=== PATIENT | male | born 1955 | race Caucasian/White ===

== ENCOUNTER 2017-08-10 16:48 | Emergency (ER) | payer SELFPAY ==
[~2017-08-10] VITALS: Ht 170.2 cm; Wt 73.0 kg
[2017-08-10 16:54] VITALS: BP 150/95
[2017-08-10] MEDS ORDERED: THIAMINE 100MG TABLET PO ONE (17:00)
[2017-08-10] MEDS ORDERED: PLEASE ENTER HEIGHT AND WEIGHT MC SCH (17:00)
[2017-08-10] MEDS ORDERED: PLEASE ENTER ALLERGIES MC SCH ×2 (17:00)
[2017-08-10] MEDS ORDERED: THIAMINE 100MG TABLET ONE (17:05)
[2017-08-10 17:32] LABS: BLOOD UREA NITROGEN 11 mg/dL (7-18)
[2017-08-10 18:19] LABS: HEMOGLOBIN 14.5 g/dL (13.7-18.0); WHITE BLOOD COUNT 5.5 x10^3/uL (3.4-10)
[2017-08-10 18:20] LABS: DIFF TOTAL CELLS COUNTED 100 CELL DIFF
[2017-08-10 18:25] LABS: ANISOCYTOSIS 1+; VERIFY COUNTS? YES
== END 2017-08-10 18:29 | disposition home or self-care (01) ==
LOC: ED 18:23
DX: F10.129 Alcohol abuse with intoxication, unspecified (principal); F19.10 Other psychoactive substance abuse, uncomplicated; Z00.00 Encounter for general adult medical examination without abnormal findings; I10 Essential (primary) hypertension
CPT/HCPCS: 36415; 80048; 82040; 85025; 99284

== ENCOUNTER 2017-08-11 15:27 | Emergency (ER) | payer MEDICAID, MEDICARE, OTHER ==
[~2017-08-11] VITALS: Ht 170.2 cm; Wt 64.8 kg
[2017-08-11] MEDS ORDERED: FAMOTIDINE 20 MG/2 ML ONE (15:52)
[2017-08-11] MEDS ORDERED: ONDANSETRON 2MG/ML, 2ML ONE (15:52)
[2017-08-11] MEDS ORDERED: SODIUM CHLORIDE 0.9% 1,000ML IVBOLUS ONE ×2 (16:00→16:30)
[2017-08-11] MEDS ORDERED: SODIUM CHLORIDE FLUSH 10ML SYR IVF ONE (16:00)
[2017-08-11] MEDS ORDERED: ONDANSETRON 2MG/ML, 2ML IVPush ONE (16:00)
[2017-08-11] MEDS ORDERED: FAMOTIDINE 20 MG/2 ML IVP ONE (16:00)
[2017-08-11 16:16] LABS: HEMATOCRIT 42.8 % (39.2-51.8); HEMOGLOBIN 14.6 g/dL (13.7-18.0)
[2017-08-11 16:28] LABS: ASPARTATE AMINO TRANSFERASE 142 U/L (15-37); BLOOD UREA NITROGEN 13 mg/dL (7-18)
[2017-08-11 16:49] LABS: DIFF TOTAL CELLS COUNTED 100 CELL DIFF
[2017-08-11 16:52] LABS: ANISOCYTOSIS 1+
[2017-08-11 16:54] LABS: VERIFY COUNTS? YES
[2017-08-11 17:00] VITALS: BP 141/98
[2017-08-11] MEDS ORDERED: OMNIPAQUE 350 MG/ML, 100ML BOTTLE ONE (17:42)
== END 2017-08-11 18:30 | disposition home or self-care (01) ==
LOC: ED 15:50
DX: K70.0 Alcoholic fatty liver (principal); F10.221 Alcohol dependence with intoxication delirium
CPT/HCPCS: 36415; 74177; 80053; 80307; 82140; 83605; 83690; 85025; 96361; 96374; 96375; 99285; J2405; J7030; Q9967; G0479; S0028

== ENCOUNTER 2018-09-20 22:57 | Emergency (ER) | payer SELFPAY ==
[~2018-09-20] VITALS: Ht 170.2 cm; Wt 67.1 kg
[2018-09-21 00:05] VITALS: BP 156/97
== END 2018-09-21 00:41 | disposition home or self-care (01) ==
LOC: ED 09-21 00:28
DX: J20.8 Acute bronchitis due to other specified organisms (principal); J44.9 Chronic obstructive pulmonary disease, unspecified; I10 Essential (primary) hypertension; F17.200 Nicotine dependence, unspecified, uncomplicated; Z87.19 Personal history of other diseases of the digestive system
CPT/HCPCS: 71046; 99284

== ENCOUNTER 2018-11-07 17:00 | Emergency (ER) | payer SELFPAY ==
[~2018-11-07] VITALS: Ht 170.2 cm; Wt 77.3 kg
[~2018-11-07 17:00] MED LIST: ALLO100T30 PO; CARV6.2512 PO; CEFT2FRO2 IV; ERGO500017 PO; FLUT1BLS INH; FOLI-17 PO; FOND2.5D3 SQ; MULT-658 PO; NICO-487 TD; PRED10TA PO; SENN1TAB8 PO; THIA100T67 PO; VANC125C2 PO
[2018-11-07] MEDS ORDERED: DIPH,PERTUSS(ACELL),TET VAC/PF 0.5 ML IM-VACC ONE (17:30)
--- NOTE | 2018-11-07 17:39 | NUR ---
LATE NOTE ENTRY FOR 170: PT BROUGHT IN BY EMS FOR MECHANICAL GLF AND ETOH. PT HAS SKIN TEARS ON BRIDGE OF NOSE WITH DRIED RED BLOOD. PT HAS SKIN TEARS ON TOP OF RIGHT HAND WITH DRIED RED BLOOD. NADN. PT GCS 15. PT IS ALERT, ORIENTED TO SELF, PLACE, AND SITUATION. PT IS AGITATED AND STATES, "FUCK YOU BITCH, YOU PUT ME IN THIS DUMP. FUCKING LEAVE ME ALONE" WHEN THIS RN REQUESTED TO TAKE PT'S TEMPERTURE UPON ARRIVAL TO ED. PT IS RESING ON GURNEY CONNECTED TO NIBP AND CONTINOUS PULSE OX, ALL SAFETY MEASURES IN PLACE AND T.V. ON PER PT REQUEST WITH CALL LIGHT WITHIN REACH AND WARM BLANKETS PROVIDED FOR COMFORT MEASURES. NO NEEDS REQUESTED AT THIS TIME. IDANIA.
--- NOTE | 2018-11-07 17:53 | NUR ---
PT TRANSFERED TO IMAGING ON [facility].
--- NOTE | 2018-11-07 18:36 | NUR ---
PT REMOVED NIBP AND SPO2 MONITORS AND REFUSES TO HAVE VITAL SIGNS MONITORED. PT SLEEPING ON GURNEY WITH ALL SAFETY MEASURES IN PLACE AND WARM BLANKETS PROVIDED FOR COMFORT MEASURES. NADN. NO NEEDS EXPRESSED AT THIS TIME.
--- NOTE | 2018-11-07 18:51 | NUR ---
PROVIDED REPORT TO OMAR GAVIN. ALL QUESTIONS ANSWERED.
--- NOTE | 2018-11-07 19:00 | NUR ---
REPORT RECEIVED AND CARE ASSUMED. PT SLEEPING WITH RESP EVEN AND UNLABORED. BLANKET ON HIS HEAD.
--- NOTE | 2018-11-07 19:45 | NUR ---
PT MORE AROUSABLE AT THIS TIME. PT PLACED ON BP AND PULSE OX. PLACED ON O2. PT AGREES TO MONITORS AT THIS TIME. CALL LIGHT IN REACH AND PT AWARE NOT TO AMBULATE WITHOUT ASSISTANCE.
--- NOTE | 2018-11-07 20:40 | NUR ---
ATTEMPTED TO AMBULATE--PT UNABLE TO AMBULATE WITH STEADY GAIT. FALLING INTO KNIGHT AND NEEDING TO HANG ON TO BED FOR STABILITY. PT BACK TO BED. PLACED ON MONITORS. CALL LIGHT IN REACH.
--- NOTE | 2018-11-07 21:50 | NUR ---
PT SLEEPING WITH RESP EVEN AND UNLABORED. SIDE RAILS UP AND CALL LIGHT IN REACH.
--- NOTE | 2018-11-07 22:45 | NUR ---
PT SLEEPING. NO ACUTE CHANGES. REMAINS ON MONITORS. VSS.
--- NOTE | 2018-11-08 00:05 | NUR ---
NO ACUTE CHANGES. PT TO BE D/C HOME WHEN SAFE TO DO SO. CALL LIGHT IN REACH.
[2018-11-08 01:01] VITALS: BP 125/83
== END 2018-11-08 01:07 | disposition home or self-care (01) ==
LOC: ED 18:27
DX: S00.31XA Abrasion of nose, initial encounter (principal); S60.511A Abrasion of right hand, initial encounter; F10.220 Alcohol dependence with intoxication, uncomplicated; M54.2 Cervicalgia; I10 Essential (primary) hypertension; E11.9 Type 2 diabetes mellitus without complications; W19.XXXA Unspecified fall, initial encounter; Y93.89 Activity, other specified; Y92.410 Unspecified street and highway as the place of occurrence of the external cause; Y99.8 Other external cause status
CPT/HCPCS: 70450; 72125; 99284

== ENCOUNTER 2018-11-19 22:22 | Emergency (ER) | payer SELFPAY ==
[~2018-11-19] VITALS: Ht 170.2 cm; Wt 71.0 kg
[2018-11-19 22:33] VITALS: BP 139/90
[2018-11-19] MEDS ORDERED: DIPHENHYDRAMINE 50 MG CAPSULE PO ONE (23:00)
[2018-11-19] MEDS ORDERED: DIPHENHYDRAMINE 50 MG CAPSULE ONE (23:17)
== END 2018-11-19 23:47 | disposition home or self-care (01) ==
LOC: ED 23:30
DX: R21 Rash and other nonspecific skin eruption (principal); J44.9 Chronic obstructive pulmonary disease, unspecified; I10 Essential (primary) hypertension; E11.42 Type 2 diabetes mellitus with diabetic polyneuropathy
CPT/HCPCS: 99283

== ENCOUNTER 2018-12-26 23:43 | Emergency (ER) | payer MEDICARE ==
[~2018-12-26] VITALS: Ht 170.2 cm; Wt 71.0 kg
[2018-12-27] MEDS ORDERED: TRAZODONE (00:06)
[2018-12-27] MEDS ORDERED: CLONIDINE (00:06)
[2018-12-27] MEDS ORDERED: ZOLOFT (00:06)
[2018-12-27] MEDS ORDERED: CARVEDILOL (00:06)
[2018-12-27 00:17] LABS: BASOPHILS # (AUTO) 0.04 x10^3/uL (0-0.1); BASOPHILS % (AUTO) 1 % (0-1); EOSINOPHILS # (AUTO) 0.15 x10^3/uL (0-0.4); EOSINOPHILS % (AUTO) 2 % (1-7); LYMPHOCYTES # (AUTO) 1.72 x10^3/uL (1-3.4); LYMPHOCYTES % (AUTO) 19 % (22-44); MD NO; MEAN CORPUSCULAR HEMOGLOBIN 31.8 pg (27.5-34.5); MEAN CORPUSCULAR HGB CONC 33.5 g/dL (33.2-36.2); MEAN CORPUSCULAR VOLUME 95.1 fL (81-97); MEAN PLATELET VOLUME 7.2 fL (7.4-10.4); MONOCYTES # (AUTO) 1.06 x10^3/uL (0.2-0.8); MONOCYTES % (AUTO) 12 % (2-9); NEUTROPHILS # (AUTO) 6.14 x10^3/uL (1.8-6.8); NEUTROPHILS % (AUTO) 67 % (42-75); PLATELET COUNT 314 x10^3/uL (130-400); RED BLOOD COUNT 3.83 x10^6/uL (4.38-5.82); RED CELL DISTRIBUTION WIDTH 15.9 % (9.4-14.8)
[2018-12-27 00:29] LABS: ALANINE AMINOTRANSFERASE 23 U/L (12-78); ANION GAP 5 mmol/L (5-15); CALCIUM 8.7 mg/dL (8.5-10.1); CHLORIDE 107 mmol/L (98-107); CREATININE 1.17 mg/dL (0.7-1.3)
[2018-12-27 00:31] LABS: ALKALINE PHOSPHATASE 77 U/L (45-117); BILIRUBIN,TOTAL 0.2 mg/dL (0.2-1.0); TOTAL PROTEIN 7.3 g/dL (6.4-8.2)
--- NOTE | 2018-12-27 00:47 | NUR ---
PT RESTING IN BED CALMLY AT THIS TIME. ALL RESULTS BACK, PT UP FOR RECHECK.
[2018-12-27 01:43] VITALS: BP 144/69
--- NOTE | 2018-12-27 01:43 | NUR ---
GIVEN DC INSTRUCTION WITH TAXI ANSHU FOR RIDING TO [facility] PT UP AMBUALTED TO CHECK OUT WITH STABLE GAIT VSS
== END 2018-12-27 01:45 | disposition home or self-care (01) ==
LOC: ED 12-27 00:30
DX: R44.3 Hallucinations, unspecified (principal); J44.9 Chronic obstructive pulmonary disease, unspecified; I10 Essential (primary) hypertension; E11.9 Type 2 diabetes mellitus without complications; R51 Headache; F17.210 Nicotine dependence, cigarettes, uncomplicated; Z72.9 Problem related to lifestyle, unspecified
CPT/HCPCS: 36415; 70450; 80053; 85025; 99284

== ENCOUNTER 2019-08-25 22:28 | Inpatient (IN) | payer MEDICARE, MEDICAID ==
[~2019-08-25] VITALS: Ht 170.2 cm; Wt 61.7 kg
[~2019-08-25 22:28] MED LIST changes: +CARVEDILOL; +CLONIDINE; +SENN-177 PO; -SENN1TAB8 PO; +TRAZODONE; -VANC125C2 PO; +VANC125C3 PO; +ZOLOFT
--- NOTE | 2019-08-25 22:39 | NUR ---
BROUGHT IN BY [facility] FROM [facility] IN [facility]. C/O LEFT SIDED CHEST PAIN WITH SOB X 5 DAYS. NON RADIATING. NITRO X 1 AND ASPIRIN 324 MG GIVEN BY EMS.
--- NOTE | 2019-08-25 22:45 | NUR ---
ASSUMED CARE OF PATIENT IN TRAUMA 3. SBAR HAND-OFF REPORT RECEIVED FROM OMAR BARBOSA.
[2019-08-25] MEDS ORDERED: PIPERACILLIN/TAZO/PMX 3.375GM 50 ML ONE (22:54)
[2019-08-25] MEDS ORDERED: PHARMACOKINETIC CONSULTATION MC ONE (23:00)
[2019-08-25] MEDS ORDERED: PIPERACILLIN/TAZO/PMX 3.375GM 50 ML IVPB ONE (23:00)
[2019-08-25] MEDS ORDERED: VANCOMYCIN PER PHARMACY MC ONE (23:00)
[2019-08-25] MEDS ORDERED: SODIUM CHLORIDE 0.9% 1,000ML IVBOLUS ONE ×2 (23:00)
[2019-08-25] MEDS ORDERED: SODIUM CHLORIDE FLUSH 10ML SYR IVF ONE (23:00)
[2019-08-25] MEDS ORDERED: VANCOMYCIN 1,200 MG in SODIUM CHLORIDE 0.9% 250 ML IV ONE (23:00)
[2019-08-25 23:09] LABS: MEAN CORPUSCULAR HEMOGLOBIN 32.8 pg (27.5-34.5); MEAN CORPUSCULAR VOLUME 99.3 fL (81-97); MEAN PLATELET VOLUME 9.1 fL (7.4-10.4); PLATELET COUNT 252 x10^3/uL (130-400); RED BLOOD COUNT 4.01 x10^6/uL (4.38-5.82); RED CELL DISTRIBUTION WIDTH 16.2 % (9.4-14.8)
[2019-08-25 23:13] LABS: ALANINE AMINOTRANSFERASE 53 U/L (12-78); ALBUMIN 2.1 g/dL (3.4-5.0); ANION GAP 17 mmol/L (5-15); CALCIUM 7.9 mg/dL (8.5-10.1); CHLORIDE 84 mmol/L (98-107); CREATININE 2.22 mg/dL (0.7-1.3)
[2019-08-25 23:17] LABS: ALKALINE PHOSPHATASE 54 U/L (45-117); BILIRUBIN,TOTAL 0.8 mg/dL (0.2-1.0); TOTAL PROTEIN 6.9 g/dL (6.4-8.2); TROPONIN I < 0.015 ng/mL (0.000-0.045)
[2019-08-25] MEDS ORDERED: CYCL5TAB PO (23:20)
[2019-08-25] MEDS ORDERED: ALLO100T30 PO (23:20)
[2019-08-25] MEDS ORDERED: FLUT16SP24 NS (23:20)
[2019-08-25] MEDS ORDERED: CARV12.52 PO (23:20)
[2019-08-25] MEDS ORDERED: FOLI-17 PO (23:20)
[2019-08-25] MEDS ORDERED: SERT-238 PO (23:20)
[2019-08-25] MEDS ORDERED: CETI10TA18 PO (23:20)
[2019-08-25] MEDS ORDERED: LISI10TA2 PO (23:20)
[2019-08-25] MEDS ORDERED: TRAZ-137 PO (23:20)
[2019-08-25] MEDS ORDERED: DICL100G19 TP (23:45)
[2019-08-25] MEDS ORDERED: MULT-797 PO (23:45)
[2019-08-25] MEDS ORDERED: GABA600T7 PO (23:45)
[2019-08-25] MEDS ORDERED: THIA100T27 PO (23:45)
[2019-08-25] MEDS ORDERED: ALBU18HF INH (23:45)
--- NOTE | 2019-08-25 23:46 | NUR ---
TRIALED NASAL CANNULA AT PATIENT'S REQUEST BUT PATIENT'S SPO2 DECREASED TO 86% ON 6L. REMOVED CANNULA AND RE-APPLIED OXYMASK. SPO2 UP TO 96% NOW. VS NORMALIZING.
--- NOTE | 2019-08-25 23:47 | NUR ---
BLOOD CULTURES DRAWN X 2 AND IV ZOSYN INFUSED AFTER BLOOD CULTURES WERE DRAWN. IV VANCOMYCIN INFUSING NOW. PT TOLERATING ALL TREATMENTS WELL.
--- NOTE | 2019-08-25 23:53 | NUR ---
DR. PIÑA AT BEDSIDE DISCUSSING PLAN OF CARE OF PATIENT AND HOSPITAL ADMISSION.
--- NOTE | 2019-08-25 23:53 | NUR ---
FLU SPECIMEN COLLECTED AND SENT TO LAB. 2 L NS BOLUSES COMPLETE.
[2019-08-25 23:57] LABS: MD YES
[2019-08-25] MEDS ORDERED: HYDR-826 PO (23:59)
[2019-08-26 00:01] LABS: ANISOCYTOSIS 1+; BAND#(MANUAL) 2.86 x10^3/uL; BANDS%(MANUAL) 13 % (0-7); LYMPHS% (MANUAL) 5 % (22-44); MONOS#(MANUAL) 1.98 x10^3/uL (0.3-2.7); MONOS% (MANUAL) 9 % (2-9); SEG#(MANUAL) 16.06 x10^3/uL (1.8-6.8); SEGS% (MANUAL) 73 % (42-75)
[2019-08-26 00:02] LABS: <PLATELET ESTIMATE> ADEQUATE; LARGE PLATELETS 1+
[2019-08-26 00:12] LABS: RAPID INFLUENZA A Negative (Negative); RAPID INFLUENZA B Negative (Negative)
--- NOTE | 2019-08-26 00:20 | NUR ---
KCL INFUSION STARTED ORDERED. HOSPITAL BED ORDERED FOR PATIENT COMFORT PATIENT IS COMPLAINING OF HAVING A HARD TIME GETTING COMFORTABLE ON RLAKE LYNN.
[2019-08-26] MEDS ORDERED: POTASSIUM CHLORIDE 40 MEQ in SODIUM CHLORIDE 0.9% 500 ML IV ONE (00:30)
--- NOTE | 2019-08-26 01:19 | NUR ---
REPORT RECEIVED AND CARE ASSUMED. PT STATES HE DOES NOT WANT TO WEAR OXYMASK. WILL ATTEMPT NC @6L. PT TACHY ON MONITOR WITH 6-7 BEAT RUN OF V-TACH NOTED ON MONITOR DURING RN BEDSIDE REPORT. ERP IS AWARE. NO FURTHER ORDERS AT THIS TIME. AWAITING TRANSFER TO FLOOR.
[2019-08-26] MEDS ORDERED: VANCOMYCIN PER PHARMACY MC PRN (01:30)
[2019-08-26] MEDS ORDERED: PROMETHAZINE 25 MG/ML, 1ML IM PRN (01:30)
[2019-08-26] MEDS ORDERED: HEPARIN 5,000 UNITS/ML, 1ML SQ SCH (01:30)
[2019-08-26] MEDS ORDERED: ONDANSETRON 2MG/ML, 2ML IVPush PRN (01:30)
[2019-08-26] MEDS ORDERED: PHARMACY MAY ADJ FOR RENAL FX MC PRN (01:30)
[2019-08-26] MEDS ORDERED: ACETAMINOPHEN 325 MG TABLET PO PRN (01:30)
--- NOTE | 2019-08-26 01:34 | NUR ---
SBAR TELEPHONE HAND-OFF REPORT TO OMAR SCHMIDT IN CCU.
[2019-08-26] MEDS: CARVEDILOL 12.5 MG TABLET PO SCH ×2 (02:00→16:00)
[2019-08-26] MEDS ORDERED: PHARMACOKINETIC MONITORING MC PRN (02:00)
[2019-08-26] MEDS ORDERED: ALBUTEROL/IPRATROPIUM 2.5MG/0.5MG, 3 ML ONE (02:04)
[2019-08-26] MEDS ORDERED: LORazepam 2 MG/ML, 1ML ONE (02:38)
[2019-08-26] MEDS: LORazepam 2 MG/ML, 1ML IVPush PRN ×2 (02:40→22:08)
[2019-08-26] MEDS: methylPREDNISolone SOD SUCC 125 MG/2 ML IVPush SCH ×4 (02:41→19:39)
[2019-08-26] MEDS ORDERED: LIDOCAINE-MPF 1%, 2ML ENDO PRN (03:30)
[2019-08-26] MEDS ORDERED: PHARMACY MAY ADJ FOR RENAL FX MC SCH (03:30)
[2019-08-26 04:00] VITALS: BP 94/60
[2019-08-26 04:50] VITALS: BP 85/61
[2019-08-26 05:00] VITALS: BP 87/59
[2019-08-26] MEDS ORDERED: MAGNESIUM SULFATE PMX 2GM/50ML 50 ML IV ONE (05:00)
[2019-08-26 05:01] LABS: CHLORIDE 94 mmol/L (98-107)
[2019-08-26 05:10] LABS: ANION GAP 12 mmol/L (5-15); CALCIUM 7.6 mg/dL (8.5-10.1); CREATININE 1.95 mg/dL (0.7-1.3); TROPONIN I < 0.015 ng/mL (0.000-0.045)
[2019-08-26 05:21] LABS: POTASSIUM,URINE RANDOM 18 mmol/L; SODIUM,URINE RANDOM 7 mmol/L
[2019-08-26 05:27] LABS: AMPHETAMINE SCREEN, URINE Negative (Negative); BARBITURATE SCREEN, URINE Negative (Negative); BENZODIAZEPINE SCREEN, URINE Negative (Negative); CANNABINOID SCREEN, URINE Negative (Negative); COCAINE SCREEN, URINE Negative (Negative); METHADONE SCREEN, URINE Negative (Negative); OPIATE SCREEN, URINE Negative (Negative)
[2019-08-26 05:28] LABS: AMPHETAMINE SCREEN, URINE Negative (Negative); BARBITURATE SCREEN, URINE Negative (Negative); BENZODIAZEPINE SCREEN, URINE Negative (Negative); CANNABINOID SCREEN, URINE Negative (Negative); COCAINE SCREEN, URINE Negative (Negative); METHADONE SCREEN, URINE Negative (Negative); OPIATE SCREEN, URINE Negative (Negative)
[2019-08-26 05:37] LABS: CHLORIDE,URINE RANDOM < 10 mmol/L
[2019-08-26] MEDS ORDERED: ALBUTEROL/IPRATROPIUM 2.5MG/0.5MG, 3 ML NPPB SCH (06:00)
[2019-08-26] MEDS: NS + 40MEQ KCL 1,000 ML IV SCH ×2 (06:01→11:24)
[2019-08-26] MEDS: PIPERACILLIN/TAZO/PMX 3.375GM 50 ML IV SCH ×4 (06:01→21:57)
[2019-08-26] MEDS: ALBUTEROL/IPRATROPIUM 2.5MG/0.5MG, 3 ML NPPB SCH ×5 (07:00→22:36)
[2019-08-26 07:53] LABS: MICROSCOPIC NOT IND
[2019-08-26 07:57] LABS: CULTURE INDICATED? NO
[2019-08-26] MEDS ORDERED: FAMOTIDINE 20 MG/2 ML IVPush SCH (09:00)
[2019-08-26] MEDS: BUDESONIDE 0.5 MG/2 ML INHA NPPB SCH ×2 (09:00→22:30)
[2019-08-26] MEDS: POTASSIUM CHLORIDE 20 MEQ, MAGNESIUM SULFATE 2 GM, THIAMINE 200 MG, MVI ADULT 10 ML, FO... IV SCH (09:34)
[2019-08-26] MEDS: FONDAPARINUX 2.5 MG/0.5 ML SQ SCH (09:35)
[2019-08-26] MEDS ORDERED: ETOMIDATE 20 MG/10 ML ONE (10:16)
[2019-08-26] MEDS ORDERED: PROPOFOL 10 MG/ML, 100ML IV ONE (10:16)
[2019-08-26] MEDS ORDERED: MIDAZOLAM 1 MG/ML, 5ML ONE (10:16)
[2019-08-26] MEDS ORDERED: NOREPINEPHRINE 8 MG in SODIUM CHLORIDE 0.9% 242 ML IV PRN (11:00)
[2019-08-26] MEDS: LINEZOLID PMX 600MG/300ML 300 ML IV SCH ×2 (11:14→23:17)
[2019-08-26 11:31] LABS: TROPONIN I < 0.015 ng/mL (0.000-0.045)
--- NOTE | 2019-08-26 14:35 | NUR ---
TF RECOMMENDATION: Promote @ 70 ml/hr on propofol; Promote @ 75 ml/hr off propofol Addendum: 08/26/19 at [address] Amended: Links added.
[2019-08-26] MEDS: PROPOFOL 100 ML IV PRN (18:50)
[2019-08-26 18:52] LABS: CALCIUM 8.3 mg/dL (8.5-10.1); CREATININE 1.64 mg/dL (0.7-1.3)
[2019-08-26 18:59] LABS: ANION GAP 11 mmol/L (5-15); CHLORIDE 98 mmol/L (98-107)
[2019-08-26] MEDS ORDERED: VANCOMYCIN 1,200 MG in SODIUM CHLORIDE 0.9% 250 ML IV SCH (23:00)
[2019-08-27 00:13] LABS: ANION GAP 10 mmol/L (5-15); CALCIUM 8.5 mg/dL (8.5-10.1); CHLORIDE 103 mmol/L (98-107); CREATININE 1.49 mg/dL (0.7-1.3)
[2019-08-27] MEDS ORDERED: POTASSIUM CHLORIDE 10% 40 MEQ/30 ML UDC PO ONE (00:30)
[2019-08-27] MEDS: NS + 40MEQ KCL 1,000 ML IV SCH ×2 (00:36→21:23)
[2019-08-27] MEDS: PROPOFOL 100 ML IV PRN ×4 (00:36→17:19)
[2019-08-27] MEDS: methylPREDNISolone SOD SUCC 125 MG/2 ML IVPush SCH ×3 (01:28→19:38)
[2019-08-27] MEDS: LORazepam 2 MG/ML, 1ML IVPush PRN (01:28)
[2019-08-27] MEDS: ALBUTEROL/IPRATROPIUM 2.5MG/0.5MG, 3 ML NPPB SCH ×6 (02:12→22:10)
[2019-08-27 03:46] LABS: MEAN CORPUSCULAR HEMOGLOBIN 32.6 pg (27.5-34.5); MEAN CORPUSCULAR HGB CONC 32.6 g/dL (33.2-36.2); MEAN PLATELET VOLUME 9.4 fL (7.4-10.4); PLATELET COUNT 230 x10^3/uL (130-400); RED BLOOD COUNT 3.28 x10^6/uL (4.38-5.82); RED CELL DISTRIBUTION WIDTH 16.3 % (9.4-14.8)
[2019-08-27 03:52] LABS: MD YES
[2019-08-27 03:57] LABS: ALBUMIN 1.6 g/dL (3.4-5.0); ANION GAP 8 mmol/L (5-15); CALCIUM 8.5 mg/dL (8.5-10.1); CHLORIDE 104 mmol/L (98-107)
[2019-08-27 03:58] LABS: BAND#(MANUAL) 1.11 x10^3/uL; BANDS%(MANUAL) 6 % (0-7); LYMPH#(MANUAL) 0.56 x10^3/uL (1-3.4); LYMPHS% (MANUAL) 3 % (22-44); MONOS#(MANUAL) 0.19 x10^3/uL (0.3-2.7); MONOS% (MANUAL) 1 % (2-9); SEG#(MANUAL) 16.65 x10^3/uL (1.8-6.8); SEGS% (MANUAL) 90 % (42-75)
[2019-08-27 03:59] LABS: <PLATELET ESTIMATE> ADEQUATE; ANISOCYTOSIS 1+; LARGE PLATELETS 1+; OVALOCYTES 1+
[2019-08-27 04:00] LABS: TOXIC GRAN 1+
[2019-08-27 04:01] LABS: ALANINE AMINOTRANSFERASE 30 U/L (12-78); ALKALINE PHOSPHATASE 39 U/L (45-117); BILIRUBIN,TOTAL 0.7 mg/dL (0.2-1.0); CREATININE 1.46 mg/dL (0.7-1.3); TOTAL PROTEIN 5.6 g/dL (6.4-8.2)
[2019-08-27] MEDS: PIPERACILLIN/TAZO/PMX 3.375GM 50 ML IV SCH ×4 (04:02→22:35)
[2019-08-27 05:20] VITALS: BP 106/73
[2019-08-27 07:00] LABS: ANION GAP 8 mmol/L (5-15); CALCIUM 8.5 mg/dL (8.5-10.1); CHLORIDE 106 mmol/L (98-107)
[2019-08-27] MEDS: BUDESONIDE 0.5 MG/2 ML INHA NPPB SCH ×2 (07:19→18:28)
[2019-08-27] MEDS ORDERED: NOREPINEPHRINE 4 MG in SODIUM CHLORIDE 0.9% 246 ML IV PRN (08:00)
[2019-08-27] MEDS: morphine SULFATE 10 MG/ML, 1ML IVPush PRN ×2 (08:48→16:42)
[2019-08-27] MEDS: FAMOTIDINE 20 MG/2 ML IVPush SCH (08:58)
[2019-08-27] MEDS: FONDAPARINUX 2.5 MG/0.5 ML SQ SCH (08:58)
[2019-08-27] MEDS: POTASSIUM CHLORIDE 20 MEQ, MAGNESIUM SULFATE 2 GM, THIAMINE 200 MG, MVI ADULT 10 ML, FO... IV SCH (10:51)
[2019-08-27] MEDS: LINEZOLID PMX 600MG/300ML 300 ML IV SCH ×2 (12:13→23:15)
[2019-08-28] MEDS: PROPOFOL 100 ML IV PRN ×5 (01:01→20:35)
[2019-08-28] MEDS ORDERED: POTASSIUM CHLORIDE 20 MEQ, MAGNESIUM SULFATE 2 GM, THIAMINE 200 MG, MVI ADULT 10 ML, FO... IV SCH (01:11)
[2019-08-28] MEDS: ALBUTEROL/IPRATROPIUM 2.5MG/0.5MG, 3 ML NPPB SCH ×6 (02:12→22:09)
[2019-08-28] MEDS: LORazepam 2 MG/ML, 1ML IVPush PRN (03:54)
[2019-08-28 04:45] LABS: MEAN CORPUSCULAR HEMOGLOBIN 32.3 pg (27.5-34.5); MEAN CORPUSCULAR HGB CONC 32.3 g/dL (33.2-36.2); MEAN PLATELET VOLUME 9.1 fL (7.4-10.4); PLATELET COUNT 230 x10^3/uL (130-400); RED BLOOD COUNT 2.95 x10^6/uL (4.38-5.82); RED CELL DISTRIBUTION WIDTH 17.3 % (9.4-14.8)
[2019-08-28] MEDS: PIPERACILLIN/TAZO/PMX 3.375GM 50 ML IV SCH ×4 (04:48→22:31)
[2019-08-28 05:07] LABS: BASOPHILS % (AUTO) 0 % (0-1); EOSINOPHILS % (AUTO) 0 % (1-7); LYMPHOCYTES # (AUTO) 0.19 x10^3/uL (1-3.4); LYMPHOCYTES % (AUTO) 1 % (22-44); MD SCAN; MONOCYTES # (AUTO) 0.31 x10^3/uL (0.2-0.8); MONOCYTES % (AUTO) 2 % (2-9); NEUTROPHILS # (AUTO) 15.84 x10^3/uL (1.8-6.8); NEUTROPHILS % (AUTO) 97 % (42-75)
[2019-08-28] MEDS: BUDESONIDE 0.5 MG/2 ML INHA NPPB SCH ×2 (07:00→18:25)
[2019-08-28] MEDS ORDERED: NEOSPORIN OINT. PKT 1 PACKET TP PRN (08:30)
[2019-08-28] MEDS: FONDAPARINUX 2.5 MG/0.5 ML SQ SCH (08:58)
[2019-08-28] MEDS: FAMOTIDINE 20 MG/2 ML IVPush SCH ×2 (08:59→20:59)
[2019-08-28] MEDS: methylPREDNISolone SOD SUCC 125 MG/2 ML IVPush SCH ×2 (08:59→19:34)
[2019-08-28] MEDS: DIAZEPAM 5 MG/ML, 2ML IV SCH ×3 (09:20→20:59)
[2019-08-28 09:31] LABS: ALBUMIN 1.5 g/dL (3.4-5.0)
[2019-08-28] MEDS ORDERED: FENTANYL PF 100 MCG/2ML ONE (09:32)
[2019-08-28 09:33] LABS: ALKALINE PHOSPHATASE 38 U/L (45-117); BILIRUBIN,TOTAL 0.6 mg/dL (0.2-1.0); TOTAL PROTEIN 5.2 g/dL (6.4-8.2)
[2019-08-28] MEDS ORDERED: FENTANYL PF 100 MCG/2ML IVPush PRN (10:00)
[2019-08-28 10:32] LABS: ANION GAP 11 mmol/L (5-15); CHLORIDE 110 mmol/L (98-107)
[2019-08-28 10:36] LABS: ALANINE AMINOTRANSFERASE 22 U/L (12-78); CREATININE 1.38 mg/dL (0.7-1.3)
[2019-08-28] MEDS: LINEZOLID PMX 600MG/300ML 300 ML IV SCH ×2 (12:41→23:14)
[2019-08-28] MEDS: morphine SULFATE 10 MG/ML, 1ML IVPush PRN (14:01)
[2019-08-28] MEDS: NS + 40MEQ KCL 1,000 ML IV SCH (16:10)
[2019-08-29] MEDS: NS + 40MEQ KCL 1,000 ML IV SCH (00:45)
[2019-08-29] MEDS: PROPOFOL 100 ML IV PRN ×5 (00:56→20:19)
[2019-08-29] MEDS: ALBUTEROL/IPRATROPIUM 2.5MG/0.5MG, 3 ML NPPB SCH ×6 (02:22→22:34)
[2019-08-29] MEDS: DIAZEPAM 5 MG/ML, 2ML IV SCH ×4 (03:06→20:37)
[2019-08-29] MEDS: PIPERACILLIN/TAZO/PMX 3.375GM 50 ML IV SCH ×4 (04:55→22:28)
[2019-08-29 05:25] LABS: CHLORIDE 114 mmol/L (98-107); MEAN CORPUSCULAR HEMOGLOBIN 32.6 pg (27.5-34.5); MEAN CORPUSCULAR HGB CONC 32.3 g/dL (33.2-36.2); MEAN CORPUSCULAR VOLUME 100.9 fL (81-97); MEAN PLATELET VOLUME 9.1 fL (7.4-10.4); PLATELET COUNT 252 x10^3/uL (130-400); RED BLOOD COUNT 2.99 x10^6/uL (4.38-5.82); RED CELL DISTRIBUTION WIDTH 17.3 % (9.4-14.8)
[2019-08-29 05:34] LABS: ALBUMIN 1.6 g/dL (3.4-5.0); ANION GAP 5 mmol/L (5-15); CALCIUM 8.3 mg/dL (8.5-10.1); CREATININE 1.27 mg/dL (0.7-1.3); TRIGLYCERIDES 127 mg/dL (50-200)
[2019-08-29 05:51] LABS: BASOPHILS # (AUTO) 0.02 x10^3/uL (0-0.1); BASOPHILS % (AUTO) 0 % (0-1); EOSINOPHILS % (AUTO) 0 % (1-7); LYMPHOCYTES # (AUTO) 0.27 x10^3/uL (1-3.4); LYMPHOCYTES % (AUTO) 2 % (22-44); MD SCAN; MONOCYTES # (AUTO) 0.37 x10^3/uL (0.2-0.8); MONOCYTES % (AUTO) 3 % (2-9); NEUTROPHILS # (AUTO) 11.73 x10^3/uL (1.8-6.8); NEUTROPHILS % (AUTO) 95 % (42-75)
[2019-08-29] MEDS: BUDESONIDE 0.5 MG/2 ML INHA NPPB SCH ×2 (06:25→18:18)
[2019-08-29] MEDS: methylPREDNISolone SOD SUCC 125 MG/2 ML IVPush SCH ×2 (09:31→20:37)
[2019-08-29] MEDS: FAMOTIDINE 20 MG/2 ML IVPush SCH ×2 (09:31→20:37)
[2019-08-29] MEDS: SODIUM CHLORIDE 0.45% 1,000 ML IV SCH ×2 (09:32→22:27)
[2019-08-29] MEDS: FONDAPARINUX 2.5 MG/0.5 ML SQ SCH (09:32)
[2019-08-29] MEDS: THIAMINE 200 MG in SODIUM CHLORIDE 0.9% 50 ML IV SCH ×2 (09:54→20:37)
[2019-08-29 10:13] LABS: CLOSTRIDIUM DIFFICILE ANTIGEN NEGATIVE; CLOSTRIDIUM DIFFICILE TOXIN NEGATIVE (Negative)
[2019-08-29] MEDS: LINEZOLID PMX 600MG/300ML 300 ML IV SCH ×2 (11:47→23:01)
[2019-08-29] MEDS: QUETIAPINE 25MG TABLET PO SCH (20:37)
[2019-08-30] MEDS: PROPOFOL 100 ML IV PRN ×4 (01:11→21:02)
[2019-08-30] MEDS: ALBUTEROL/IPRATROPIUM 2.5MG/0.5MG, 3 ML NPPB SCH ×6 (03:00→22:23)
[2019-08-30] MEDS: DIAZEPAM 5 MG/ML, 2ML IV SCH ×4 (04:02→20:58)
[2019-08-30] MEDS: PIPERACILLIN/TAZO/PMX 3.375GM 50 ML IV SCH ×4 (04:02→22:28)
[2019-08-30] MEDS: QUETIAPINE 25MG TABLET PO SCH ×3 (04:35→20:58)
[2019-08-30 04:48] LABS: BASOPHILS # (AUTO) 0.02 x10^3/uL (0-0.1); BASOPHILS % (AUTO) 0 % (0-1); EOSINOPHILS # (AUTO) 0.05 x10^3/uL (0-0.4); EOSINOPHILS % (AUTO) 1 % (1-7); LYMPHOCYTES # (AUTO) 0.44 x10^3/uL (1-3.4); LYMPHOCYTES % (AUTO) 5 % (22-44); MD NO; MEAN CORPUSCULAR HEMOGLOBIN 32.8 pg (27.5-34.5); MEAN CORPUSCULAR HGB CONC 32.3 g/dL (33.2-36.2); MEAN CORPUSCULAR VOLUME 101.5 fL (81-97); MEAN PLATELET VOLUME 8.7 fL (7.4-10.4); MONOCYTES # (AUTO) 0.27 x10^3/uL (0.2-0.8); MONOCYTES % (AUTO) 3 % (2-9); NEUTROPHILS # (AUTO) 8.79 x10^3/uL (1.8-6.8); NEUTROPHILS % (AUTO) 92 % (42-75); PLATELET COUNT 248 x10^3/uL (130-400); RED BLOOD COUNT 3.03 x10^6/uL (4.38-5.82); RED CELL DISTRIBUTION WIDTH 17.8 % (9.4-14.8)
[2019-08-30] MEDS: BUDESONIDE 0.5 MG/2 ML INHA NPPB SCH ×2 (07:00→18:50)
[2019-08-30] MEDS: methylPREDNISolone SOD SUCC 125 MG/2 ML IVPush SCH ×2 (08:21→20:59)
[2019-08-30] MEDS ORDERED: MAGNESIUM SULFATE PMX 2GM/50ML 50 ML IV ONE (08:30)
[2019-08-30 09:09] LABS: ALANINE AMINOTRANSFERASE 25 U/L (12-78); ALBUMIN 1.6 g/dL (3.4-5.0); ANION GAP 7 mmol/L (5-15); CALCIUM 8.4 mg/dL (8.5-10.1); CHLORIDE 112 mmol/L (98-107)
[2019-08-30 09:12] LABS: ALKALINE PHOSPHATASE 37 U/L (45-117); BILIRUBIN,TOTAL 0.3 mg/dL (0.2-1.0); TOTAL PROTEIN 5.3 g/dL (6.4-8.2)
[2019-08-30] MEDS: FAMOTIDINE 20 MG/2 ML IVPush SCH ×2 (09:51→20:59)
[2019-08-30] MEDS: FONDAPARINUX 2.5 MG/0.5 ML SQ SCH (09:51)
[2019-08-30] MEDS: THIAMINE 200 MG in SODIUM CHLORIDE 0.9% 50 ML IV SCH ×2 (10:50→20:59)
[2019-08-30] MEDS: LINEZOLID PMX 600MG/300ML 300 ML IV SCH ×2 (11:34→23:13)
[2019-08-30] MEDS: SODIUM CHLORIDE 0.45% 1,000 ML IV SCH (14:11)
[2019-08-30] MEDS ORDERED: SCOPOLAMINE PATCH, 1.5MG PATCH.TD72 TD SCH (19:00)
[2019-08-31] MEDS: ALBUTEROL/IPRATROPIUM 2.5MG/0.5MG, 3 ML NPPB SCH ×3 (02:11→11:00)
[2019-08-31] MEDS: SODIUM CHLORIDE 0.45% 1,000 ML IV SCH (02:54)
[2019-08-31] MEDS: DIAZEPAM 5 MG/ML, 2ML IV SCH (02:59)
[2019-08-31 04:22] LABS: MEAN CORPUSCULAR HEMOGLOBIN 32.3 pg (27.5-34.5); MEAN CORPUSCULAR HGB CONC 32.5 g/dL (33.2-36.2); MEAN CORPUSCULAR VOLUME 99.6 fL (81-97); MEAN PLATELET VOLUME 8.4 fL (7.4-10.4); PLATELET COUNT 284 x10^3/uL (130-400); RED CELL DISTRIBUTION WIDTH 17.4 % (9.4-14.8)
[2019-08-31] MEDS: PIPERACILLIN/TAZO/PMX 3.375GM 50 ML IV SCH ×4 (04:30→22:40)
[2019-08-31 04:35] LABS: ALANINE AMINOTRANSFERASE 30 U/L (12-78); ALBUMIN 1.6 g/dL (3.4-5.0); ANION GAP 7 mmol/L (5-15); CALCIUM 8.2 mg/dL (8.5-10.1); CHLORIDE 110 mmol/L (98-107); CREATININE 0.77 mg/dL (0.7-1.3)
[2019-08-31 04:37] LABS: ALKALINE PHOSPHATASE 44 U/L (45-117); BILIRUBIN,TOTAL 0.3 mg/dL (0.2-1.0); TOTAL PROTEIN 5.4 g/dL (6.4-8.2)
[2019-08-31] MEDS: QUETIAPINE 25MG TABLET PO SCH ×2 (04:57→13:00)
[2019-08-31 05:51] LABS: BASOPHILS # (AUTO) 0.02 x10^3/uL (0-0.1); BASOPHILS % (AUTO) 0 % (0-1); EOSINOPHILS # (AUTO) 0.01 x10^3/uL (0-0.4); EOSINOPHILS % (AUTO) 0 % (1-7); LYMPHOCYTES # (AUTO) 0.47 x10^3/uL (1-3.4); LYMPHOCYTES % (AUTO) 4 % (22-44); MD SCAN; MONOCYTES # (AUTO) 0.32 x10^3/uL (0.2-0.8); MONOCYTES % (AUTO) 3 % (2-9); NEUTROPHILS % (AUTO) 92 % (42-75)
[2019-08-31] MEDS: PROPOFOL 100 ML IV PRN (06:23)
[2019-08-31] MEDS: methylPREDNISolone SOD SUCC 125 MG/2 ML IVPush SCH ×2 (07:52→20:04)
[2019-08-31] MEDS ORDERED: MAGNESIUM SULFATE PMX 2GM/50ML 50 ML IV ONE (08:30)
[2019-08-31] MEDS: THIAMINE 200 MG in SODIUM CHLORIDE 0.9% 50 ML IV SCH ×2 (08:46→21:43)
[2019-08-31] MEDS: BUDESONIDE 0.5 MG/2 ML INHA NPPB SCH ×2 (09:00→19:28)
[2019-08-31] MEDS ORDERED: FUROSEMIDE 20 MG/2 ML IV ONE (09:00)
[2019-08-31] MEDS ORDERED: DIAZEPAM 5 MG/ML, 2ML IV SCH (09:00)
[2019-08-31] MEDS: FAMOTIDINE 20 MG/2 ML IVPush SCH ×2 (09:56→21:43)
[2019-08-31] MEDS: FONDAPARINUX 2.5 MG/0.5 ML SQ SCH (09:56)
[2019-08-31] MEDS ORDERED: DIAZEPAM 5 MG/ML, 2ML IV PRN (10:00)
[2019-08-31] MEDS ORDERED: ALBUTEROL SULFATE 2.5 MG/3 ML NPPB PRN (12:30)
[2019-08-31] MEDS: LINEZOLID PMX 600MG/300ML 300 ML IV SCH (12:41)
[2019-08-31] MEDS: ALBUTEROL SULFATE 2.5 MG/3 ML NPPB SCH ×2 (14:12→19:28)
[2019-08-31] MEDS: CHOLESTYRAMINE LIGHT 4GM PACKET PO SCH ×2 (14:37→21:43)
[2019-09-01 04:31] LABS: MEAN CORPUSCULAR HEMOGLOBIN 32.1 pg (27.5-34.5); MEAN CORPUSCULAR HGB CONC 31.8 g/dL (33.2-36.2); MEAN CORPUSCULAR VOLUME 100.7 fL (81-97); MEAN PLATELET VOLUME 8.5 fL (7.4-10.4); PLATELET COUNT 330 x10^3/uL (130-400); RED BLOOD COUNT 3.44 x10^6/uL (4.38-5.82); RED CELL DISTRIBUTION WIDTH 16.9 % (9.4-14.8)
[2019-09-01 04:40] LABS: ALBUMIN 1.8 g/dL (3.4-5.0); ANION GAP 5 mmol/L (5-15); CALCIUM 8.7 mg/dL (8.5-10.1); CHLORIDE 112 mmol/L (98-107)
[2019-09-01 04:43] LABS: ALANINE AMINOTRANSFERASE 33 U/L (12-78); ALKALINE PHOSPHATASE 55 U/L (45-117); BILIRUBIN,TOTAL 0.3 mg/dL (0.2-1.0); CREATININE 0.79 mg/dL (0.7-1.3); TOTAL PROTEIN 5.7 g/dL (6.4-8.2); TRIGLYCERIDES 205 mg/dL (50-200)
[2019-09-01 04:45] LABS: MD YES
[2019-09-01 04:46] LABS: BAND#(MANUAL) 0.13 x10^3/uL; BANDS%(MANUAL) 1 % (0-7); LYMPH#(MANUAL) 1.56 x10^3/uL (1-3.4); LYMPHS% (MANUAL) 12 % (22-44); METAMYELOCYTES# (MANUAL) 0.13 x10^3/uL (0-0); METAMYELOCYTES% (MANUAL) 1 % (0-1); MONOS#(MANUAL) 1.17 x10^3/uL (0.3-2.7); MONOS% (MANUAL) 9 % (2-9); SEG#(MANUAL) 10.01 x10^3/uL (1.8-6.8); SEGS% (MANUAL) 77 % (42-75)
[2019-09-01 04:47] LABS: <PLATELET ESTIMATE> ADEQUATE; <PLT MORPHOLOGY> NORMAL PLT MORPH; ANISOCYTOSIS 1+; PMNS WITH VACUOLES 1+; TOXIC GRAN 1+
[2019-09-01] MEDS: PIPERACILLIN/TAZO/PMX 3.375GM 50 ML IV SCH ×3 (04:49→19:17)
[2019-09-01] MEDS: ALBUTEROL SULFATE 2.5 MG/3 ML NPPB SCH ×4 (07:00→18:59)
[2019-09-01] MEDS ORDERED: MAGNESIUM SULFATE PMX 4GM/100M 100 ML IV ONE (07:30)
[2019-09-01] MEDS: BUDESONIDE 0.5 MG/2 ML INHA NPPB SCH ×2 (08:55→18:59)
[2019-09-01] MEDS: FAMOTIDINE 20 MG/2 ML IVPush SCH ×2 (10:03→20:07)
[2019-09-01] MEDS: SERTRALINE 100MG TABLET PO SCH (10:05)
[2019-09-01] MEDS: CARVEDILOL 12.5 MG TABLET PO SCH ×2 (10:05→19:17)
[2019-09-01] MEDS: LISINOPRIL 10 MG TABLET PO SCH (10:05)
[2019-09-01] MEDS: CHOLESTYRAMINE LIGHT 4GM PACKET PO SCH ×2 (10:05→20:07)
[2019-09-01] MEDS: FONDAPARINUX 2.5 MG/0.5 ML SQ SCH (10:13)
[2019-09-01] MEDS: methylPREDNISolone SOD SUCC 125 MG/2 ML IVPush SCH ×2 (10:14→19:17)
[2019-09-01] MEDS: THIAMINE 200 MG in SODIUM CHLORIDE 0.9% 50 ML IV SCH ×2 (10:15→20:07)
[2019-09-01] MEDS ORDERED: hydrALAzine 20 MG/ML, 1ML IV PRN (23:00)
[2019-09-02] MEDS: PIPERACILLIN/TAZO/PMX 3.375GM 50 ML IV SCH ×5 (00:04→22:28)
[2019-09-02] MEDS: CARVEDILOL 12.5 MG TABLET PO SCH ×2 (05:04→20:58)
[2019-09-02 05:18] LABS: BASOPHILS # (AUTO) 0.02 x10^3/uL (0-0.1); BASOPHILS % (AUTO) 0 % (0-1); EOSINOPHILS # (AUTO) 0.14 x10^3/uL (0-0.4); EOSINOPHILS % (AUTO) 1 % (1-7); LYMPHOCYTES # (AUTO) 1.22 x10^3/uL (1-3.4); LYMPHOCYTES % (AUTO) 9 % (22-44); MD NO; MEAN CORPUSCULAR HEMOGLOBIN 32.4 pg (27.5-34.5); MEAN CORPUSCULAR HGB CONC 32.3 g/dL (33.2-36.2); MEAN CORPUSCULAR VOLUME 100.3 fL (81-97); MEAN PLATELET VOLUME 8.5 fL (7.4-10.4); MONOCYTES # (AUTO) 0.53 x10^3/uL (0.2-0.8); MONOCYTES % (AUTO) 4 % (2-9); NEUTROPHILS % (AUTO) 86 % (42-75); PLATELET COUNT 344 x10^3/uL (130-400); RED BLOOD COUNT 3.58 x10^6/uL (4.38-5.82); RED CELL DISTRIBUTION WIDTH 16.5 % (9.4-14.8)
[2019-09-02 05:33] LABS: ANION GAP 5 mmol/L (5-15); CALCIUM 9.3 mg/dL (8.5-10.1); CHLORIDE 105 mmol/L (98-107)
[2019-09-02 05:38] LABS: ALANINE AMINOTRANSFERASE 35 U/L (12-78); ALBUMIN 1.9 g/dL (3.4-5.0); ALKALINE PHOSPHATASE 66 U/L (45-117); BILIRUBIN,TOTAL 0.4 mg/dL (0.2-1.0); CREATININE 0.74 mg/dL (0.7-1.3); TOTAL PROTEIN 6.3 g/dL (6.4-8.2)
[2019-09-02] MEDS: ALBUTEROL SULFATE 2.5 MG/3 ML NPPB SCH ×4 (07:00→20:00)
[2019-09-02] MEDS: BUDESONIDE 0.5 MG/2 ML INHA NPPB SCH ×2 (07:27→20:27)
[2019-09-02] MEDS ORDERED: MAGNESIUM SULFATE PMX 2GM/50ML 50 ML IV ONE (07:30)
[2019-09-02] MEDS: LORazepam 2 MG/ML, 1ML IVPush PRN (08:52)
[2019-09-02] MEDS: methylPREDNISolone SOD SUCC 125 MG/2 ML IVPush SCH (08:55)
[2019-09-02] MEDS: SERTRALINE 100MG TABLET PO SCH (08:57)
[2019-09-02] MEDS: FAMOTIDINE 20 MG/2 ML IVPush SCH (08:57)
[2019-09-02] MEDS: LISINOPRIL 10 MG TABLET PO SCH (08:57)
[2019-09-02] MEDS: FONDAPARINUX 2.5 MG/0.5 ML SQ SCH (08:58)
[2019-09-02] MEDS: CHOLESTYRAMINE LIGHT 4GM PACKET PO SCH ×2 (09:00→22:28)
[2019-09-02] MEDS: THIAMINE 200 MG in SODIUM CHLORIDE 0.9% 50 ML IV SCH (09:00)
[2019-09-02 17:36] VITALS: BP 106/62
[2019-09-02 19:59] VITALS: BP 146/92
[2019-09-03 00:57] VITALS: BP 156/96
[2019-09-03] MEDS: PIPERACILLIN/TAZO/PMX 3.375GM 50 ML IV SCH ×4 (04:25→22:13)
[2019-09-03 05:15] LABS: ANION GAP 4 mmol/L (5-15); BASOPHILS # (AUTO) 0.02 x10^3/uL (0-0.1); BASOPHILS % (AUTO) 0 % (0-1); CALCIUM 8.8 mg/dL (8.5-10.1); CHLORIDE 103 mmol/L (98-107); EOSINOPHILS # (AUTO) 0.21 x10^3/uL (0-0.4); EOSINOPHILS % (AUTO) 2 % (1-7); LYMPHOCYTES # (AUTO) 1.52 x10^3/uL (1-3.4); LYMPHOCYTES % (AUTO) 15 % (22-44); MD NO; MEAN CORPUSCULAR HEMOGLOBIN 32.1 pg (27.5-34.5); MEAN CORPUSCULAR HGB CONC 32.1 g/dL (33.2-36.2); MEAN CORPUSCULAR VOLUME 100.2 fL (81-97); MEAN PLATELET VOLUME 7.9 fL (7.4-10.4); MONOCYTES # (AUTO) 0.59 x10^3/uL (0.2-0.8); MONOCYTES % (AUTO) 6 % (2-9); NEUTROPHILS # (AUTO) 7.73 x10^3/uL (1.8-6.8); NEUTROPHILS % (AUTO) 77 % (42-75); PLATELET COUNT 287 x10^3/uL (130-400); RED BLOOD COUNT 3.32 x10^6/uL (4.38-5.82); RED CELL DISTRIBUTION WIDTH 16.3 % (9.4-14.8)
[2019-09-03 05:18] LABS: ALANINE AMINOTRANSFERASE 33 U/L (12-78); ALKALINE PHOSPHATASE 57 U/L (45-117); BILIRUBIN,TOTAL 0.5 mg/dL (0.2-1.0); CREATININE 0.79 mg/dL (0.7-1.3); TOTAL PROTEIN 6.1 g/dL (6.4-8.2)
[2019-09-03] MEDS: CARVEDILOL 12.5 MG TABLET PO SCH ×2 (05:50→17:39)
[2019-09-03 07:10] VITALS: BP 128/76
[2019-09-03] MEDS: ALBUTEROL SULFATE 2.5 MG/3 ML NPPB SCH ×5 (07:25→19:46)
[2019-09-03] MEDS: BUDESONIDE 0.5 MG/2 ML INHA NPPB SCH ×2 (07:25→19:46)
[2019-09-03] MEDS ORDERED: MAGNESIUM SULFATE PMX 4GM/100M 100 ML IV ONE (07:30)
[2019-09-03] MEDS: SERTRALINE 100MG TABLET PO SCH (08:48)
[2019-09-03] MEDS: LISINOPRIL 10 MG TABLET PO SCH (08:48)
[2019-09-03] MEDS: CHOLESTYRAMINE LIGHT 4GM PACKET PO SCH ×2 (08:48→20:06)
[2019-09-03] MEDS: FONDAPARINUX 2.5 MG/0.5 ML SQ SCH (08:49)
--- NOTE | 2019-09-03 13:29 | NUR ---
FOUR CORNER STAYER MACHINE OPERATOR REC NPO PENDING MBSS RESULTS. OKAY FOR 5-7 ICE CHIPS PER HOUR AND MEDS FLOATED WHOLE IN PUREE swallow sign posted in patient's room Addendum: 09/03/19 at 1330 by Tomasa MELVIN Amended: Links added.
[2019-09-03 14:00] VITALS: BP 121/89
[2019-09-03 17:38] VITALS: BP 139/82
[2019-09-03 19:43] VITALS: BP 118/79
[2019-09-04 02:02] VITALS: BP 154/88
[2019-09-04] MEDS: PIPERACILLIN/TAZO/PMX 3.375GM 50 ML IV SCH ×2 (04:34→11:17)
[2019-09-04 05:13] LABS: BASOPHILS # (AUTO) 0.06 x10^3/uL (0-0.1); BASOPHILS % (AUTO) 1 % (0-1); EOSINOPHILS # (AUTO) 0.01 x10^3/uL (0-0.4); EOSINOPHILS % (AUTO) 0 % (1-7); LYMPHOCYTES # (AUTO) 1.54 x10^3/uL (1-3.4); LYMPHOCYTES % (AUTO) 12 % (22-44); MD NO; MEAN CORPUSCULAR HEMOGLOBIN 31.8 pg (27.5-34.5); MEAN CORPUSCULAR HGB CONC 31.9 g/dL (33.2-36.2); MEAN CORPUSCULAR VOLUME 99.8 fL (81-97); MEAN PLATELET VOLUME 7.5 fL (7.4-10.4); MONOCYTES # (AUTO) 0.58 x10^3/uL (0.2-0.8); MONOCYTES % (AUTO) 5 % (2-9); NEUTROPHILS # (AUTO) 10.29 x10^3/uL (1.8-6.8); NEUTROPHILS % (AUTO) 83 % (42-75); PLATELET COUNT 318 x10^3/uL (130-400); RED BLOOD COUNT 3.43 x10^6/uL (4.38-5.82); RED CELL DISTRIBUTION WIDTH 16.3 % (9.4-14.8)
[2019-09-04 05:28] LABS: ALBUMIN 2.2 g/dL (3.4-5.0); ANION GAP 7 mmol/L (5-15); CALCIUM 8.6 mg/dL (8.5-10.1); CHLORIDE 101 mmol/L (98-107)
[2019-09-04 05:33] LABS: ALANINE AMINOTRANSFERASE 35 U/L (12-78); ALKALINE PHOSPHATASE 69 U/L (45-117); BILIRUBIN,TOTAL 0.5 mg/dL (0.2-1.0); CREATININE 0.91 mg/dL (0.7-1.3); TOTAL PROTEIN 6.4 g/dL (6.4-8.2); TRIGLYCERIDES 141 mg/dL (50-200)
[2019-09-04] MEDS: CARVEDILOL 12.5 MG TABLET PO SCH ×2 (06:11→17:59)
[2019-09-04 07:57] VITALS: BP 149/90
[2019-09-04] MEDS: SERTRALINE 100MG TABLET PO SCH (08:28)
[2019-09-04] MEDS: FONDAPARINUX 2.5 MG/0.5 ML SQ SCH (08:28)
[2019-09-04] MEDS: CHOLESTYRAMINE LIGHT 4GM PACKET PO SCH (08:28)
[2019-09-04] MEDS: LISINOPRIL 10 MG TABLET PO SCH (08:28)
--- NOTE | 2019-09-04 08:29 | NUR ---
ELECTRIC BRAIN WAVE EQUIPMENT MECHANIC REC PUREE/NTL with adherence to the following strategies: Upright at 90* for PO Small bites/sips Slow rate No straws Meds floated in puree Monitoring meals Addendum: 09/04/19 at 0829 by Tomasa MELVIN Amended: Links added.
[2019-09-04] MEDS: BUDESONIDE 0.5 MG/2 ML INHA NPPB SCH ×2 (09:35→20:30)
[2019-09-04] MEDS: ALBUTEROL SULFATE 2.5 MG/3 ML NPPB SCH ×3 (09:35→20:30)
[2019-09-04 13:19] VITALS: BP 134/87
[2019-09-04 19:21] VITALS: BP 144/83
[2019-09-05 01:41] VITALS: BP 151/92
[2019-09-05 05:26] LABS: BASOPHILS # (AUTO) 0.03 x10^3/uL (0-0.1); BASOPHILS % (AUTO) 0 % (0-1); EOSINOPHILS # (AUTO) 0.12 x10^3/uL (0-0.4); EOSINOPHILS % (AUTO) 1 % (1-7); LYMPHOCYTES # (AUTO) 1.82 x10^3/uL (1-3.4); LYMPHOCYTES % (AUTO) 17 % (22-44); MD NO; MEAN CORPUSCULAR HEMOGLOBIN 32.3 pg (27.5-34.5); MEAN CORPUSCULAR HGB CONC 32.6 g/dL (33.2-36.2); MEAN CORPUSCULAR VOLUME 99.2 fL (81-97); MEAN PLATELET VOLUME 7.6 fL (7.4-10.4); MONOCYTES # (AUTO) 0.81 x10^3/uL (0.2-0.8); MONOCYTES % (AUTO) 8 % (2-9); NEUTROPHILS # (AUTO) 7.96 x10^3/uL (1.8-6.8); NEUTROPHILS % (AUTO) 74 % (42-75); PLATELET COUNT 309 x10^3/uL (130-400); RED BLOOD COUNT 3.49 x10^6/uL (4.38-5.82); RED CELL DISTRIBUTION WIDTH 15.9 % (9.4-14.8)
[2019-09-05 05:49] LABS: CHLORIDE 107 mmol/L (98-107)
[2019-09-05] MEDS: CARVEDILOL 12.5 MG TABLET PO SCH ×2 (06:00→07:54)
[2019-09-05 06:02] LABS: ALANINE AMINOTRANSFERASE 39 U/L (12-78); ALBUMIN 2.4 g/dL (3.4-5.0); ALKALINE PHOSPHATASE 78 U/L (45-117); ANION GAP 8 mmol/L (5-15); BILIRUBIN,TOTAL 0.5 mg/dL (0.2-1.0); CALCIUM 8.6 mg/dL (8.5-10.1); CREATININE 0.84 mg/dL (0.7-1.3); TOTAL PROTEIN 6.8 g/dL (6.4-8.2)
[2019-09-05 07:40] VITALS: BP 148/78
[2019-09-05] MEDS: SERTRALINE 100MG TABLET PO SCH (07:54)
[2019-09-05] MEDS: FONDAPARINUX 2.5 MG/0.5 ML SQ SCH (07:54)
[2019-09-05] MEDS: LISINOPRIL 10 MG TABLET PO SCH (07:54)
[2019-09-05] MEDS: BUDESONIDE 0.5 MG/2 ML INHA NPPB SCH (08:15)
[2019-09-05] MEDS: ALBUTEROL SULFATE 2.5 MG/3 ML NPPB SCH ×2 (08:15→14:57)
[2019-09-05 13:13] VITALS: BP 127/86
== END 2019-09-05 15:50 | disposition left against medical advice (07) | DRG 870 ==
LOC: ED 23:15 → EDIP 08-26 00:21 → CCU 08-26 01:46 → 3N 09-02 18:19
PROVIDERS: ADMIT Family Medicine; ATTEND Internal Medicine
PROC: 0BH18EZ Insertion of Endotracheal Airway into Trachea, Via Natural or Artificial Opening Endoscopic (ICD-10-PCS; principal; 2019-08-26)
PROC: 02HV33Z Insertion of Infusion Device into Superior Vena Cava, Percutaneous Approach (ICD-10-PCS; 2019-08-26)
PROC: 5A1955Z Respiratory Ventilation, Greater than 96 Consecutive Hours (ICD-10-PCS; 2019-08-26)
PROC: B548ZZA Ultrasonography of Superior Vena Cava, Guidance (ICD-10-PCS; 2019-08-26)
PROC: 0B9J7ZX Drainage of Left Lower Lung Lobe, Via Natural or Artificial Opening, Diagnostic (ICD-10-PCS; 2019-08-26)
PROC: 0B9G7ZX Drainage of Left Upper Lung Lobe, Via Natural or Artificial Opening, Diagnostic (ICD-10-PCS; 2019-08-26)
PROC: 0B9F7ZX Drainage of Right Lower Lung Lobe, Via Natural or Artificial Opening, Diagnostic (ICD-10-PCS; 2019-08-26)
PROC: 0B9J7ZX Drainage of Left Lower Lung Lobe, Via Natural or Artificial Opening, Diagnostic (ICD-10-PCS; 2019-08-28)
DX: A41.9 Sepsis, unspecified organism (principal); E43 Unspecified severe protein-calorie malnutrition; J15.9 Unspecified bacterial pneumonia; J96.21 Acute and chronic respiratory failure with hypoxia; R65.21 Severe sepsis with septic shock; N17.0 Acute kidney failure with tubular necrosis; E87.1 Hypo-osmolality and hyponatremia; E87.2 Acidosis; F10.239 Alcohol dependence with withdrawal, unspecified; J44.1 Chronic obstructive pulmonary disease with (acute) exacerbation; J44.0 Chronic obstructive pulmonary disease with (acute) lower respiratory infection; I50.32 Chronic diastolic (congestive) heart failure; I13.0 Hypertensive heart and chronic kidney disease with heart failure and stage 1 through stage 4 chronic kidney disease, or unspecified chronic kidney disease; K56.7 Ileus, unspecified; Z99.11 Dependence on respirator [ventilator] status; D53.9 Nutritional anemia, unspecified; E11.22 Type 2 diabetes mellitus with diabetic chronic kidney disease; E86.0 Dehydration; E87.6 Hypokalemia; F17.210 Nicotine dependence, cigarettes, uncomplicated; F32.9 Major depressive disorder, single episode, unspecified; F41.9 Anxiety disorder, unspecified; N18.9 Chronic kidney disease, unspecified; E88.09 Other disorders of plasma-protein metabolism, not elsewhere classified; F51.04 Psychophysiologic insomnia; G89.29 Other chronic pain; E11.42 Type 2 diabetes mellitus with diabetic polyneuropathy; E83.42 Hypomagnesemia; M10.9 Gout, unspecified; Z80.0 Family history of malignant neoplasm of digestive organs; Z82.5 Family history of asthma and other chronic lower respiratory diseases; I25.2 Old myocardial infarction
CPT/HCPCS: 31624; 36415; 36573; 36600; 71045; 74018; 80048; 80053; 80307; 81003; 82040; 82436; 82550; 82570; 82607; 82803; 83605; 83690; 83735; 83880; 84100; 84133; 84145; 84300; 84443; 84478; 84484; 85025; 87015; 87040; 87070; 87081; 87102; 87116; 87205; 87206; 87324; 87400; 88108; 88112; 88305; 93005; 93306; 94002; 94003; 94150; 94640; 94668; 96361; 96365; 96372; G0378; J1644; J2020; J2250; J2543; J2704; J3360; J3370; J3411; J3475; J3480; J7042; J7613; J7620; J7626; C1751; J0360; J1652; J1940; J2060; J2270; J2930; J3490; J7030; J7040; J7050

== ENCOUNTER 2019-09-30 08:11 | Inpatient (IN) | payer MEDICARE, MEDICAID ==
[~2019-09-30] VITALS: Ht 170.2 cm; Wt 65.7 kg
[~2019-09-30 08:11] MED LIST changes: +ALBU18HF INH; +CARV12.52 PO; +CETI10TA18 PO; +CYCL5TAB PO; +DICL100G19 TP; +FLUT16SP24 NS; +GABA600T7 PO; +HYDR-826 PO; +LISI10TA2 PO; +MULT-797 PO; +SERT-238 PO; +THIA100T27 PO; +TRAZ-137 PO
[2019-09-30] MEDS ORDERED: ACETAMINOPHEN 325 MG TABLET PO ONE (08:30)
[2019-09-30] MEDS ORDERED: methylPREDNISolone SOD SUCC 125 MG/2 ML IV ONE (08:30)
[2019-09-30] MEDS ORDERED: SODIUM CHLORIDE FLUSH 10ML SYR IVF ONE (08:30)
[2019-09-30] MEDS ORDERED: ALBUTEROL/IPRATROPIUM 2.5MG/0.5MG, 3 ML NPPB ONE (08:30)
[2019-09-30] MEDS ORDERED: BENZONATATE 100 MG CAPSULE PO ONE (08:30)
[2019-09-30] MEDS ORDERED: ALBUTEROL/IPRATROPIUM 2.5MG/0.5MG, 3 ML ONE (08:49)
[2019-09-30] MEDS ORDERED: methylPREDNISolone SOD SUCC 125 MG/2 ML ONE (08:53)
[2019-09-30] MEDS ORDERED: BENZONATATE 100 MG CAPSULE ONE (08:55)
[2019-09-30] MEDS ORDERED: ACETAMINOPHEN 500 MG TABLET ONE (08:55)
[2019-09-30] MEDS ORDERED: CEFTRIAXONE PMX 1GM/50ML 50 ML ONE (08:55)
[2019-09-30] MEDS ORDERED: DOXYCYCLINE 100 MG in DEXTROSE 5% 250 ML IV ONE (09:00)
[2019-09-30] MEDS: SODIUM CHLORIDE 0.9% 1,000 ML IV ONE ×2 (09:11→13:00)
[2019-09-30 09:12] LABS: MD YES; MEAN CORPUSCULAR HEMOGLOBIN 32.1 pg (27.5-34.5); MEAN CORPUSCULAR HGB CONC 31.8 g/dL (33.2-36.2); MEAN CORPUSCULAR VOLUME 101.1 fL (81-97); MEAN PLATELET VOLUME 8.5 fL (7.4-10.4); PLATELET COUNT 171 x10^3/uL (130-400); RED BLOOD COUNT 3.33 x10^6/uL (4.38-5.82); RED CELL DISTRIBUTION WIDTH 18.9 % (9.4-14.8)
--- NOTE | 2019-09-30 09:13 | NUR ---
PATIENT MEDICATED PER EMAR. IVF AND ABX STARTED.
[2019-09-30 09:15] LABS: ALANINE AMINOTRANSFERASE 14 U/L (12-78); ANION GAP 8 mmol/L (5-15); CALCIUM 7.3 mg/dL (8.5-10.1); CHLORIDE 94 mmol/L (98-107); CREATININE 1.08 mg/dL (0.7-1.3)
[2019-09-30 09:23] LABS: BAND#(MANUAL) 0.39 x10^3/uL; BANDS%(MANUAL) 1 % (0-7); LYMPH#(MANUAL) 0.79 x10^3/uL (1-3.4); LYMPHS% (MANUAL) 2 % (22-44); MONOS#(MANUAL) 1.18 x10^3/uL (0.3-2.7); MONOS% (MANUAL) 3 % (2-9); SEG#(MANUAL) 37.04 x10^3/uL (1.8-6.8); SEGS% (MANUAL) 94 % (42-75)
[2019-09-30 09:24] LABS: ANISOCYTOSIS 1+; HYPOCHROMIA 1+; POLYCHROMASIA 1+
[2019-09-30 09:25] LABS: <PLATELET ESTIMATE> ADEQUATE; <PLT MORPHOLOGY> NORMAL PLT MORPH
[2019-09-30 09:27] LABS: ALKALINE PHOSPHATASE 85 U/L (45-117)
[2019-09-30 09:28] LABS: TOTAL PROTEIN 6.4 g/dL (6.4-8.2); TROPONIN I 0.035 ng/mL (0.000-0.045)
[2019-09-30] MEDS ORDERED: POTASSIUM CHLORIDE 20 MEQ TAB.ER.PRT PO ONE (09:30)
[2019-09-30] MEDS ORDERED: CEFTRIAXONE PMX 1GM/50ML 50 ML IVPB ONE (09:30)
[2019-09-30] MEDS ORDERED: SODIUM CHLORIDE 0.9%, 500ML IVBOLUS ONE (09:30)
[2019-09-30 09:37] LABS: RAPID INFLUENZA A Negative (Negative); RAPID INFLUENZA B Negative (Negative)
[2019-09-30] MEDS ORDERED: NS + 40MEQ KCL 1,000 ML IV ONE (09:45)
[2019-09-30] MEDS ORDERED: POTASSIUM CHLORIDE 20 MEQ TAB.ER.PRT ONE (09:45)
--- NOTE | 2019-09-30 09:53 | NUR ---
PATIENT MEDICATED PER EMAR. 2ND PIV STARTED. PATIENT IS RESTING ON GURNEY, DENIES FURTHER NEEDS AT THIS TIME.
[2019-09-30] MEDS: NS + 40MEQ KCL 1,000 ML IV SCH ×2 (10:00→18:04)
[2019-09-30] MEDS ORDERED: MAGNESIUM SULFATE PMX 4GM/100M 100 ML IV ONE (10:00)
--- NOTE | 2019-09-30 10:31 | NUR ---
LATE ENTRY: THIS IS A 63 YO M BIB [facility] FROM HOME WITH C/O SOB, DYSPNEA, PRODUCTIVE COUGH X1 WEEK AND LEFT SIDED CHEST PAIN. PATIENT STATES THAT HE WAS RECENTLY ADMITTED FOR PNA BUT LEFT AMA BECAUSE HE WAS FEELING BETTER AFTER RECEIVING ABX. HIS RESPIRATIONS ARE EVEN AND UNLABORED. PRODUCTIVE COUGH NOTED. PATIENT IS IN NO ACUTE DISTRESS. HE IS RESTING ON GURNEY WITH CALL LIGHT IN REACH. DENIES FURTHER NEEDS AT THIS TIME.
--- NOTE | 2019-09-30 10:43 | NUR ---
VITALS DONE, PATIENT RESTING ON GURNEY WATCHING TV AND CONVERSATING WITH STAFF. DENIES FURTHER NEEDS AT THIS TIME.
--- NOTE | 2019-09-30 11:40 | NUR ---
CAME INTO ROOM TO CHECK ON PATIENT, LARGE SPILL OF BLOOD ON FLOOR AND GOWN COVERED IN BLOOD. IV ON FLOOR. PATIENT STATES HE DIDNT NOTICE THAT IT HAD FALLEN OUT.
--- NOTE | 2019-09-30 12:36 | NUR ---
LUNCH TRAY DELIVERED.
[2019-09-30] MEDS ORDERED: ONDANSETRON 2MG/ML, 2ML IVPush PRN (13:00)
[2019-09-30] MEDS ORDERED: VANCOMYCIN PER PHARMACY MC PRN (13:00)
[2019-09-30] MEDS ORDERED: POLYETHYLENE GLYCOL 17 GM PACKET PO PRN (13:00)
[2019-09-30] MEDS ORDERED: BISACODYL 10 MG SUPP PR PRN (13:00)
[2019-09-30] MEDS ORDERED: LABETALOL 5MG/ML, 20ML IVPush PRN (13:00)
[2019-09-30] MEDS ORDERED: ACETAMINOPHEN 325 MG TABLET PO PRN (13:00)
--- NOTE | 2019-09-30 13:03 | NUR ---
PATIENT TRANSFERRED TO CCU. MAG AND K STILL INFUSING AT TIME OF TRANSFER.
[2019-09-30] MEDS ORDERED: PHARMACOKINETIC MONITORING MC PRN (13:30)
[2019-09-30] MEDS: PIPERACILLIN/TAZO/PMX 3.375GM 50 ML IV SCH ×2 (14:21→18:04)
[2019-09-30] MEDS: VANCOMYCIN 1,200 MG in SODIUM CHLORIDE 0.9% 250 ML IV SCH (14:49)
[2019-09-30] MEDS: ALBUTEROL SULFATE 2.5 MG/3 ML NPPB SCH ×3 (15:08→21:20)
[2019-09-30 16:29] VITALS: BP 143/119
[2019-09-30] MEDS: BUDESONIDE 0.5 MG/2 ML INHA INH SCH (21:20)
[2019-10-01] MEDS: PIPERACILLIN/TAZO/PMX 3.375GM 50 ML IV SCH ×4 (00:07→17:29)
[2019-10-01] MEDS: ALBUTEROL SULFATE 2.5 MG/3 ML NPPB SCH ×6 (02:12→23:30)
[2019-10-01 04:29] LABS: MEAN CORPUSCULAR HEMOGLOBIN 31.8 pg (27.5-34.5); MEAN CORPUSCULAR HGB CONC 31.1 g/dL (33.2-36.2); MEAN CORPUSCULAR VOLUME 102.1 fL (81-97); RED BLOOD COUNT 2.94 x10^6/uL (4.38-5.82); RED CELL DISTRIBUTION WIDTH 18.7 % (9.4-14.8)
[2019-10-01 04:36] LABS: ALBUMIN 1.5 g/dL (3.4-5.0); ANION GAP 4 mmol/L (5-15); CALCIUM 7.2 mg/dL (8.5-10.1); CHLORIDE 109 mmol/L (98-107)
[2019-10-01 04:39] LABS: ALANINE AMINOTRANSFERASE 12 U/L (12-78); ALKALINE PHOSPHATASE 75 U/L (45-117); BILIRUBIN,TOTAL 0.4 mg/dL (0.2-1.0); CREATININE 0.95 mg/dL (0.7-1.3); TOTAL PROTEIN 5.5 g/dL (6.4-8.2)
[2019-10-01 05:20] LABS: MEAN PLATELET VOLUME 9.2 fL (7.4-10.4); PLATELET COUNT 121 x10^3/uL (130-400)
[2019-10-01 05:23] LABS: BASOPHILS % (AUTO) 0 % (0-1); EOSINOPHILS % (AUTO) 0 % (1-7); LYMPHOCYTES # (AUTO) 0.38 x10^3/uL (1-3.4); LYMPHOCYTES % (AUTO) 1 % (22-44); MD SCAN; MONOCYTES # (AUTO) 0.79 x10^3/uL (0.2-0.8); MONOCYTES % (AUTO) 3 % (2-9); NEUTROPHILS # (AUTO) 30.86 x10^3/uL (1.8-6.8); NEUTROPHILS % (AUTO) 96 % (42-75)
[2019-10-01] MEDS: BUDESONIDE 0.5 MG/2 ML INHA INH SCH ×2 (07:00→19:20)
[2019-10-01] MEDS: FONDAPARINUX 2.5 MG/0.5 ML SQ SCH (07:20)
[2019-10-01] MEDS: SENNA/DOCUSATE TABLET PO SCH ×2 (07:20→20:13)
[2019-10-01] MEDS: VANCOMYCIN 1,200 MG in SODIUM CHLORIDE 0.9% 250 ML IV SCH (07:20)
[2019-10-01] MEDS ORDERED: MAGNESIUM SULFATE PMX 4GM/100M 100 ML IV ONE (07:30)
[2019-10-01 10:53] VITALS: BP 119/76
[2019-10-01] MEDS ORDERED: NICOTINE 21 MG/24 HR PATCH.TD24 ONE (11:55)
[2019-10-01] MEDS: NICOTINE 21 MG/24 HR PATCH.TD24 TD SCH (12:19)
[2019-10-01 13:54] VITALS: BP 109/74
[2019-10-01 18:28] VITALS: BP 102/63
[2019-10-01] MEDS: OXYcodone IR 5MG TABLET PO PRN (20:12)
[2019-10-02] MEDS: TRAZODONE 100MG TABLET PO PRN (00:09)
[2019-10-02] MEDS: PIPERACILLIN/TAZO/PMX 3.375GM 50 ML IV SCH ×4 (00:09→17:35)
[2019-10-02 00:15] VITALS: BP 141/86
[2019-10-02] MEDS: VANCOMYCIN 1,200 MG in SODIUM CHLORIDE 0.9% 250 ML IV SCH ×2 (02:11→20:48)
[2019-10-02] MEDS: ALBUTEROL SULFATE 2.5 MG/3 ML NPPB SCH ×7 (03:00→20:00)
[2019-10-02 06:48] VITALS: BP 135/86
[2019-10-02] MEDS: BUDESONIDE 0.5 MG/2 ML INHA INH SCH ×2 (06:58→18:17)
[2019-10-02] MEDS: NICOTINE 21 MG/24 HR PATCH.TD24 TD SCH (08:00)
[2019-10-02] MEDS: FONDAPARINUX 2.5 MG/0.5 ML SQ SCH (08:01)
[2019-10-02] MEDS: ALLOPURINOL 100 MG TABLET PO SCH (12:57)
[2019-10-02 13:23] VITALS: BP 136/79
[2019-10-02 18:58] VITALS: BP 116/78
[2019-10-03] MEDS: PIPERACILLIN/TAZO/PMX 3.375GM 50 ML IV SCH ×4 (00:08→19:38)
[2019-10-03 01:21] VITALS: BP 130/75
[2019-10-03 06:25] VITALS: BP 132/74
[2019-10-03] MEDS: ALBUTEROL SULFATE 2.5 MG/3 ML NPPB SCH ×5 (06:45→20:00)
[2019-10-03] MEDS: BUDESONIDE 0.5 MG/2 ML INHA INH SCH ×3 (06:45→21:00)
[2019-10-03 07:27] LABS: ALANINE AMINOTRANSFERASE 10 U/L (12-78); ALBUMIN 1.8 g/dL (3.4-5.0); ANION GAP 4 mmol/L (5-15); CALCIUM 7.9 mg/dL (8.5-10.1); CHLORIDE 107 mmol/L (98-107)
[2019-10-03 07:30] LABS: ALKALINE PHOSPHATASE 58 U/L (45-117); BILIRUBIN,TOTAL 0.6 mg/dL (0.2-1.0); TOTAL PROTEIN 5.5 g/dL (6.4-8.2)
[2019-10-03 08:06] LABS: MEAN CORPUSCULAR HEMOGLOBIN 32.1 pg (27.5-34.5); MEAN CORPUSCULAR HGB CONC 31.7 g/dL (33.2-36.2); MEAN CORPUSCULAR VOLUME 101.5 fL (81-97); PLATELET COUNT 201 x10^3/uL (130-400); RED BLOOD COUNT 2.71 x10^6/uL (4.38-5.82); RED CELL DISTRIBUTION WIDTH 18.9 % (9.4-14.8)
[2019-10-03 08:07] LABS: MD YES
[2019-10-03 08:09] LABS: EOS#(MANUAL) 0.07 x10^3/uL (0.0-0.4); EOS% (MANUAL) 1 % (1-7); LYMPHS% (MANUAL) 10 % (22-44); MONOS#(MANUAL) 0.91 x10^3/uL (0.3-2.7); MONOS% (MANUAL) 13 % (2-9); SEG#(MANUAL) 5.32 x10^3/uL (1.8-6.8); SEGS% (MANUAL) 76 % (42-75)
[2019-10-03 08:10] LABS: <PLATELET ESTIMATE> ADEQUATE; <PLT MORPHOLOGY> NORMAL PLT MORPH; ANISOCYTOSIS 1+; HYPOCHROMIA 1+; POLYCHROMASIA 1+
[2019-10-03] MEDS: SENNA/DOCUSATE TABLET PO SCH (08:50)
[2019-10-03] MEDS: ALLOPURINOL 100 MG TABLET PO SCH (08:51)
[2019-10-03] MEDS: FONDAPARINUX 2.5 MG/0.5 ML SQ SCH (08:54)
[2019-10-03] MEDS: NICOTINE 21 MG/24 HR PATCH.TD24 TD SCH (08:56)
[2019-10-03 12:12] VITALS: BP 145/80
[2019-10-03 19:20] VITALS: BP 146/89
[2019-10-03] MEDS: TRAZODONE 100MG TABLET PO PRN (20:51)
[2019-10-03] MEDS: MAGNESIUM OXIDE 400 MG TABLET PO SCH (20:51)
[2019-10-03] MEDS: OXYcodone IR 5MG TABLET PO PRN (20:52)
[2019-10-04] MEDS: PIPERACILLIN/TAZO/PMX 3.375GM 50 ML IV SCH ×4 (01:45→20:04)
[2019-10-04 02:49] VITALS: BP 125/73
[2019-10-04 05:12] LABS: BASOPHILS # (AUTO) 0.02 x10^3/uL (0-0.1); BASOPHILS % (AUTO) 0 % (0-1); EOSINOPHILS # (AUTO) 0.12 x10^3/uL (0-0.4); EOSINOPHILS % (AUTO) 2 % (1-7); LYMPHOCYTES # (AUTO) 1.06 x10^3/uL (1-3.4); LYMPHOCYTES % (AUTO) 16 % (22-44); MD NO; MEAN CORPUSCULAR HEMOGLOBIN 32.4 pg (27.5-34.5); MEAN CORPUSCULAR HGB CONC 31.6 g/dL (33.2-36.2); MEAN CORPUSCULAR VOLUME 102.6 fL (81-97); MEAN PLATELET VOLUME 7.7 fL (7.4-10.4); MONOCYTES # (AUTO) 0.77 x10^3/uL (0.2-0.8); MONOCYTES % (AUTO) 12 % (2-9); NEUTROPHILS # (AUTO) 4.71 x10^3/uL (1.8-6.8); NEUTROPHILS % (AUTO) 71 % (42-75); PLATELET COUNT 297 x10^3/uL (130-400); RED BLOOD COUNT 2.78 x10^6/uL (4.38-5.82); RED CELL DISTRIBUTION WIDTH 17.9 % (9.4-14.8)
[2019-10-04] MEDS: ALBUTEROL SULFATE 2.5 MG/3 ML NPPB SCH ×2 (07:00→11:00)
[2019-10-04 07:22] VITALS: BP 124/73
[2019-10-04] MEDS: BUDESONIDE 0.5 MG/2 ML INHA INH SCH ×2 (09:00→19:07)
[2019-10-04] MEDS: SENNA/DOCUSATE TABLET PO SCH (09:40)
[2019-10-04] MEDS: ALLOPURINOL 100 MG TABLET PO SCH (09:45)
[2019-10-04] MEDS: NICOTINE 21 MG/24 HR PATCH.TD24 TD SCH (09:46)
[2019-10-04] MEDS: MAGNESIUM OXIDE 400 MG TABLET PO SCH (09:46)
[2019-10-04] MEDS: OXYcodone IR 5MG TABLET PO PRN (10:02)
[2019-10-04] MEDS: FONDAPARINUX 2.5 MG/0.5 ML SQ SCH (10:03)
[2019-10-04] MEDS ORDERED: ALBUTEROL SULFATE 2.5 MG/3 ML NPPB PRN (12:00)
[2019-10-04 15:29] VITALS: BP 124/81
[2019-10-04] MEDS ORDERED: MAGNESIUM SULFATE PMX 2GM/50ML 50 ML IV ONE (16:30)
[2019-10-04] MEDS: methylPREDNISolone SOD SUCC 40 MG/ML IV SCH (17:12)
[2019-10-04 19:21] VITALS: BP 151/86
[2019-10-04] MEDS: TRAZODONE 100MG TABLET PO PRN (20:34)
[2019-10-05] MEDS: methylPREDNISolone SOD SUCC 40 MG/ML IV SCH ×4 (00:08→21:10)
[2019-10-05 00:12] VITALS: BP 133/78
[2019-10-05] MEDS: PIPERACILLIN/TAZO/PMX 3.375GM 50 ML IV SCH ×2 (01:13→08:05)
[2019-10-05 05:45] LABS: ALANINE AMINOTRANSFERASE 17 U/L (12-78); ANION GAP 7 mmol/L (5-15); CALCIUM 8.3 mg/dL (8.5-10.1); CHLORIDE 104 mmol/L (98-107)
[2019-10-05 05:48] LABS: BASOPHILS % (AUTO) 0 % (0-1); EOSINOPHILS # (AUTO) 0.03 x10^3/uL (0-0.4); EOSINOPHILS % (AUTO) 1 % (1-7); LYMPHOCYTES # (AUTO) 0.52 x10^3/uL (1-3.4); LYMPHOCYTES % (AUTO) 12 % (22-44); MD NO; MEAN CORPUSCULAR HEMOGLOBIN 32.4 pg (27.5-34.5); MEAN CORPUSCULAR HGB CONC 31.5 g/dL (33.2-36.2); MEAN CORPUSCULAR VOLUME 102.6 fL (81-97); MEAN PLATELET VOLUME 7.7 fL (7.4-10.4); MONOCYTES # (AUTO) 0.03 x10^3/uL (0.2-0.8); MONOCYTES % (AUTO) 1 % (2-9); NEUTROPHILS # (AUTO) 3.79 x10^3/uL (1.8-6.8); NEUTROPHILS % (AUTO) 87 % (42-75); PLATELET COUNT 428 x10^3/uL (130-400); RED CELL DISTRIBUTION WIDTH 18.4 % (9.4-14.8)
[2019-10-05 06:04] VITALS: BP 134/87
[2019-10-05 06:12] LABS: ALKALINE PHOSPHATASE 66 U/L (45-117); BILIRUBIN,TOTAL 0.3 mg/dL (0.2-1.0); CREATININE 1.06 mg/dL (0.7-1.3); TOTAL PROTEIN 6.2 g/dL (6.4-8.2)
[2019-10-05] MEDS: OXYcodone IR 5MG TABLET PO PRN (06:18)
[2019-10-05 07:13] VITALS: BP 121/75
[2019-10-05] MEDS: ALLOPURINOL 100 MG TABLET PO SCH (08:05)
[2019-10-05] MEDS: MAGNESIUM OXIDE 400 MG TABLET PO SCH (08:05)
[2019-10-05] MEDS: FONDAPARINUX 2.5 MG/0.5 ML SQ SCH (08:05)
[2019-10-05] MEDS: SENNA/DOCUSATE TABLET PO SCH (08:06)
[2019-10-05] MEDS: NICOTINE 21 MG/24 HR PATCH.TD24 TD SCH (08:06)
[2019-10-05] MEDS: BUDESONIDE 0.5 MG/2 ML INHA INH SCH ×2 (09:10→19:48)
[2019-10-05 13:36] VITALS: BP 118/67
[2019-10-05 19:10] VITALS: BP 150/97
[2019-10-05] MEDS: CEFDINIR 300 MG CAPSULE PO SCH (21:10)
[2019-10-05] MEDS: TRAZODONE 100MG TABLET PO PRN (21:10)
[2019-10-05] MEDS: DOXYCYCLINE 100MG TABLET PO SCH (21:10)
[2019-10-06 00:07] VITALS: BP 156/90
[2019-10-06] MEDS ORDERED: MAGN400T50 PO (07:36)
[2019-10-06] MEDS ORDERED: PRED10TA PO (07:36)
[2019-10-06 08:20] VITALS: BP 145/84
[2019-10-06] MEDS ORDERED: ALLOPURINOL 100 MG TABLET PO SCH (09:00)
[2019-10-06] MEDS ORDERED: LISINOPRIL 10 MG TABLET PO SCH (09:00)
[2019-10-06] MEDS ORDERED: SERTRALINE 100MG TABLET PO SCH (09:00)
[2019-10-06] MEDS ORDERED: CARVEDILOL 12.5 MG TABLET PO SCH (09:00)
[2019-10-06] MEDS: BUDESONIDE 0.5 MG/2 ML INHA INH SCH ×2 (09:00→09:43)
[2019-10-06] MEDS: SENNA/DOCUSATE TABLET PO SCH (09:15)
[2019-10-06] MEDS: ALLOPURINOL 100 MG TABLET PO SCH (09:16)
[2019-10-06] MEDS: CEFDINIR 300 MG CAPSULE PO SCH (09:16)
[2019-10-06] MEDS: methylPREDNISolone SOD SUCC 40 MG/ML IV SCH ×2 (09:16→14:59)
[2019-10-06] MEDS: MAGNESIUM OXIDE 400 MG TABLET PO SCH (09:16)
[2019-10-06] MEDS: FONDAPARINUX 2.5 MG/0.5 ML SQ SCH (09:17)
[2019-10-06] MEDS: DOXYCYCLINE 100MG TABLET PO SCH (09:17)
[2019-10-06] MEDS: NICOTINE 21 MG/24 HR PATCH.TD24 TD SCH (09:17)
[2019-10-06 15:02] VITALS: BP 150/85
[2019-10-06 15:27] VITALS: BP 153/86
== END 2019-10-06 16:46 | disposition home health service (06) | DRG 871 ==
LOC: ED 08:40 → EDIP 09:33 → CCU 12:52 → 4NE 10-01 10:51 → 3N 10-03 17:50
PROVIDERS: ADMIT Internal Medicine; ATTEND Internal Medicine
DX: A41.89 Other specified sepsis (principal); J96.21 Acute and chronic respiratory failure with hypoxia; J15.9 Unspecified bacterial pneumonia; E43 Unspecified severe protein-calorie malnutrition; E87.1 Hypo-osmolality and hyponatremia; I50.32 Chronic diastolic (congestive) heart failure; J44.0 Chronic obstructive pulmonary disease with (acute) lower respiratory infection; J44.1 Chronic obstructive pulmonary disease with (acute) exacerbation; R65.20 Severe sepsis without septic shock; D53.9 Nutritional anemia, unspecified; E55.9 Vitamin D deficiency, unspecified; E87.6 Hypokalemia; F10.10 Alcohol abuse, uncomplicated; F17.210 Nicotine dependence, cigarettes, uncomplicated; F20.9 Schizophrenia, unspecified; F32.9 Major depressive disorder, single episode, unspecified; E11.40 Type 2 diabetes mellitus with diabetic neuropathy, unspecified; F41.9 Anxiety disorder, unspecified; I11.0 Hypertensive heart disease with heart failure; I27.20 Pulmonary hypertension, unspecified; M10.9 Gout, unspecified; Z80.0 Family history of malignant neoplasm of digestive organs; Z68.22 Body mass index [BMI] 22.0-22.9, adult
CPT/HCPCS: 36415; 36600; 71045; 71046; 80053; 82607; 82803; 83605; 83735; 83880; 84100; 84484; 85025; 87040; 87070; 87081; 87205; 87400; 93005; 94640; 96365; 96367; 96368; 96375; G0378; J0696; J2543; J3370; J7060; J7613; J7620; J7626; J1652; J2920; J2930; J3475; J3480; J7030; J7040; J7050

== ENCOUNTER 2020-01-06 21:06 | Inpatient (IN) | payer MEDICARE, MEDICAID ==
[~2020-01-06] VITALS: Ht 172.7 cm; Wt 72.0 kg
[~2020-01-06 21:06] MED LIST changes: +ETOMIDATE 40 MG/20 ML ONE; +MAGN400T50 PO; +MIDAZOLAM 1 MG/ML, 5ML ONE; +PROPOFOL 10 MG/ML, 100ML IV ONE; +SUCCINYLCHOLINE 20 MG/ML, 10ML ONE; -TRAZ-137 PO; +TRAZ-175 PO
[2020-01-06] MEDS ORDERED: PROPOFOL 100 ML IV PRN (21:17)
--- NOTE | 2020-01-06 21:19 | NUR ---
14 TURKMEN OG TUBE PLACED AND PLACEMENT CONFIRMED WITH [facility]IR[facility] ND AUSCULTATION
[2020-01-06] MEDS ORDERED: methylPREDNISolone SOD SUCC 125 MG/2 ML ONE (21:21)
[2020-01-06] MEDS ORDERED: SODIUM CHLORIDE FLUSH 10ML SYR IVF ONE (21:30)
[2020-01-06] MEDS ORDERED: methylPREDNISolone SOD SUCC 125 MG/2 ML IV ONE (21:30)
[2020-01-06] MEDS ORDERED: MIDAZOLAM 1 MG/ML, 2ML IVPush ONE (21:30)
[2020-01-06] MEDS ORDERED: SUCCINYLCHOLINE 20 MG/ML, 10ML IVPush ONE (21:30)
[2020-01-06] MEDS ORDERED: ALBUTEROL 0.5%, 20ML NPPB SCH (21:30)
[2020-01-06] MEDS ORDERED: ETOMIDATE 20 MG/10 ML IV ONE (21:30)
[2020-01-06] MEDS ORDERED: IPRATROPIUM 0.5 MG/2.5 ML INHA NPPB ONE (21:30)
[2020-01-06] MEDS ORDERED: SODIUM CHLORIDE 0.9% 1,000ML IVBOLUS ONE ×2 (21:30→22:00)
[2020-01-06] MEDS ORDERED: MIDAZOLAM HCL 50 MG in SODIUM CHLORIDE 0.9% 40 ML IV PRN (21:39)
[2020-01-06 21:50] LABS: BASOPHILS # (AUTO) 0.06 x10^3/uL (0-0.1); BASOPHILS % (AUTO) 0 % (0-1); EOSINOPHILS # (AUTO) 0.01 x10^3/uL (0-0.4); EOSINOPHILS % (AUTO) 0 % (1-7); LYMPHOCYTES # (AUTO) 1.09 x10^3/uL (1-3.4); LYMPHOCYTES % (AUTO) 7 % (22-44); MD NO; MEAN CORPUSCULAR HEMOGLOBIN 30.4 pg (27.5-34.5); MEAN CORPUSCULAR HGB CONC 32.1 g/dL (33.2-36.2); MEAN CORPUSCULAR VOLUME 94.7 fL (81-97); MEAN PLATELET VOLUME 6.8 fL (7.4-10.4); MONOCYTES # (AUTO) 0.61 x10^3/uL (0.2-0.8); MONOCYTES % (AUTO) 4 % (2-9); NEUTROPHILS # (AUTO) 13.61 x10^3/uL (1.8-6.8); NEUTROPHILS % (AUTO) 89 % (42-75); PLATELET COUNT 640 x10^3/uL (130-400); RED BLOOD COUNT 3.48 x10^6/uL (4.38-5.82); RED CELL DISTRIBUTION WIDTH 16.1 % (9.4-14.8)
[2020-01-06 22:00] LABS: ALANINE AMINOTRANSFERASE 26 U/L (12-78); ALBUMIN 2.5 g/dL (3.4-5.0); ANION GAP 8 mmol/L (5-15); CALCIUM 7.7 mg/dL (8.5-10.1); CHLORIDE 112 mmol/L (98-107); CREATININE 2.44 mg/dL (0.7-1.3)
--- NOTE | 2020-01-06 22:02 | NUR ---
COOLING MEASURES FLU SWAB COLLECTED AND SENT. ADDITION VERSED TO SEDATION PT DIFFICULT TO SEDATE, QUERY HISTORY ETOH ABUSE. PROP CURRENTLY AT 40MCG/KG/MIN, VERSED 1MG/HR.
[2020-01-06 22:05] LABS: ALKALINE PHOSPHATASE 98 U/L (45-117); BILIRUBIN,TOTAL 0.3 mg/dL (0.2-1.0); TROPONIN I 0.047 ng/mL (0.000-0.045)
[2020-01-06] MEDS ORDERED: ACETAMINOPHEN 650 MG SUPP ONE (22:10)
[2020-01-06] MEDS ORDERED: CEFTRIAXONE PMX 1GM/50ML 50 ML ONE (22:14)
--- NOTE | 2020-01-06 22:19 | NUR ---
BLOOD CULTURES HAVE BEEN DRAWN, ANTIBIOTICS STARTED.
[2020-01-06] MEDS ORDERED: CEFTRIAXONE PMX 1GM/50ML 50 ML IVPB ONE (22:30)
[2020-01-06] MEDS ORDERED: ACETAMINOPHEN 120 MG SUPP PR ONE (22:30)
[2020-01-06] MEDS ORDERED: AZITHROMYCIN 500 MG in SODIUM CHLORIDE 0.9% 250 ML IVPB ONE (22:30)
--- NOTE | 2020-01-06 22:33 | NUR ---
PT SEDATED AT THIS TIME, COOLING MEASURES CONTINUE, PT HAS OLD APPEARING SCABS BILAT KNUCKES ON HANDS, R KNEE, SCABS ON CHEST AND UPPER ARMS WELL FROM APPEARANCE OF SCRATCHING, NO LICE/BEDBUGS/SCABIES NOTED AT THIS TIME.
[2020-01-06 22:34] LABS: RAPID INFLUENZA A Negative (Negative); RAPID INFLUENZA B Negative (Negative)
--- NOTE | 2020-01-06 22:49 | NUR ---
DR SCHWARTZ TO BEDSIDE AT THIS TIME
[2020-01-06] MEDS ORDERED: MAGNESIUM SULFATE PMX 2GM/50ML 50 ML IV ONE (23:00)
[2020-01-06] MEDS: CEFTRIAXONE PMX 1GM/50ML 50 ML IV SCH (23:00)
[2020-01-06] MEDS ORDERED: MAGNESIUM SULFATE PMX 2GM/50ML 50 ML ONE (23:01)
[2020-01-06] MEDS ORDERED: PROPOFOL 100 ML IV ONE (23:23)
[2020-01-06] MEDS: THIAMINE 200 MG in SODIUM CHLORIDE 0.9% 50 ML IV ONE (23:30)
[2020-01-06] MEDS ORDERED: PHARMACY INSTRUCTION MC PRN (23:30)
[2020-01-06] MEDS ORDERED: ONDANSETRON 2MG/ML, 2ML IVPush PRN (23:30)
[2020-01-06] MEDS ORDERED: PROMETHAZINE 25 MG/ML, 1ML IM PRN (23:30)
[2020-01-06] MEDS: THIAMINE 100 MG in SODIUM CHLORIDE 0.9% 50 ML IV SCH (23:30)
[2020-01-07] MEDS: THIAMINE 200 MG in SODIUM CHLORIDE 0.9% 50 ML IV ONE (00:27)
[2020-01-07] MEDS ORDERED: DEXTROSE 50%, 50ML SYRINGE IVPush PRN (01:00)
[2020-01-07] MEDS ORDERED: LACTULOSE 20 GM/30 ML UDC NG PRN (01:00)
[2020-01-07] MEDS ORDERED: BISACODYL 10 MG SUPP PR PRN (01:00)
[2020-01-07] MEDS ORDERED: PHARMACY MAY ADJ FOR RENAL FX MC SCH (01:00)
[2020-01-07] MEDS ORDERED: SENNA/DOCUSATE TABLET NG PRN (01:00)
[2020-01-07] MEDS ORDERED: LIDOCAINE-MPF 1%, 2ML ENDO PRN (01:00)
[2020-01-07] MEDS ORDERED: GLUCAGON 1 MG IM PRN (01:00)
[2020-01-07] MEDS ORDERED: SENNA 176 MG/5 ML ORAL SOL NG PRN (01:00)
[2020-01-07] MEDS ORDERED: DEXTROSE 4 GM TAB.CHEW PO PRN (01:00)
[2020-01-07] MEDS: DOXYCYCLINE 100 MG in DEXTROSE 5% 250 ML IV SCH ×2 (01:01→14:02)
[2020-01-07 01:27] LABS: INTERNATIONAL NORMALIZED RATIO 0.98 (0.93-1.1); PROTHROMBIN TIME 10.4 Seconds (9.6-11.5)
[2020-01-07] MEDS: ALBUTEROL/IPRATROPIUM 2.5MG/0.5MG, 3 ML INLINE SCH ×6 (01:30→22:35)
[2020-01-07 01:32] LABS: TROPONIN I 0.143 ng/mL (0.000-0.045)
[2020-01-07 01:39] VITALS: BP 147/101
[2020-01-07] MEDS ORDERED: SODIUM CHLORIDE 0.9% 1,000ML IVBOLUS ONE (02:00)
[2020-01-07 02:22] LABS: MICROSCOPIC INDICATED
[2020-01-07 02:30] LABS: CULTURE INDICATED? NO
[2020-01-07] MEDS: methylPREDNISolone SOD SUCC 125 MG/2 ML IVPush SCH ×4 (03:30→20:37)
[2020-01-07 04:17] LABS: TROPONIN I 0.163 ng/mL (0.000-0.045)
[2020-01-07] MEDS: INSULIN LISPRO 100 UNITS/ML, PEN SQ-INSULIN SCH ×4 (04:29→20:37)
[2020-01-07] MEDS: PROPOFOL 100 ML IV PRN ×4 (05:20→20:37)
[2020-01-07] MEDS: SODIUM CHLORIDE 0.9% 1,000 ML IV SCH ×2 (05:20→14:03)
[2020-01-07 06:40] LABS: TROPONIN I 0.193 ng/mL (0.000-0.045)
[2020-01-07] MEDS ORDERED: INSULIN LISPRO 100 UNITS/ML, PEN SQ-INSULIN SCH (07:00)
[2020-01-07] MEDS: BUDESONIDE 0.5 MG/2 ML INHA INH SCH ×2 (07:20→18:45)
[2020-01-07 08:23] LABS: MEAN CORPUSCULAR HEMOGLOBIN 30.6 pg (27.5-34.5); MEAN CORPUSCULAR VOLUME 95.5 fL (81-97); MEAN PLATELET VOLUME 6.7 fL (7.4-10.4); PLATELET COUNT 429 x10^3/uL (130-400); RED BLOOD COUNT 3.32 x10^6/uL (4.38-5.82); RED CELL DISTRIBUTION WIDTH 15.9 % (9.4-14.8)
[2020-01-07 08:34] LABS: ALANINE AMINOTRANSFERASE 24 U/L (12-78); ALBUMIN 1.9 g/dL (3.4-5.0); ANION GAP 10 mmol/L (5-15); CALCIUM 7.2 mg/dL (8.5-10.1); CHLORIDE 113 mmol/L (98-107); CREATININE 2.69 mg/dL (0.7-1.3)
[2020-01-07 08:39] LABS: ALKALINE PHOSPHATASE 67 U/L (45-117); BILIRUBIN,TOTAL 0.3 mg/dL (0.2-1.0); TOTAL PROTEIN 5.8 g/dL (6.4-8.2); TROPONIN I 0.167 ng/mL (0.000-0.045)
[2020-01-07 08:47] LABS: MD YES
[2020-01-07 08:49] LABS: BAND#(MANUAL) 9.33 x10^3/uL; BANDS%(MANUAL) 26 % (0-7); LYMPH#(MANUAL) 0.72 x10^3/uL (1-3.4); LYMPHS% (MANUAL) 2 % (22-44); SEG#(MANUAL) 25.85 x10^3/uL (1.8-6.8); SEGS% (MANUAL) 72 % (42-75)
[2020-01-07 08:51] LABS: ANISOCYTOSIS 1+; OVALOCYTES 1+
[2020-01-07 08:53] LABS: <PLATELET ESTIMATE> INCREASED; <PLT MORPHOLOGY> NORMAL PLT MORPH
[2020-01-07] MEDS: SODIUM CHLORIDE FLUSH 10ML SYR IVF SCH ×2 (09:00→20:35)
[2020-01-07] MEDS: FONDAPARINUX 2.5 MG/0.5 ML SQ SCH (10:26)
[2020-01-07] MEDS ORDERED: VANCOMYCIN PER PHARMACY MC PRN (14:30)
[2020-01-07] MEDS ORDERED: PHARMACOKINETIC CONSULTATION MC ONE (15:00)
[2020-01-07] MEDS ORDERED: VANCOMYCIN 1,500 MG in SODIUM CHLORIDE 0.9% 250 ML IV SCH (15:00)
[2020-01-07] MEDS ORDERED: PHARMACOKINETIC MONITORING MC PRN (15:00)
[2020-01-07] MEDS ORDERED: ALBUMIN HUMAN 25% 100 ML IV ONE (17:00)
[2020-01-07] MEDS: FENTANYL PF 100 MCG/2ML IVPush PRN (20:36)
[2020-01-07] MEDS: CEFTRIAXONE PMX 1GM/50ML 50 ML IV SCH (23:02)
[2020-01-07] MEDS: THIAMINE 100 MG in SODIUM CHLORIDE 0.9% 50 ML IV SCH (23:42)
[2020-01-08] MEDS: FENTANYL PF 100 MCG/2ML IVPush PRN (01:13)
[2020-01-08] MEDS: DOXYCYCLINE 100 MG in DEXTROSE 5% 250 ML IV SCH ×2 (01:13→12:31)
[2020-01-08] MEDS: ALBUTEROL/IPRATROPIUM 2.5MG/0.5MG, 3 ML INLINE SCH ×6 (02:10→22:48)
[2020-01-08] MEDS: PROPOFOL 100 ML IV PRN ×5 (02:24→21:47)
[2020-01-08] MEDS: methylPREDNISolone SOD SUCC 125 MG/2 ML IVPush SCH ×4 (03:38→21:19)
[2020-01-08] MEDS: INSULIN LISPRO 100 UNITS/ML, PEN SQ-INSULIN SCH ×4 (03:38→21:00)
[2020-01-08 04:45] LABS: MEAN CORPUSCULAR HGB CONC 32.4 g/dL (33.2-36.2); MEAN CORPUSCULAR VOLUME 95.5 fL (81-97); MEAN PLATELET VOLUME 7.6 fL (7.4-10.4); PLATELET COUNT 344 x10^3/uL (130-400); RED BLOOD COUNT 2.92 x10^6/uL (4.38-5.82); RED CELL DISTRIBUTION WIDTH 16.3 % (9.4-14.8)
[2020-01-08 04:46] LABS: ANION GAP 11 mmol/L (5-15); CALCIUM 7.7 mg/dL (8.5-10.1); CHLORIDE 110 mmol/L (98-107)
[2020-01-08 04:49] LABS: ALANINE AMINOTRANSFERASE 33 U/L (12-78); ALKALINE PHOSPHATASE 48 U/L (45-117); BILIRUBIN,TOTAL 0.4 mg/dL (0.2-1.0); CREATININE 3.02 mg/dL (0.7-1.3); TOTAL PROTEIN 5.7 g/dL (6.4-8.2)
[2020-01-08 05:41] LABS: MD YES
[2020-01-08 05:42] LABS: ANISOCYTOSIS 1+; BANDS%(MANUAL) 22 % (0-7); LYMPH#(MANUAL) 0.46 x10^3/uL (1-3.4); LYMPHS% (MANUAL) 1 % (22-44); MONOS#(MANUAL) 0.92 x10^3/uL (0.3-2.7); MONOS% (MANUAL) 2 % (2-9); OVALOCYTES 1+; SEG#(MANUAL) 34.43 x10^3/uL (1.8-6.8); SEGS% (MANUAL) 75 % (42-75)
[2020-01-08 05:43] LABS: <PLATELET ESTIMATE> ADEQUATE; <PLT MORPHOLOGY> NORMAL PLT MORPH
[2020-01-08] MEDS: SODIUM CHLORIDE 0.9% 1,000 ML IV SCH ×2 (06:02→22:57)
[2020-01-08] MEDS: BUDESONIDE 0.5 MG/2 ML INHA INH SCH ×2 (07:30→19:06)
[2020-01-08] MEDS: FONDAPARINUX 2.5 MG/0.5 ML SQ SCH (09:00)
[2020-01-08] MEDS: SODIUM CHLORIDE FLUSH 10ML SYR IVF SCH ×2 (09:15→21:19)
[2020-01-08] MEDS: DIAZEPAM 5 MG/ML, 2ML IVPush SCH ×3 (09:55→21:19)
[2020-01-08] MEDS: RIVAROXABAN 10 MG TABLET PO SCH (09:58)
[2020-01-08 15:22] LABS: ABSOLUTE RETICS # 0.041 x10^6/uL (0.5-1.5); RED BLOOD COUNT 3.21 x10^6/uL (4.38-5.82); RETICULOCYTE COUNT % 1.28 % (0.5-1.5)
[2020-01-08] MEDS: CEFTRIAXONE PMX 1GM/50ML 50 ML IV SCH (22:57)
[2020-01-08] MEDS: THIAMINE 200 MG in SODIUM CHLORIDE 0.9% 50 ML IV SCH (23:39)
[2020-01-09] MEDS: DOXYCYCLINE 100 MG in DEXTROSE 5% 250 ML IV SCH (00:26)
[2020-01-09] MEDS: FENTANYL PF 100 MCG/2ML IVPush PRN ×2 (00:27→15:29)
[2020-01-09] MEDS: ALBUTEROL/IPRATROPIUM 2.5MG/0.5MG, 3 ML INLINE SCH ×7 (02:20→19:08)
[2020-01-09] MEDS: INSULIN LISPRO 100 UNITS/ML, PEN SQ-INSULIN SCH ×4 (03:00→21:00)
[2020-01-09] MEDS: methylPREDNISolone SOD SUCC 125 MG/2 ML IVPush SCH ×4 (03:56→22:58)
[2020-01-09] MEDS: DIAZEPAM 5 MG/ML, 2ML IVPush SCH ×4 (03:56→22:58)
[2020-01-09] MEDS: PROPOFOL 100 ML IV PRN ×3 (03:57→19:04)
[2020-01-09 04:28] LABS: MEAN CORPUSCULAR HGB CONC 32.7 g/dL (33.2-36.2); MEAN CORPUSCULAR VOLUME 94.8 fL (81-97); MEAN PLATELET VOLUME 8.1 fL (7.4-10.4); PLATELET COUNT 296 x10^3/uL (130-400); RED BLOOD COUNT 2.82 x10^6/uL (4.38-5.82); RED CELL DISTRIBUTION WIDTH 16.4 % (9.4-14.8)
[2020-01-09 04:36] LABS: ALANINE AMINOTRANSFERASE 69 U/L (12-78); ALBUMIN 1.9 g/dL (3.4-5.0); ANION GAP 11 mmol/L (5-15); CALCIUM 7.8 mg/dL (8.5-10.1); CHLORIDE 111 mmol/L (98-107)
[2020-01-09 04:38] LABS: ALKALINE PHOSPHATASE 51 U/L (45-117); BILIRUBIN,TOTAL 0.2 mg/dL (0.2-1.0); TOTAL PROTEIN 5.8 g/dL (6.4-8.2)
[2020-01-09 04:50] LABS: CREATININE 3.05 mg/dL (0.7-1.3)
[2020-01-09 04:52] LABS: MD YES
[2020-01-09 04:53] LABS: BAND#(MANUAL) 5.53 x10^3/uL; BANDS%(MANUAL) 13 % (0-7); LYMPH#(MANUAL) 0.43 x10^3/uL (1-3.4); LYMPHS% (MANUAL) 1 % (22-44); SEG#(MANUAL) 36.55 x10^3/uL (1.8-6.8); SEGS% (MANUAL) 86 % (42-75)
[2020-01-09 04:54] LABS: OVALOCYTES 1+
[2020-01-09 04:55] LABS: ANISOCYTOSIS 1+
[2020-01-09 04:55] LABS: MICROSCOPIC INDICATED
[2020-01-09 04:56] LABS: <PLATELET ESTIMATE> ADEQUATE; <PLT MORPHOLOGY> NORMAL PLT MORPH
[2020-01-09 05:05] LABS: POTASSIUM,URINE RANDOM 53 mmol/L; SODIUM,URINE RANDOM 7 mmol/L; TOTAL PROTEIN,URINE RANDOM 138 mg/dL (0-12)
[2020-01-09 05:22] LABS: CHLORIDE,URINE RANDOM < 10 mmol/L
[2020-01-09] MEDS: BUDESONIDE 0.5 MG/2 ML INHA INH SCH ×2 (07:30→19:08)
[2020-01-09] MEDS: SODIUM CHLORIDE 0.9% 1,000 ML IV SCH ×3 (07:49→22:51)
[2020-01-09] MEDS: RIVAROXABAN 10 MG TABLET PO SCH (07:50)
[2020-01-09] MEDS: SODIUM CHLORIDE FLUSH 10ML SYR IVF SCH ×2 (07:54→22:51)
[2020-01-09] MEDS: ERGOCALCIFEROL 50,000 UNIT CAPSULE PO SCH (13:39)
[2020-01-09] MEDS: IRON SUCROSE COMPLEX 100MG/5ML IV SCH (13:39)
[2020-01-09] MEDS: CEFTRIAXONE PMX 2GM/50ML 50 ML IVPB SCH (22:58)
[2020-01-10] MEDS: THIAMINE 200 MG in SODIUM CHLORIDE 0.9% 50 ML IV SCH ×2 (00:24→23:40)
[2020-01-10] MEDS: ALBUTEROL/IPRATROPIUM 2.5MG/0.5MG, 3 ML INLINE SCH ×6 (01:00→22:00)
[2020-01-10] MEDS: PROPOFOL 100 ML IV PRN ×3 (03:23→20:31)
[2020-01-10 04:30] LABS: MEAN CORPUSCULAR HEMOGLOBIN 30.9 pg (27.5-34.5); MEAN CORPUSCULAR HGB CONC 32.4 g/dL (33.2-36.2); MEAN CORPUSCULAR VOLUME 95.3 fL (81-97); MEAN PLATELET VOLUME 8.2 fL (7.4-10.4); PLATELET COUNT 275 x10^3/uL (130-400); RED BLOOD COUNT 2.96 x10^6/uL (4.38-5.82); RED CELL DISTRIBUTION WIDTH 16.6 % (9.4-14.8)
[2020-01-10] MEDS: SODIUM CHLORIDE 0.9% 1,000 ML IV SCH (04:33)
[2020-01-10] MEDS: DIAZEPAM 5 MG/ML, 2ML IVPush SCH ×4 (04:33→21:37)
[2020-01-10] MEDS: methylPREDNISolone SOD SUCC 125 MG/2 ML IVPush SCH ×4 (04:33→21:36)
[2020-01-10 04:38] LABS: ANION GAP 9 mmol/L (5-15); CALCIUM 8.2 mg/dL (8.5-10.1); CHLORIDE 109 mmol/L (98-107)
[2020-01-10 04:44] LABS: ALANINE AMINOTRANSFERASE 82 U/L (12-78); ALKALINE PHOSPHATASE 59 U/L (45-117); BILIRUBIN,TOTAL 0.2 mg/dL (0.2-1.0); CREATININE 2.06 mg/dL (0.7-1.3); TRIGLYCERIDES 103 mg/dL (50-200)
[2020-01-10 04:48] LABS: MD YES
[2020-01-10 04:51] LABS: ANISOCYTOSIS 1+; BAND#(MANUAL) 0.61 x10^3/uL; BANDS%(MANUAL) 2 % (0-7); LYMPH#(MANUAL) 0.61 x10^3/uL (1-3.4); LYMPHS% (MANUAL) 2 % (22-44); OVALOCYTES 1+; SEG#(MANUAL) 29.38 x10^3/uL (1.8-6.8); SEGS% (MANUAL) 96 % (42-75)
[2020-01-10 04:52] LABS: <PLATELET ESTIMATE> ADEQUATE; <PLT MORPHOLOGY> NORMAL PLT MORPH; HYPOCHROMIA 1+; POLYCHROMASIA 1+
[2020-01-10] MEDS: INSULIN LISPRO 100 UNITS/ML, PEN SQ-INSULIN SCH (05:01)
[2020-01-10] MEDS: BUDESONIDE 0.5 MG/2 ML INHA INH SCH ×2 (07:45→18:34)
[2020-01-10] MEDS: SODIUM CHLORIDE FLUSH 10ML SYR IVF SCH ×2 (09:24→21:36)
[2020-01-10] MEDS: RIVAROXABAN 10 MG TABLET PO SCH (09:24)
[2020-01-10] MEDS: IRON SUCROSE COMPLEX 100MG/5ML IV SCH (12:49)
[2020-01-10] MEDS: CEFTRIAXONE PMX 2GM/50ML 50 ML IVPB SCH (22:29)
[2020-01-11] MEDS: FENTANYL PF 100 MCG/2ML IVPush PRN (00:25)
[2020-01-11] MEDS: ALBUTEROL/IPRATROPIUM 2.5MG/0.5MG, 3 ML INLINE SCH ×3 (02:00→10:00)
[2020-01-11] MEDS: PROPOFOL 100 ML IV PRN (02:44)
[2020-01-11] MEDS: methylPREDNISolone SOD SUCC 125 MG/2 ML IVPush SCH ×4 (03:56→20:30)
[2020-01-11] MEDS: DIAZEPAM 5 MG/ML, 2ML IVPush SCH ×4 (03:56→20:30)
[2020-01-11 04:30] LABS: ANION GAP 7 mmol/L (5-15); CALCIUM 8.1 mg/dL (8.5-10.1); CHLORIDE 106 mmol/L (98-107); CREATININE 1.72 mg/dL (0.7-1.3)
[2020-01-11 04:34] LABS: MEAN CORPUSCULAR HEMOGLOBIN 30.6 pg (27.5-34.5); MEAN CORPUSCULAR HGB CONC 32.5 g/dL (33.2-36.2); MEAN CORPUSCULAR VOLUME 94.2 fL (81-97); MEAN PLATELET VOLUME 8.4 fL (7.4-10.4); PLATELET COUNT 237 x10^3/uL (130-400); RED BLOOD COUNT 2.87 x10^6/uL (4.38-5.82); RED CELL DISTRIBUTION WIDTH 16.5 % (9.4-14.8)
[2020-01-11 04:57] LABS: BASOPHILS # (AUTO) 0.01 x10^3/uL (0-0.1); BASOPHILS % (AUTO) 0 % (0-1); EOSINOPHILS % (AUTO) 0 % (1-7); LYMPHOCYTES # (AUTO) 0.37 x10^3/uL (1-3.4); LYMPHOCYTES % (AUTO) 2 % (22-44); MD SCAN; MONOCYTES % (AUTO) 2 % (2-9); NEUTROPHILS # (AUTO) 14.91 x10^3/uL (1.8-6.8); NEUTROPHILS % (AUTO) 96 % (42-75)
[2020-01-11] MEDS: BUDESONIDE 0.5 MG/2 ML INHA INH SCH ×2 (06:00→18:39)
[2020-01-11] MEDS: RIVAROXABAN 10 MG TABLET PO SCH (08:44)
[2020-01-11] MEDS ORDERED: ALBUTEROL/IPRATROPIUM 2.5MG/0.5MG, 3 ML NPPB PRN (11:30)
[2020-01-11] MEDS: SODIUM CHLORIDE FLUSH 10ML SYR IVF SCH ×2 (12:44→20:30)
[2020-01-11] MEDS: IRON SUCROSE COMPLEX 100MG/5ML IV SCH (12:44)
[2020-01-11] MEDS: ALBUTEROL/IPRATROPIUM 2.5MG/0.5MG, 3 ML NPPB SCH ×3 (13:00→22:45)
[2020-01-12] MEDS: CEFTRIAXONE PMX 2GM/50ML 50 ML IVPB SCH ×2 (01:07→01:30)
[2020-01-12] MEDS: THIAMINE 200 MG in SODIUM CHLORIDE 0.9% 50 ML IV SCH ×2 (01:45→01:46)
[2020-01-12] MEDS: ALBUTEROL/IPRATROPIUM 2.5MG/0.5MG, 3 ML NPPB SCH ×5 (02:00→20:07)
[2020-01-12] MEDS: methylPREDNISolone SOD SUCC 125 MG/2 ML IVPush SCH ×4 (03:06→21:00)
[2020-01-12] MEDS: DIAZEPAM 5 MG/ML, 2ML IVPush SCH ×4 (03:06→21:01)
[2020-01-12 03:26] LABS: MEAN CORPUSCULAR HEMOGLOBIN 30.8 pg (27.5-34.5); MEAN CORPUSCULAR HGB CONC 32.3 g/dL (33.2-36.2); MEAN CORPUSCULAR VOLUME 95.3 fL (81-97); MEAN PLATELET VOLUME 7.9 fL (7.4-10.4); PLATELET COUNT 225 x10^3/uL (130-400); RED BLOOD COUNT 2.88 x10^6/uL (4.38-5.82); RED CELL DISTRIBUTION WIDTH 16.4 % (9.4-14.8)
[2020-01-12 03:38] LABS: ALANINE AMINOTRANSFERASE 61 U/L (12-78); ALBUMIN 2.3 g/dL (3.4-5.0); ANION GAP 6 mmol/L (5-15); CHLORIDE 105 mmol/L (98-107)
[2020-01-12 03:41] LABS: ALKALINE PHOSPHATASE 55 U/L (45-117); BILIRUBIN,TOTAL 0.3 mg/dL (0.2-1.0); CREATININE 1.04 mg/dL (0.7-1.3); TOTAL PROTEIN 6.2 g/dL (6.4-8.2)
[2020-01-12 03:43] LABS: MD YES
[2020-01-12 03:45] LABS: <PLATELET ESTIMATE> ADEQUATE; <PLT MORPHOLOGY> NORMAL PLT MORPH; ANISOCYTOSIS 1+; BAND#(MANUAL) 0.15 x10^3/uL; BANDS%(MANUAL) 1 % (0-7); LYMPH#(MANUAL) 0.44 x10^3/uL (1-3.4); LYMPHS% (MANUAL) 3 % (22-44); MONOS#(MANUAL) 0.59 x10^3/uL (0.3-2.7); MONOS% (MANUAL) 4 % (2-9); MYELOCYTES# (MANUAL) 0.15 x10^3/uL (0-0); MYELOCYTES% (MANUAL) 1 % (0-0); POLYCHROMASIA 1+; SEG#(MANUAL) 13.38 x10^3/uL (1.8-6.8); SEGS% (MANUAL) 91 % (42-75)
[2020-01-12] MEDS ORDERED: METOPROLOL 1 MG/ML, 5ML IVPush STA (04:57)
[2020-01-12] MEDS ORDERED: METOPROLOL 1 MG/ML, 5ML ONE (05:00)
[2020-01-12] MEDS: METOPROLOL TARTRATE 25 MG TAB PO SCH ×2 (05:51→17:36)
[2020-01-12] MEDS: RIVAROXABAN 10 MG TABLET PO SCH (08:19)
[2020-01-12] MEDS: SODIUM CHLORIDE FLUSH 10ML SYR IVF SCH ×2 (08:20→21:00)
[2020-01-12] MEDS: BUDESONIDE 0.5 MG/2 ML INHA INH SCH ×2 (09:00→20:07)
--- NOTE | 2020-01-12 09:26 | NUR ---
RUCHIE/NTL -Up for all meals -1:1 Assist -No straws -Alternate bites/sips Addendum: 01/12/20 at [address] Amended: Links added.
--- NOTE | 2020-01-12 11:50 | NUR ---
CHOPPED/THINS meds as tolerated up for all meals straws ok alternate solids and liquids Addendum: 01/12/20 at [address] Amended: Links added.
[2020-01-12] MEDS: IRON SUCROSE COMPLEX 100MG/5ML IV SCH (13:25)
[2020-01-12] MEDS: QUETIAPINE 25MG TABLET PO SCH (21:00)
[2020-01-12] MEDS ORDERED: AMIODARONE 150 MG in DEXTROSE 5% 100 ML IV ONE (23:00)
[2020-01-12] MEDS ORDERED: AMIODARONE 450 MG in DEXTROSE 5% 241 ML IV PRN (23:00)
[2020-01-13] MEDS: CEFTRIAXONE PMX 2GM/50ML 50 ML IVPB SCH (01:53)
[2020-01-13] MEDS: THIAMINE 200 MG in SODIUM CHLORIDE 0.9% 50 ML IV SCH (02:06)
[2020-01-13] MEDS: DIAZEPAM 5 MG/ML, 2ML IVPush SCH (02:57)
[2020-01-13] MEDS: methylPREDNISolone SOD SUCC 125 MG/2 ML IVPush SCH (02:57)
[2020-01-13 04:10] LABS: ALANINE AMINOTRANSFERASE 46 U/L (12-78); ALBUMIN 2.2 g/dL (3.4-5.0); ANION GAP 7 mmol/L (5-15); BASOPHILS # (AUTO) 0.02 x10^3/uL (0-0.1); BASOPHILS % (AUTO) 0 % (0-1); CALCIUM 8.2 mg/dL (8.5-10.1); CHLORIDE 108 mmol/L (98-107); CREATININE 1.93 mg/dL (0.7-1.3); EOSINOPHILS # (AUTO) 0.08 x10^3/uL (0-0.4); EOSINOPHILS % (AUTO) 1 % (1-7); LYMPHOCYTES % (AUTO) 5 % (22-44); MD NO; MEAN CORPUSCULAR HEMOGLOBIN 30.4 pg (27.5-34.5); MEAN CORPUSCULAR HGB CONC 31.9 g/dL (33.2-36.2); MEAN CORPUSCULAR VOLUME 95.2 fL (81-97); MEAN PLATELET VOLUME 8.1 fL (7.4-10.4); MONOCYTES # (AUTO) 0.38 x10^3/uL (0.2-0.8); MONOCYTES % (AUTO) 4 % (2-9); NEUTROPHILS # (AUTO) 8.26 x10^3/uL (1.8-6.8); NEUTROPHILS % (AUTO) 89 % (42-75); PLATELET COUNT 193 x10^3/uL (130-400); RED BLOOD COUNT 2.68 x10^6/uL (4.38-5.82); RED CELL DISTRIBUTION WIDTH 16.2 % (9.4-14.8)
[2020-01-13 04:15] LABS: ALKALINE PHOSPHATASE 55 U/L (45-117); BILIRUBIN,TOTAL 0.2 mg/dL (0.2-1.0); TOTAL PROTEIN 5.7 g/dL (6.4-8.2); TRIGLYCERIDES 73 mg/dL (50-200)
[2020-01-13] MEDS: METOPROLOL TARTRATE 25 MG TAB PO SCH ×2 (06:03→17:47)
[2020-01-13] MEDS: ALBUTEROL/IPRATROPIUM 2.5MG/0.5MG, 3 ML NPPB SCH ×4 (07:00→20:00)
[2020-01-13] MEDS: BUDESONIDE 0.5 MG/2 ML INHA INH SCH ×2 (09:00→21:00)
[2020-01-13] MEDS ORDERED: FUROSEMIDE 100 MG/10 ML IV ONE (09:00)
[2020-01-13] MEDS: SODIUM CHLORIDE FLUSH 10ML SYR IVF SCH ×2 (09:52→20:15)
[2020-01-13] MEDS: RIVAROXABAN 10 MG TABLET PO SCH (09:52)
[2020-01-13] MEDS: IRON SUCROSE COMPLEX 100MG/5ML IV SCH (15:12)
[2020-01-13] MEDS: QUETIAPINE 25MG TABLET PO SCH (20:01)
[2020-01-13 21:35] VITALS: BP 166/101
[2020-01-14 00:26] VITALS: BP 147/78
[2020-01-14] MEDS: CEFTRIAXONE PMX 2GM/50ML 50 ML IVPB SCH (01:55)
[2020-01-14 05:48] LABS: ANION GAP 8 mmol/L (5-15); CALCIUM 8.2 mg/dL (8.5-10.1); CHLORIDE 106 mmol/L (98-107); CREATININE 2.13 mg/dL (0.7-1.3)
[2020-01-14 05:51] LABS: BASOPHILS % (AUTO) 0 % (0-1); EOSINOPHILS # (AUTO) 0.12 x10^3/uL (0-0.4); EOSINOPHILS % (AUTO) 1 % (1-7); LYMPHOCYTES # (AUTO) 0.47 x10^3/uL (1-3.4); LYMPHOCYTES % (AUTO) 4 % (22-44); MD NO; MEAN CORPUSCULAR HEMOGLOBIN 30.4 pg (27.5-34.5); MEAN CORPUSCULAR HGB CONC 31.8 g/dL (33.2-36.2); MEAN CORPUSCULAR VOLUME 95.7 fL (81-97); MEAN PLATELET VOLUME 7.8 fL (7.4-10.4); MONOCYTES # (AUTO) 0.75 x10^3/uL (0.2-0.8); MONOCYTES % (AUTO) 7 % (2-9); NEUTROPHILS # (AUTO) 9.79 x10^3/uL (1.8-6.8); NEUTROPHILS % (AUTO) 88 % (42-75); PLATELET COUNT 234 x10^3/uL (130-400); RED BLOOD COUNT 2.69 x10^6/uL (4.38-5.82); RED CELL DISTRIBUTION WIDTH 16.6 % (9.4-14.8)
[2020-01-14] MEDS: METOPROLOL TARTRATE 25 MG TAB PO SCH ×2 (06:30→16:57)
[2020-01-14 07:23] VITALS: BP 154/88
[2020-01-14] MEDS: BUDESONIDE 0.5 MG/2 ML INHA INH SCH ×2 (07:40→21:30)
[2020-01-14] MEDS: ALBUTEROL/IPRATROPIUM 2.5MG/0.5MG, 3 ML NPPB SCH ×3 (07:40→21:30)
[2020-01-14] MEDS: RIVAROXABAN 10 MG TABLET PO SCH ×3 (08:52→09:00)
[2020-01-14] MEDS: SODIUM CHLORIDE FLUSH 10ML SYR IVF SCH ×2 (08:53→21:53)
[2020-01-14 12:20] VITALS: BP 154/77
[2020-01-14 18:45] VITALS: BP 163/100
[2020-01-14] MEDS: QUETIAPINE 25MG TABLET PO SCH (21:53)
[2020-01-15 00:49] VITALS: BP 157/94
[2020-01-15] MEDS: CEFTRIAXONE PMX 2GM/50ML 50 ML IVPB SCH (01:18)
[2020-01-15 03:32] LABS: BASOPHILS # (AUTO) 0.01 x10^3/uL (0-0.1); BASOPHILS % (AUTO) 0 % (0-1); EOSINOPHILS # (AUTO) 0.14 x10^3/uL (0-0.4); EOSINOPHILS % (AUTO) 2 % (1-7); LYMPHOCYTES # (AUTO) 0.49 x10^3/uL (1-3.4); LYMPHOCYTES % (AUTO) 5 % (22-44); MD NO; MEAN CORPUSCULAR HEMOGLOBIN 29.9 pg (27.5-34.5); MEAN CORPUSCULAR HGB CONC 31.7 g/dL (33.2-36.2); MEAN CORPUSCULAR VOLUME 94.5 fL (81-97); MEAN PLATELET VOLUME 7.7 fL (7.4-10.4); MONOCYTES # (AUTO) 0.41 x10^3/uL (0.2-0.8); MONOCYTES % (AUTO) 5 % (2-9); NEUTROPHILS # (AUTO) 7.93 x10^3/uL (1.8-6.8); NEUTROPHILS % (AUTO) 88 % (42-75); PLATELET COUNT 231 x10^3/uL (130-400); RED BLOOD COUNT 2.45 x10^6/uL (4.38-5.82); RED CELL DISTRIBUTION WIDTH 16.5 % (9.4-14.8)
[2020-01-15 04:54] LABS: ALANINE AMINOTRANSFERASE 37 U/L (12-78); ANION GAP 8 mmol/L (5-15); CHLORIDE 109 mmol/L (98-107); CREATININE 2.07 mg/dL (0.7-1.3)
[2020-01-15 04:56] LABS: ALKALINE PHOSPHATASE 63 U/L (45-117); BILIRUBIN,TOTAL 0.2 mg/dL (0.2-1.0); TOTAL PROTEIN 5.3 g/dL (6.4-8.2)
[2020-01-15 05:22] VITALS: BP 164/99
[2020-01-15] MEDS: METOPROLOL TARTRATE 25 MG TAB PO SCH ×2 (05:24→18:25)
[2020-01-15 07:02] VITALS: BP 171/93
[2020-01-15] MEDS ORDERED: MAGNESIUM SULFATE/D5W 100 ML IV ONE (07:30)
[2020-01-15] MEDS: RIVAROXABAN 10 MG TABLET PO SCH (08:53)
[2020-01-15] MEDS: SODIUM CHLORIDE FLUSH 10ML SYR IVF SCH ×2 (09:00→21:00)
[2020-01-15] MEDS: BUDESONIDE 0.5 MG/2 ML INHA INH SCH ×2 (09:00→21:00)
[2020-01-15] MEDS: ALBUTEROL/IPRATROPIUM 2.5MG/0.5MG, 3 ML NPPB SCH ×2 (09:00→21:00)
[2020-01-15 12:35] VITALS: BP 155/93
[2020-01-15 19:32] VITALS: BP 136/83
[2020-01-15] MEDS: QUETIAPINE 25MG TABLET PO SCH (21:47)
[2020-01-16] VITALS (11 sets, daily range): BP systolic 119–163; BP diastolic 71–99
[2020-01-16] MEDS: CEFTRIAXONE PMX 2GM/50ML 50 ML IVPB SCH (01:00)
[2020-01-16] MEDS: METOPROLOL TARTRATE 25 MG TAB PO SCH ×2 (05:19→17:03)
[2020-01-16 05:57] LABS: ALBUMIN 2.1 g/dL (3.4-5.0); ANION GAP 6 mmol/L (5-15); CALCIUM 7.7 mg/dL (8.5-10.1); CHLORIDE 106 mmol/L (98-107); CREATININE 1.35 mg/dL (0.7-1.3)
[2020-01-16 06:01] LABS: MEAN CORPUSCULAR HEMOGLOBIN 30.3 pg (27.5-34.5); MEAN CORPUSCULAR HGB CONC 31.9 g/dL (33.2-36.2); MEAN CORPUSCULAR VOLUME 95.1 fL (81-97); MEAN PLATELET VOLUME 7.7 fL (7.4-10.4); PLATELET COUNT 203 x10^3/uL (130-400); RED CELL DISTRIBUTION WIDTH 16.5 % (9.4-14.8)
[2020-01-16 06:20] LABS: MD MORPH REVIEW ONLY
[2020-01-16 06:21] LABS: ANISOCYTOSIS 1+; BASOPHILS % (AUTO) 0 % (0-1); EOSINOPHILS # (AUTO) 0.14 x10^3/uL (0-0.4); EOSINOPHILS % (AUTO) 2 % (1-7); LYMPHOCYTES # (AUTO) 0.64 x10^3/uL (1-3.4); LYMPHOCYTES % (AUTO) 9 % (22-44); MONOCYTES # (AUTO) 0.56 x10^3/uL (0.2-0.8); MONOCYTES % (AUTO) 8 % (2-9); NEUTROPHILS # (AUTO) 5.92 x10^3/uL (1.8-6.8); NEUTROPHILS % (AUTO) 82 % (42-75)
[2020-01-16 06:22] LABS: <PLATELET ESTIMATE> ADEQUATE; <PLT MORPHOLOGY> NORMAL PLT MORPH; OVALOCYTES 1+
[2020-01-16] MEDS: BUDESONIDE 0.5 MG/2 ML INHA INH SCH ×2 (07:32→19:55)
[2020-01-16] MEDS: ALBUTEROL/IPRATROPIUM 2.5MG/0.5MG, 3 ML NPPB SCH ×2 (07:32→19:55)
[2020-01-16] MEDS: RIVAROXABAN 10 MG TABLET PO SCH (09:00)
[2020-01-16] MEDS: SODIUM CHLORIDE FLUSH 10ML SYR IVF SCH ×2 (09:09→21:00)
[2020-01-16] MEDS: ERGOCALCIFEROL 50,000 UNIT CAPSULE PO SCH (13:49)
[2020-01-16] MEDS: QUETIAPINE 25MG TABLET PO SCH (21:09)
[2020-01-17 00:24] VITALS: BP 156/87
[2020-01-17] MEDS: CEFTRIAXONE PMX 2GM/50ML 50 ML IVPB SCH (01:50)
[2020-01-17] MEDS: METOPROLOL TARTRATE 25 MG TAB PO SCH ×2 (05:00→17:23)
[2020-01-17 06:17] LABS: OCCULT BLOOD POSITIVE (NEGATIVE)
[2020-01-17 06:32] LABS: BASOPHILS # (AUTO) 0.02 x10^3/uL (0-0.1); BASOPHILS % (AUTO) 0 % (0-1); EOSINOPHILS # (AUTO) 0.12 x10^3/uL (0-0.4); EOSINOPHILS % (AUTO) 1 % (1-7); LYMPHOCYTES # (AUTO) 0.85 x10^3/uL (1-3.4); LYMPHOCYTES % (AUTO) 10 % (22-44); MD NO; MEAN CORPUSCULAR VOLUME 93.8 fL (81-97); MEAN PLATELET VOLUME 8.1 fL (7.4-10.4); MONOCYTES # (AUTO) 0.64 x10^3/uL (0.2-0.8); MONOCYTES % (AUTO) 8 % (2-9); NEUTROPHILS # (AUTO) 6.74 x10^3/uL (1.8-6.8); NEUTROPHILS % (AUTO) 81 % (42-75); PLATELET COUNT 225 x10^3/uL (130-400); RED CELL DISTRIBUTION WIDTH 17.6 % (9.4-14.8)
[2020-01-17 06:33] LABS: ANION GAP 7 mmol/L (5-15); CALCIUM 7.9 mg/dL (8.5-10.1); CHLORIDE 106 mmol/L (98-107)
[2020-01-17 06:34] LABS: CREATININE 1.45 mg/dL (0.7-1.3)
[2020-01-17] MEDS: SODIUM CHLORIDE FLUSH 10ML SYR IVF SCH ×2 (09:00→20:56)
[2020-01-17] MEDS: BUDESONIDE 0.5 MG/2 ML INHA INH SCH ×2 (09:15→20:38)
[2020-01-17] MEDS: ALBUTEROL/IPRATROPIUM 2.5MG/0.5MG, 3 ML NPPB SCH ×2 (09:15→20:38)
[2020-01-17 09:38] VITALS: BP 132/60
[2020-01-17 09:40] VITALS: BP 158/93
[2020-01-17] MEDS ORDERED: FUROSEMIDE 40 MG/4 ML ONE ×2 (09:43→18:39)
[2020-01-17] MEDS ORDERED: FUROSEMIDE 40 MG/4 ML IV ONE (10:00)
[2020-01-17 10:09] LABS: FIO2 15 %
[2020-01-17 10:24] VITALS: BP 163/88
[2020-01-17] MEDS: PANTOPRAZOLE 80 MG in SODIUM CHLORIDE 0.9% 100 ML IV SCH ×2 (12:33→22:11)
[2020-01-17 12:37] VITALS: BP 163/82
[2020-01-17] MEDS ORDERED: FUROSEMIDE 40 MG/4 ML IV SCH (19:00)
[2020-01-17] MEDS ORDERED: LORazepam 2 MG/ML, 1ML ONE (19:17)
[2020-01-17] MEDS ORDERED: LORazepam 2 MG/ML, 1ML IVPush ONE (20:00)
[2020-01-17] MEDS: QUETIAPINE 25MG TABLET PO SCH (20:56)
[2020-01-17 20:58] VITALS: BP 154/78
[2020-01-18] VITALS (10 sets, daily range): BP systolic 145–209; BP diastolic 68–127
[2020-01-18] MEDS: METOPROLOL TARTRATE 25 MG TAB PO SCH ×2 (06:21→17:38)
[2020-01-18] MEDS: PANTOPRAZOLE 80 MG in SODIUM CHLORIDE 0.9% 100 ML IV SCH ×2 (06:21→13:22)
[2020-01-18 07:05] LABS: ANION GAP 5 mmol/L (5-15); CHLORIDE 109 mmol/L (98-107)
[2020-01-18 07:06] LABS: CREATININE 1.46 mg/dL (0.7-1.3)
[2020-01-18 07:37] LABS: MEAN CORPUSCULAR HEMOGLOBIN 30.7 pg (27.5-34.5); MEAN CORPUSCULAR HGB CONC 32.5 g/dL (33.2-36.2); MEAN CORPUSCULAR VOLUME 94.8 fL (81-97); MEAN PLATELET VOLUME 7.9 fL (7.4-10.4); PLATELET COUNT 183 x10^3/uL (130-400); RED CELL DISTRIBUTION WIDTH 17.4 % (9.4-14.8)
[2020-01-18 07:44] LABS: MD SCAN
[2020-01-18 07:45] LABS: BASOPHILS # (AUTO) 0.01 x10^3/uL (0-0.1); BASOPHILS % (AUTO) 0 % (0-1); EOSINOPHILS # (AUTO) 0.01 x10^3/uL (0-0.4); EOSINOPHILS % (AUTO) 0 % (1-7); LYMPHOCYTES # (AUTO) 0.62 x10^3/uL (1-3.4); LYMPHOCYTES % (AUTO) 12 % (22-44); MONOCYTES # (AUTO) 0.48 x10^3/uL (0.2-0.8); MONOCYTES % (AUTO) 9 % (2-9); NEUTROPHILS # (AUTO) 4.25 x10^3/uL (1.8-6.8); NEUTROPHILS % (AUTO) 79 % (42-75)
[2020-01-18] MEDS: ALBUTEROL/IPRATROPIUM 2.5MG/0.5MG, 3 ML NPPB SCH ×2 (08:00→20:32)
[2020-01-18] MEDS: BUDESONIDE 0.5 MG/2 ML INHA INH SCH ×2 (08:00→20:33)
[2020-01-18] MEDS ORDERED: FUROSEMIDE 40 MG/4 ML IV SCH ×2 (09:00)
[2020-01-18] MEDS ORDERED: CEFTRIAXONE PMX 2GM/50ML 50 ML IV SCH (09:30)
[2020-01-18] MEDS: SODIUM CHLORIDE FLUSH 10ML SYR IVF SCH ×2 (09:54→20:15)
[2020-01-18] MEDS: FUROSEMIDE 40 MG/4 ML IV SCH ×3 (12:30→20:14)
[2020-01-18] MEDS: hydrALAzine 20 MG/ML, 1ML IV PRN (16:08)
[2020-01-18] MEDS: CARVEDILOL 12.5 MG TABLET PO SCH (17:35)
[2020-01-18] MEDS: LISINOPRIL 10 MG TABLET PO SCH (17:35)
[2020-01-18] MEDS: QUETIAPINE 25MG TABLET PO SCH (20:14)
[2020-01-19 02:39] VITALS: BP 158/75
[2020-01-19] MEDS: PANTOPRAZOLE 80 MG in SODIUM CHLORIDE 0.9% 100 ML IV SCH ×2 (03:49→14:10)
[2020-01-19] MEDS: METOPROLOL TARTRATE 25 MG TAB PO SCH (05:50)
[2020-01-19 06:51] LABS: ANION GAP 4 mmol/L (5-15); CALCIUM 7.9 mg/dL (8.5-10.1); CHLORIDE 108 mmol/L (98-107); CREATININE 1.52 mg/dL (0.7-1.3)
[2020-01-19 07:35] VITALS: BP 132/75
[2020-01-19] MEDS: BUDESONIDE 0.5 MG/2 ML INHA INH SCH ×2 (07:45→21:00)
[2020-01-19] MEDS: ALBUTEROL/IPRATROPIUM 2.5MG/0.5MG, 3 ML NPPB SCH ×2 (07:45→21:00)
[2020-01-19] MEDS ORDERED: THIAMINE 100MG TABLET PO SCH (09:00)
[2020-01-19] MEDS: SODIUM CHLORIDE FLUSH 10ML SYR IVF SCH ×2 (09:00→19:54)
[2020-01-19] MEDS ORDERED: CARVEDILOL 12.5 MG TABLET PO SCH (09:00)
[2020-01-19] MEDS ORDERED: LISINOPRIL 10 MG TABLET PO SCH (09:00)
[2020-01-19] MEDS: FOLIC ACID 1 MG TABLET PO SCH (09:14)
[2020-01-19] MEDS: SERTRALINE 100MG TABLET PO SCH (09:14)
[2020-01-19] MEDS: MULTIVITAMIN 1 TABLET PO SCH (09:14)
[2020-01-19] MEDS: LISINOPRIL 10 MG TABLET PO SCH (09:15)
[2020-01-19] MEDS: FUROSEMIDE 40 MG/4 ML IV SCH ×3 (09:25→19:54)
[2020-01-19] MEDS: CARVEDILOL 12.5 MG TABLET PO SCH (11:15)
[2020-01-19 11:22] LABS: OCCULT BLOOD POSITIVE (NEGATIVE)
[2020-01-19 12:22] VITALS: BP 124/74
[2020-01-19] MEDS: PIPERACILLIN/TAZO/PMX 3.375GM 50 ML IV SCH ×2 (14:01→19:53)
[2020-01-19] MEDS ORDERED: LIDOCAINE 1%, 20ML ONE (14:27)
[2020-01-19] MEDS ORDERED: FENTANYL PF 100 MCG/2ML ONE (14:50)
[2020-01-19] MEDS ORDERED: NALOXONE 1 MG/ML, 2ML ONE (14:51)
[2020-01-19 19:23] VITALS: BP 149/86
[2020-01-19] MEDS: QUETIAPINE 25MG TABLET PO SCH (19:54)
[2020-01-20] MEDS: PANTOPRAZOLE 80 MG in SODIUM CHLORIDE 0.9% 100 ML IV SCH ×3 (01:29→20:56)
[2020-01-20 01:34] VITALS: BP 116/64
[2020-01-20] MEDS: PIPERACILLIN/TAZO/PMX 3.375GM 50 ML IV SCH ×3 (03:32→20:11)
[2020-01-20 04:22] LABS: ANION GAP 6 mmol/L (5-15); CALCIUM 7.6 mg/dL (8.5-10.1); CHLORIDE 107 mmol/L (98-107); CREATININE 1.68 mg/dL (0.7-1.3)
[2020-01-20 04:31] LABS: BASOPHILS # (AUTO) 0.03 x10^3/uL (0-0.1); BASOPHILS % (AUTO) 1 % (0-1); EOSINOPHILS % (AUTO) 0 % (1-7); LYMPHOCYTES # (AUTO) 0.63 x10^3/uL (1-3.4); LYMPHOCYTES % (AUTO) 18 % (22-44); MD NO; MEAN CORPUSCULAR HEMOGLOBIN 31.2 pg (27.5-34.5); MEAN CORPUSCULAR VOLUME 94.5 fL (81-97); MEAN PLATELET VOLUME 7.9 fL (7.4-10.4); MONOCYTES # (AUTO) 0.38 x10^3/uL (0.2-0.8); MONOCYTES % (AUTO) 11 % (2-9); NEUTROPHILS % (AUTO) 71 % (42-75); PLATELET COUNT 150 x10^3/uL (130-400); RED BLOOD COUNT 2.48 x10^6/uL (4.38-5.82); RED CELL DISTRIBUTION WIDTH 16.8 % (9.4-14.8)
[2020-01-20 08:07] VITALS: BP 154/91
[2020-01-20] MEDS: SERTRALINE 100MG TABLET PO SCH (08:10)
[2020-01-20] MEDS: CARVEDILOL 12.5 MG TABLET PO SCH (08:10)
[2020-01-20] MEDS: THIAMINE 100MG TABLET PO SCH (08:10)
[2020-01-20] MEDS: FOLIC ACID 1 MG TABLET PO SCH (08:10)
[2020-01-20] MEDS: MULTIVITAMIN 1 TABLET PO SCH (08:10)
[2020-01-20] MEDS: LISINOPRIL 10 MG TABLET PO SCH (08:10)
[2020-01-20] MEDS: FUROSEMIDE 40 MG/4 ML IV SCH ×3 (08:11→20:11)
[2020-01-20 08:15] VITALS: BP 137/79
[2020-01-20] MEDS: SODIUM CHLORIDE FLUSH 10ML SYR IVF SCH ×2 (08:15→20:12)
[2020-01-20] MEDS: ALBUTEROL/IPRATROPIUM 2.5MG/0.5MG, 3 ML NPPB SCH ×2 (09:10→20:32)
[2020-01-20] MEDS: BUDESONIDE 0.5 MG/2 ML INHA INH SCH ×2 (09:10→20:32)
--- NOTE | 2020-01-20 10:35 | NUR ---
REC: GROUND/THINS Addendum: 01/20/20 at 1036 by Yuliya MELVIN Amended: Links added.
[2020-01-20 12:44] VITALS: BP 133/71
[2020-01-20 19:48] VITALS: BP 144/80
[2020-01-20] MEDS: QUETIAPINE 25MG TABLET PO SCH (20:11)
[2020-01-21 02:37] VITALS: BP 145/89
[2020-01-21] MEDS: PIPERACILLIN/TAZO/PMX 3.375GM 50 ML IV SCH ×3 (03:11→20:35)
[2020-01-21 06:08] LABS: BASOPHILS # (AUTO) 0.05 x10^3/uL (0-0.1); BASOPHILS % (AUTO) 2 % (0-1); EOSINOPHILS # (AUTO) 0.04 x10^3/uL (0-0.4); EOSINOPHILS % (AUTO) 1 % (1-7); LYMPHOCYTES # (AUTO) 0.99 x10^3/uL (1-3.4); LYMPHOCYTES % (AUTO) 28 % (22-44); MD NO; MEAN CORPUSCULAR HEMOGLOBIN 30.7 pg (27.5-34.5); MEAN CORPUSCULAR VOLUME 93.1 fL (81-97); MEAN PLATELET VOLUME 8.2 fL (7.4-10.4); MONOCYTES # (AUTO) 0.42 x10^3/uL (0.2-0.8); MONOCYTES % (AUTO) 12 % (2-9); NEUTROPHILS # (AUTO) 2.09 x10^3/uL (1.8-6.8); NEUTROPHILS % (AUTO) 58 % (42-75); PLATELET COUNT 148 x10^3/uL (130-400); RED BLOOD COUNT 2.79 x10^6/uL (4.38-5.82); RED CELL DISTRIBUTION WIDTH 17.1 % (9.4-14.8)
[2020-01-21 06:19] LABS: ANION GAP 7 mmol/L (5-15); CALCIUM 7.8 mg/dL (8.5-10.1); CHLORIDE 106 mmol/L (98-107)
[2020-01-21 07:28] VITALS: BP 161/88
[2020-01-21] MEDS: ALBUTEROL/IPRATROPIUM 2.5MG/0.5MG, 3 ML NPPB SCH ×2 (07:40→21:00)
[2020-01-21] MEDS: BUDESONIDE 0.5 MG/2 ML INHA INH SCH ×2 (07:40→21:00)
[2020-01-21] MEDS: MULTIVITAMIN 1 TABLET PO SCH (10:02)
[2020-01-21] MEDS: FOLIC ACID 1 MG TABLET PO SCH (10:02)
[2020-01-21] MEDS: FERROUS SULFATE 325 MG TABLET PO SCH (10:02)
[2020-01-21] MEDS: LISINOPRIL 10 MG TABLET PO SCH (10:03)
[2020-01-21] MEDS: SERTRALINE 100MG TABLET PO SCH (10:03)
[2020-01-21] MEDS: THIAMINE 100MG TABLET PO SCH (10:03)
[2020-01-21 11:02] LABS: OCCULT BLOOD POSITIVE (NEGATIVE)
[2020-01-21] MEDS: PANTOPRAZOLE 40MG TABLET PO SCH (12:26)
[2020-01-21] MEDS: SODIUM CHLORIDE FLUSH 10ML SYR IVF SCH ×2 (12:27→20:36)
[2020-01-21] MEDS: METOLAZONE 5 MG TABLET PO SCH (12:27)
[2020-01-21 15:17] VITALS: BP 143/82
[2020-01-21 19:42] VITALS: BP 158/87
[2020-01-21] MEDS: FUROSEMIDE 20 MG/2 ML IV SCH (20:35)
[2020-01-21] MEDS: QUETIAPINE 25MG TABLET PO SCH (20:36)
[2020-01-22 01:39] VITALS: BP 173/98
[2020-01-22] MEDS: hydrALAzine 20 MG/ML, 1ML IV PRN (01:51)
[2020-01-22] MEDS: PIPERACILLIN/TAZO/PMX 3.375GM 50 ML IV SCH ×3 (04:26→20:39)
[2020-01-22 05:31] LABS: CALCIUM 7.6 mg/dL (8.5-10.1); CHLORIDE 109 mmol/L (98-107)
[2020-01-22 05:34] LABS: ANION GAP 7 mmol/L (5-15); CREATININE 1.51 mg/dL (0.7-1.3)
[2020-01-22] MEDS: PANTOPRAZOLE 40MG TABLET PO SCH (05:38)
[2020-01-22] MEDS: ALBUTEROL/IPRATROPIUM 2.5MG/0.5MG, 3 ML NPPB SCH ×2 (07:00→20:11)
[2020-01-22] MEDS: BUDESONIDE 0.5 MG/2 ML INHA INH SCH ×2 (07:00→21:00)
[2020-01-22] MEDS ORDERED: POTASSIUM CHLORIDE 20 MEQ TAB.ER.PRT PO ONE (08:00)
[2020-01-22] MEDS ORDERED: CARVEDILOL 12.5 MG TABLET PO SCH (09:00)
--- NOTE | 2020-01-22 09:21 | NUR ---
REC: Chopped/thin liquids Addendum: 01/22/20 at 0921 by Rula MELVIN Amended: Links added.
[2020-01-22] MEDS: FUROSEMIDE 20 MG/2 ML IV SCH ×2 (09:58→20:40)
[2020-01-22] MEDS: LACTOBACILLUS CHEW TABLET PO SCH ×3 (09:59→20:39)
[2020-01-22] MEDS: MULTIVITAMIN 1 TABLET PO SCH (09:59)
[2020-01-22] MEDS: SERTRALINE 100MG TABLET PO SCH (09:59)
[2020-01-22] MEDS: FOLIC ACID 1 MG TABLET PO SCH (09:59)
[2020-01-22] MEDS: THIAMINE 100MG TABLET PO SCH (09:59)
[2020-01-22] MEDS: METOLAZONE 5 MG TABLET PO SCH (09:59)
[2020-01-22] MEDS: SODIUM CHLORIDE FLUSH 10ML SYR IVF SCH ×2 (10:00→20:40)
[2020-01-22] MEDS: LISINOPRIL 10 MG TABLET PO SCH (10:00)
[2020-01-22 10:07] VITALS: BP 153/90
[2020-01-22 14:04] VITALS: BP 131/77
[2020-01-22 20:30] VITALS: BP 158/93
[2020-01-22] MEDS: QUETIAPINE 25MG TABLET PO SCH (20:39)
[2020-01-23 02:41] VITALS: BP 169/99
[2020-01-23] MEDS: PIPERACILLIN/TAZO/PMX 3.375GM 50 ML IV SCH ×2 (04:46→17:47)
[2020-01-23] MEDS: PANTOPRAZOLE 40MG TABLET PO SCH (04:46)
[2020-01-23 06:03] LABS: ALBUMIN 2.3 g/dL (3.4-5.0); ANION GAP 7 mmol/L (5-15); CHLORIDE 105 mmol/L (98-107)
[2020-01-23 06:06] LABS: CREATININE 1.47 mg/dL (0.7-1.3)
[2020-01-23 06:56] LABS: BASOPHILS # (AUTO) 0.07 x10^3/uL (0-0.1); BASOPHILS % (AUTO) 2 % (0-1); EOSINOPHILS % (AUTO) 3 % (1-7); LYMPHOCYTES # (AUTO) 0.96 x10^3/uL (1-3.4); LYMPHOCYTES % (AUTO) 28 % (22-44); MD NO; MEAN CORPUSCULAR HEMOGLOBIN 30.6 pg (27.5-34.5); MEAN CORPUSCULAR HGB CONC 32.9 g/dL (33.2-36.2); MEAN PLATELET VOLUME 8.4 fL (7.4-10.4); MONOCYTES % (AUTO) 9 % (2-9); NEUTROPHILS # (AUTO) 2.05 x10^3/uL (1.8-6.8); NEUTROPHILS % (AUTO) 59 % (42-75); PLATELET COUNT 130 x10^3/uL (130-400); RED BLOOD COUNT 2.86 x10^6/uL (4.38-5.82); RED CELL DISTRIBUTION WIDTH 16.8 % (9.4-14.8)
[2020-01-23 07:08] VITALS: BP 158/86
[2020-01-23] MEDS: ALBUTEROL/IPRATROPIUM 2.5MG/0.5MG, 3 ML NPPB SCH (08:00)
[2020-01-23] MEDS: BUDESONIDE 0.5 MG/2 ML INHA INH SCH ×2 (08:00→19:15)
[2020-01-23] MEDS ORDERED: MAGNESIUM SULFATE PMX 4GM/100M 100 ML IV ONE (08:30)
[2020-01-23] MEDS: POTASSIUM CHLORIDE 20 MEQ TAB.ER.PRT PO SCH ×2 (09:24→21:41)
[2020-01-23] MEDS: SERTRALINE 100MG TABLET PO SCH (09:24)
[2020-01-23] MEDS: LISINOPRIL 10 MG TABLET PO SCH (09:24)
[2020-01-23] MEDS ORDERED: NEOSPORIN OINT, 15GM ONE (13:52)
[2020-01-23] MEDS ORDERED: BUPIVACAINE/PF-EPI 0.5% 1:200K ONE (13:52)
[2020-01-23] MEDS ORDERED: TALC 4 GM VIAL INTRAPL ONE (13:52)
[2020-01-23] MEDS ORDERED: FENTANYL PF 250 MCG/5ML ONE (14:03)
[2020-01-23] MEDS ORDERED: ROCURONIUM 10MG/ML,5ML ONE (14:16)
[2020-01-23] MEDS ORDERED: CEFOTETAN 2 GM ONE (14:16)
[2020-01-23] MEDS ORDERED: SUCCINYLCHOLINE 20 MG/ML, 10ML ONE (14:16)
[2020-01-23] MEDS ORDERED: MIDAZOLAM 1 MG/ML, 2ML ONE (15:17)
[2020-01-23] MEDS: METOLAZONE 5 MG TABLET PO SCH (15:41)
[2020-01-23] MEDS: FOLIC ACID 1 MG TABLET PO SCH (15:41)
[2020-01-23] MEDS: FUROSEMIDE 20 MG/2 ML IV SCH ×2 (15:41→21:38)
[2020-01-23] MEDS: LACTOBACILLUS CHEW TABLET PO SCH ×3 (15:41→21:38)
[2020-01-23] MEDS: THIAMINE 100MG TABLET PO SCH (15:41)
[2020-01-23] MEDS: SODIUM CHLORIDE FLUSH 10ML SYR IVF SCH ×3 (15:41→21:36)
[2020-01-23] MEDS: MULTIVITAMIN 1 TABLET PO SCH (15:41)
[2020-01-23] MEDS: FERROUS SULFATE 325 MG TABLET PO SCH (15:42)
[2020-01-23] MEDS: ERGOCALCIFEROL 50,000 UNIT CAPSULE PO SCH (15:42)
[2020-01-23] MEDS ORDERED: PROPOFOL 100 ML IV ONE (15:59)
[2020-01-23] MEDS ORDERED: NOREPINEPHRINE 1 MG/ML, 4ML ONE (16:14)
[2020-01-23] MEDS ORDERED: SODIUM CHLORIDE 0.9% 1,000ML IVBOLUS ONE ×3 (16:30→21:00)
[2020-01-23] MEDS ORDERED: DEXAMETHASONE 4 MG/ML, 1ML ONE (17:00)
[2020-01-23] MEDS ORDERED: DEXAMETHASONE 4 MG/ML, 1ML IVPush ONE (17:00)
[2020-01-23] MEDS ORDERED: NOREPINEPHRINE 8 MG in SODIUM CHLORIDE 0.9% 242 ML IV PRN (17:05)
[2020-01-23] MEDS ORDERED: PROPOFOL 100 ML IV PRN (17:05)
[2020-01-23] MEDS: NOREPINEPHRINE 8 MG in SODIUM CHLORIDE 0.9% 242 ML IV PRN ×2 (17:05→21:58)
[2020-01-23] MEDS: PROPOFOL 100 ML IV PRN ×2 (17:06→18:37)
[2020-01-23] MEDS ORDERED: LACTULOSE 20 GM/30 ML UDC NG PRN (17:30)
[2020-01-23] MEDS ORDERED: SENNA/DOCUSATE TABLET NG PRN (17:30)
[2020-01-23] MEDS ORDERED: PHARMACY MAY ADJ FOR RENAL FX MC SCH (17:30)
[2020-01-23] MEDS ORDERED: LIDOCAINE-MPF 1%, 2ML ENDO PRN (17:30)
[2020-01-23] MEDS ORDERED: SENNA 176 MG/5 ML ORAL SOL NG PRN (17:30)
[2020-01-23] MEDS ORDERED: DEXTROSE 50%, 50ML SYRINGE IVPush PRN (17:30)
[2020-01-23] MEDS ORDERED: GLUCAGON 1 MG IM PRN (17:30)
[2020-01-23] MEDS ORDERED: ACETAMINOPHEN 650 MG/20.3 ML UDC PO/NG PRN (17:30)
[2020-01-23] MEDS ORDERED: BISACODYL 10 MG SUPP PR PRN (17:30)
[2020-01-23] MEDS ORDERED: DOCUSATE 50 MG/5 ML, 10ML UDC PO PRN (17:30)
[2020-01-23] MEDS ORDERED: LORazepam 2 MG/ML, 1ML IVPush PRN (17:30)
[2020-01-23] MEDS ORDERED: DEXTROSE 4 GM TAB.CHEW PO PRN (17:30)
[2020-01-23 17:39] LABS: BASOPHILS # (AUTO) 0.05 x10^3/uL (0-0.1); BASOPHILS % (AUTO) 1 % (0-1); EOSINOPHILS # (AUTO) 0.12 x10^3/uL (0-0.4); EOSINOPHILS % (AUTO) 2 % (1-7); LYMPHOCYTES # (AUTO) 1.41 x10^3/uL (1-3.4); LYMPHOCYTES % (AUTO) 28 % (22-44); MD NO; MEAN CORPUSCULAR HEMOGLOBIN 30.4 pg (27.5-34.5); MEAN CORPUSCULAR HGB CONC 32.6 g/dL (33.2-36.2); MEAN CORPUSCULAR VOLUME 93.3 fL (81-97); MEAN PLATELET VOLUME 8.4 fL (7.4-10.4); MONOCYTES # (AUTO) 0.26 x10^3/uL (0.2-0.8); MONOCYTES % (AUTO) 5 % (2-9); NEUTROPHILS # (AUTO) 3.19 x10^3/uL (1.8-6.8); NEUTROPHILS % (AUTO) 64 % (42-75); PLATELET COUNT 161 x10^3/uL (130-400); RED BLOOD COUNT 2.59 x10^6/uL (4.38-5.82); RED CELL DISTRIBUTION WIDTH 17.2 % (9.4-14.8)
[2020-01-23] MEDS: CARVEDILOL 25 MG TABLET PO SCH (17:46)
[2020-01-23 17:48] LABS: TRIGLYCERIDES 143 mg/dL (50-200)
[2020-01-23 17:52] LABS: TROPONIN I < 0.015 ng/mL (0.000-0.045)
[2020-01-23] MEDS: ALBUTEROL/IPRATROPIUM 2.5MG/0.5MG, 3 ML INLINE SCH ×2 (19:15→22:07)
[2020-01-23] MEDS: QUETIAPINE 25MG TABLET PO SCH (21:38)
[2020-01-23] MEDS: FENTANYL PF 100 MCG/2ML IVPush PRN (22:04)
[2020-01-24] MEDS: NOREPINEPHRINE 32 MG in SODIUM CHLORIDE 0.9% 218 ML IV PRN (00:20)
[2020-01-24] MEDS: FENTANYL PF 100 MCG/2ML IVPush PRN ×2 (00:56→02:06)
[2020-01-24] MEDS: ALBUTEROL/IPRATROPIUM 2.5MG/0.5MG, 3 ML INLINE SCH ×6 (01:30→21:30)
[2020-01-24] MEDS: PIPERACILLIN/TAZO/PMX 3.375GM 50 ML IV SCH ×3 (01:45→18:07)
[2020-01-24 02:51] LABS: TROPONIN I 0.019 ng/mL (0.000-0.045)
[2020-01-24 03:22] LABS: BASOPHILS % (AUTO) 0 % (0-1); EOSINOPHILS % (AUTO) 0 % (1-7); LYMPHOCYTES # (AUTO) 0.42 x10^3/uL (1-3.4); LYMPHOCYTES % (AUTO) 5 % (22-44); MD NO; MEAN CORPUSCULAR HGB CONC 32.1 g/dL (33.2-36.2); MEAN CORPUSCULAR VOLUME 93.6 fL (81-97); MEAN PLATELET VOLUME 8.5 fL (7.4-10.4); MONOCYTES % (AUTO) 2 % (2-9); NEUTROPHILS # (AUTO) 8.11 x10^3/uL (1.8-6.8); NEUTROPHILS % (AUTO) 93 % (42-75); PLATELET COUNT 183 x10^3/uL (130-400); RED BLOOD COUNT 2.51 x10^6/uL (4.38-5.82); RED CELL DISTRIBUTION WIDTH 16.8 % (9.4-14.8)
[2020-01-24 03:30] LABS: ALBUMIN 2.2 g/dL (3.4-5.0); ANION GAP 11 mmol/L (5-15); CALCIUM 7.3 mg/dL (8.5-10.1); CHLORIDE 111 mmol/L (98-107); CREATININE 2.36 mg/dL (0.7-1.3)
[2020-01-24] MEDS: PROPOFOL 100 ML IV PRN ×3 (03:33→19:17)
[2020-01-24] MEDS: PANTOPRAZOLE 40MG TABLET PO SCH (05:45)
[2020-01-24] MEDS: CARVEDILOL 25 MG TABLET PO SCH ×2 (05:47→17:44)
[2020-01-24] MEDS: BUDESONIDE 0.5 MG/2 ML INHA INH SCH ×2 (06:37→22:16)
[2020-01-24] MEDS ORDERED: POTASSIUM CHLORIDE 20 MEQ TAB.ER.PRT PO SCH (09:00)
[2020-01-24] MEDS: LISINOPRIL 10 MG TABLET PO SCH (09:00)
[2020-01-24] MEDS: THIAMINE 100MG TABLET PO SCH (09:00)
[2020-01-24] MEDS: FUROSEMIDE 20 MG/2 ML IV SCH (09:00)
[2020-01-24] MEDS: SODIUM CHLORIDE FLUSH 10ML SYR IVF SCH ×4 (09:00→21:00)
[2020-01-24] MEDS: LACTOBACILLUS CHEW TABLET PO SCH ×3 (09:24→20:24)
[2020-01-24] MEDS: SERTRALINE 100MG TABLET PO SCH (09:25)
[2020-01-24] MEDS: MULTIVITAMIN 1 TABLET PO SCH (09:25)
[2020-01-24] MEDS: FOLIC ACID 1 MG TABLET PO SCH (09:25)
[2020-01-24 14:34] LABS: ANION GAP 6 mmol/L (5-15); CALCIUM 7.3 mg/dL (8.5-10.1); CHLORIDE 112 mmol/L (98-107); CREATININE 2.69 mg/dL (0.7-1.3)
[2020-01-24] MEDS: QUETIAPINE 25MG TABLET PO SCH (20:24)
[2020-01-25] VITALS (8 sets, daily range): BP systolic 130–159; BP diastolic 69–86
[2020-01-25] MEDS: ALBUTEROL/IPRATROPIUM 2.5MG/0.5MG, 3 ML INLINE SCH ×2 (01:30→06:41)
[2020-01-25] MEDS: PIPERACILLIN/TAZO/PMX 3.375GM 50 ML IV SCH ×3 (01:40→18:38)
[2020-01-25] MEDS: PROPOFOL 100 ML IV PRN (01:44)
[2020-01-25] MEDS: NOREPINEPHRINE 32 MG in SODIUM CHLORIDE 0.9% 218 ML IV PRN (03:04)
[2020-01-25 03:43] LABS: ANION GAP 9 mmol/L (5-15); CHLORIDE 113 mmol/L (98-107); CREATININE 2.83 mg/dL (0.7-1.3)
[2020-01-25 05:17] LABS: MEAN CORPUSCULAR HEMOGLOBIN 30.3 pg (27.5-34.5); MEAN CORPUSCULAR HGB CONC 32.8 g/dL (33.2-36.2); MEAN CORPUSCULAR VOLUME 92.6 fL (81-97); PLATELET COUNT 151 x10^3/uL (130-400); RED BLOOD COUNT 1.78 x10^6/uL (4.38-5.82); RED CELL DISTRIBUTION WIDTH 16.9 % (9.4-14.8)
[2020-01-25] MEDS: CARVEDILOL 25 MG TABLET PO SCH ×2 (06:00→18:00)
[2020-01-25] MEDS ORDERED: PANTOPRAZOLE GRAN. PKT 40 MG PO SCH (06:00)
[2020-01-25] MEDS ORDERED: PANTOPRAZOLE 40MG TABLET GT SCH (06:00)
[2020-01-25 06:28] LABS: BASOPHILS % (AUTO) 0 % (0-1); EOSINOPHILS # (AUTO) 0.02 x10^3/uL (0-0.4); EOSINOPHILS % (AUTO) 0 % (1-7); LYMPHOCYTES # (AUTO) 1.11 x10^3/uL (1-3.4); LYMPHOCYTES % (AUTO) 17 % (22-44); MD SCAN; MONOCYTES # (AUTO) 0.45 x10^3/uL (0.2-0.8); MONOCYTES % (AUTO) 7 % (2-9); NEUTROPHILS % (AUTO) 75 % (42-75)
[2020-01-25] MEDS: BUDESONIDE 0.5 MG/2 ML INHA INH SCH ×2 (06:41→21:29)
[2020-01-25] MEDS ORDERED: MAGNESIUM SULFATE PMX 2GM/50ML 50 ML IV ONE (07:00)
[2020-01-25] MEDS: LACTOBACILLUS CHEW TABLET PO SCH ×3 (08:39→20:39)
[2020-01-25] MEDS: MULTIVITAMIN 1 TABLET PO SCH (08:39)
[2020-01-25] MEDS: FERROUS SULFATE 325 MG TABLET PO SCH (08:39)
[2020-01-25] MEDS: SERTRALINE 100MG TABLET PO SCH (08:40)
[2020-01-25] MEDS: THIAMINE 100MG TABLET PO SCH (08:40)
[2020-01-25] MEDS: FOLIC ACID 1 MG TABLET PO SCH (08:40)
[2020-01-25] MEDS: SODIUM CHLORIDE FLUSH 10ML SYR IVF SCH ×2 (08:40→21:00)
[2020-01-25] MEDS: ALBUTEROL/IPRATROPIUM 2.5MG/0.5MG, 3 ML NPPB SCH ×3 (09:40→21:28)
[2020-01-25] MEDS ORDERED: ALBUTEROL/IPRATROPIUM 2.5MG/0.5MG, 3 ML NPPB PRN (10:00)
[2020-01-25] MEDS ORDERED: morphine SULFATE 10 MG/ML, 1ML IV PRN (12:30)
[2020-01-25] MEDS ORDERED: HYDROmorphone 1 MG/ML, 1ML INJ IV PRN (12:30)
[2020-01-25] MEDS ORDERED: CEFAZOLIN PMX 1GM/50ML 50 ML IVPB SCH (12:30)
[2020-01-25] MEDS ORDERED: POTASSIUM CHLORIDE 20 MEQ in LACTATED RINGERS 1,000 ML IV SCH (12:30)
[2020-01-25] MEDS ORDERED: ONDANSETRON 2MG/ML, 2ML IV PRN (12:30)
[2020-01-25] MEDS ORDERED: SODIUM CHLORIDE 0.9% 1,000 ML IV SCH ×2 (19:30→19:33)
[2020-01-25] MEDS: QUETIAPINE 25MG TABLET PO SCH (20:40)
[2020-01-26] VITALS (7 sets, daily range): BP systolic 128–181; BP diastolic 77–97
[2020-01-26] MEDS: PIPERACILLIN/TAZO/PMX 3.375GM 50 ML IV SCH ×3 (01:43→18:35)
[2020-01-26 03:36] LABS: ALBUMIN 1.9 g/dL (3.4-5.0); ANION GAP 5 mmol/L (5-15); CALCIUM 7.6 mg/dL (8.5-10.1); CHLORIDE 117 mmol/L (98-107); CREATININE 2.08 mg/dL (0.7-1.3); TRIGLYCERIDES 123 mg/dL (50-200)
[2020-01-26 03:37] LABS: MEAN CORPUSCULAR HEMOGLOBIN 29.9 pg (27.5-34.5); MEAN CORPUSCULAR HGB CONC 32.8 g/dL (33.2-36.2); MEAN CORPUSCULAR VOLUME 91.3 fL (81-97); MEAN PLATELET VOLUME 8.6 fL (7.4-10.4); PLATELET COUNT 126 x10^3/uL (130-400); RED BLOOD COUNT 2.31 x10^6/uL (4.38-5.82); RED CELL DISTRIBUTION WIDTH 17.6 % (9.4-14.8)
[2020-01-26 03:51] LABS: BASOPHILS # (AUTO) 0.03 x10^3/uL (0-0.1); BASOPHILS % (AUTO) 1 % (0-1); EOSINOPHILS # (AUTO) 0.13 x10^3/uL (0-0.4); EOSINOPHILS % (AUTO) 2 % (1-7); LYMPHOCYTES # (AUTO) 1.11 x10^3/uL (1-3.4); LYMPHOCYTES % (AUTO) 20 % (22-44); MD MORPH REVIEW ONLY; MONOCYTES # (AUTO) 0.37 x10^3/uL (0.2-0.8); MONOCYTES % (AUTO) 7 % (2-9); NEUTROPHILS # (AUTO) 4.03 x10^3/uL (1.8-6.8); NEUTROPHILS % (AUTO) 71 % (42-75)
[2020-01-26 03:52] LABS: ANISOCYTOSIS 1+; ECHINOCYTES 1+; OVALOCYTES 1+; POLYCHROMASIA 1+; SCHISTOCYTES 1+
[2020-01-26 03:53] LABS: <PLATELET ESTIMATE> ADEQUATE; <PLT MORPHOLOGY> NORMAL PLT MORPH
[2020-01-26] MEDS: hydrALAzine 20 MG/ML, 1ML IV PRN (05:31)
[2020-01-26] MEDS: PANTOPRAZOLE 40MG TABLET PO SCH (05:57)
[2020-01-26] MEDS: CARVEDILOL 25 MG TABLET PO SCH ×2 (05:57→18:31)
[2020-01-26] MEDS ORDERED: ENOXAPARIN 40 MG/0.4 ML SQ SCH (06:00)
[2020-01-26] MEDS ORDERED: PANTOPRAZOLE 20MG TABLET PO SCH (06:00)
[2020-01-26] MEDS: ALBUTEROL/IPRATROPIUM 2.5MG/0.5MG, 3 ML NPPB SCH ×4 (07:00→19:05)
[2020-01-26 07:21] LABS: ALBUMIN 1.9 g/dL (3.4-5.0); BILIRUBIN, DIRECT 0.2 mg/dL (0.1-0.2)
[2020-01-26 07:23] LABS: BILIRUBIN,INDIRECT 0.1 mg/dL (0.0-2.0); BILIRUBIN,TOTAL 0.3 mg/dL (0.2-1.0)
[2020-01-26] MEDS: BUDESONIDE 0.5 MG/2 ML INHA INH SCH ×2 (08:58→19:05)
[2020-01-26] MEDS: THIAMINE 100MG TABLET PO SCH (09:00)
[2020-01-26] MEDS: LACTOBACILLUS CHEW TABLET PO SCH ×3 (09:32→20:55)
[2020-01-26] MEDS: FOLIC ACID 1 MG TABLET PO SCH (09:32)
[2020-01-26] MEDS: SERTRALINE 100MG TABLET PO SCH (09:33)
[2020-01-26] MEDS: SODIUM CHLORIDE FLUSH 10ML SYR IVF SCH ×2 (09:35→20:55)
[2020-01-26] MEDS: MULTIVITAMIN 1 TABLET PO SCH (11:09)
[2020-01-26] MEDS: QUETIAPINE 25MG TABLET PO SCH (20:55)
[2020-01-27 01:13] VITALS: BP 165/89
[2020-01-27] MEDS: PIPERACILLIN/TAZO/PMX 3.375GM 50 ML IV SCH ×3 (01:52→17:22)
[2020-01-27 03:34] LABS: ALBUMIN 2.1 g/dL (3.4-5.0); ANION GAP 4 mmol/L (5-15); CALCIUM 7.8 mg/dL (8.5-10.1); CHLORIDE 117 mmol/L (98-107)
[2020-01-27 03:35] LABS: CREATININE 1.74 mg/dL (0.7-1.3)
[2020-01-27 03:39] LABS: BASOPHILS # (AUTO) 0.03 x10^3/uL (0-0.1); BASOPHILS % (AUTO) 1 % (0-1); EOSINOPHILS # (AUTO) 0.29 x10^3/uL (0-0.4); EOSINOPHILS % (AUTO) 4 % (1-7); LYMPHOCYTES # (AUTO) 1.32 x10^3/uL (1-3.4); LYMPHOCYTES % (AUTO) 19 % (22-44); MD NO; MEAN CORPUSCULAR HEMOGLOBIN 29.8 pg (27.5-34.5); MEAN CORPUSCULAR HGB CONC 32.7 g/dL (33.2-36.2); MEAN CORPUSCULAR VOLUME 91.1 fL (81-97); MEAN PLATELET VOLUME 8.8 fL (7.4-10.4); MONOCYTES # (AUTO) 0.38 x10^3/uL (0.2-0.8); MONOCYTES % (AUTO) 5 % (2-9); NEUTROPHILS # (AUTO) 5.02 x10^3/uL (1.8-6.8); NEUTROPHILS % (AUTO) 71 % (42-75); PLATELET COUNT 151 x10^3/uL (130-400); RED BLOOD COUNT 2.76 x10^6/uL (4.38-5.82); RED CELL DISTRIBUTION WIDTH 17.7 % (9.4-14.8)
[2020-01-27] MEDS: CARVEDILOL 25 MG TABLET PO SCH (06:07)
[2020-01-27] MEDS: PANTOPRAZOLE 40MG TABLET PO SCH (06:07)
[2020-01-27] MEDS: BUDESONIDE 0.5 MG/2 ML INHA INH SCH ×2 (07:27→19:19)
[2020-01-27] MEDS: ALBUTEROL/IPRATROPIUM 2.5MG/0.5MG, 3 ML NPPB SCH ×3 (07:27→19:19)
[2020-01-27 07:39] VITALS: BP 179/95
[2020-01-27] MEDS: FOLIC ACID 1 MG TABLET PO SCH (08:19)
[2020-01-27] MEDS: LACTOBACILLUS CHEW TABLET PO SCH ×3 (08:20→20:53)
[2020-01-27] MEDS: SERTRALINE 100MG TABLET PO SCH (08:20)
[2020-01-27] MEDS: THIAMINE 100MG TABLET PO SCH (08:20)
[2020-01-27] MEDS: MULTIVITAMIN 1 TABLET PO SCH (08:20)
[2020-01-27] MEDS: FERROUS SULFATE 325 MG TABLET PO SCH (08:35)
[2020-01-27] MEDS: hydrALAzine 20 MG/ML, 1ML IV PRN (08:35)
[2020-01-27] MEDS: SODIUM CHLORIDE FLUSH 10ML SYR IVF SCH ×2 (08:35→20:53)
[2020-01-27] MEDS ORDERED: CARVEDILOL 6.25 MG TABLET PO ONE (11:00)
[2020-01-27 13:22] VITALS: BP 162/96
[2020-01-27] MEDS: CARVEDILOL 12.5 MG TABLET PO SCH (17:23)
[2020-01-27] MEDS: QUETIAPINE 25MG TABLET PO SCH (20:53)
[2020-01-27 21:11] VITALS: BP 169/74
[2020-01-28] MEDS: PIPERACILLIN/TAZO/PMX 3.375GM 50 ML IV SCH (01:53)
[2020-01-28 02:37] VITALS: BP 175/89
[2020-01-28] MEDS: hydrALAzine 20 MG/ML, 1ML IV PRN (02:58)
[2020-01-28 03:24] LABS: ANION GAP 6 mmol/L (5-15); CALCIUM 7.7 mg/dL (8.5-10.1); CHLORIDE 114 mmol/L (98-107); CREATININE 1.52 mg/dL (0.7-1.3)
[2020-01-28] MEDS: ALBUTEROL/IPRATROPIUM 2.5MG/0.5MG, 3 ML NPPB SCH ×4 (04:00→20:40)
[2020-01-28] MEDS: PANTOPRAZOLE 40MG TABLET PO SCH (05:49)
[2020-01-28] MEDS: CARVEDILOL 12.5 MG TABLET PO SCH ×2 (05:49→17:09)
[2020-01-28] MEDS ORDERED: MAGNESIUM SULFATE PMX 2GM/50ML 50 ML IV ONE (07:00)
[2020-01-28] MEDS: LACTOBACILLUS CHEW TABLET PO SCH ×3 (08:02→20:34)
[2020-01-28] MEDS: MULTIVITAMIN 1 TABLET PO SCH (08:02)
[2020-01-28] MEDS: FOLIC ACID 1 MG TABLET PO SCH (08:02)
[2020-01-28] MEDS: SERTRALINE 100MG TABLET PO SCH (08:02)
[2020-01-28] MEDS: THIAMINE 100MG TABLET PO SCH (08:03)
[2020-01-28] MEDS: BUDESONIDE 0.5 MG/2 ML INHA INH SCH ×2 (10:50→20:40)
[2020-01-28] MEDS: CEFTRIAXONE PMX 2GM/50ML 50 ML IV SCH (11:31)
[2020-01-28] MEDS: SODIUM CHLORIDE FLUSH 10ML SYR IVF SCH ×2 (11:32→20:34)
[2020-01-28 14:21] VITALS: BP 148/85
[2020-01-28 19:57] VITALS: BP 139/72
[2020-01-28] MEDS: QUETIAPINE 25MG TABLET PO SCH (20:34)
[2020-01-29 00:02] VITALS: BP 142/78
[2020-01-29 00:45] VITALS: BP 164/92
[2020-01-29] MEDS: ALBUTEROL/IPRATROPIUM 2.5MG/0.5MG, 3 ML NPPB SCH ×4 (03:00→20:58)
[2020-01-29 05:51] VITALS: BP 159/93
[2020-01-29] MEDS: PANTOPRAZOLE 40MG TABLET PO SCH (05:51)
[2020-01-29] MEDS: CARVEDILOL 12.5 MG TABLET PO SCH ×2 (05:51→17:32)
[2020-01-29 06:24] VITALS: BP 159/90
[2020-01-29] MEDS: MULTIVITAMIN 1 TABLET PO SCH (08:38)
[2020-01-29] MEDS: SODIUM CHLORIDE FLUSH 10ML SYR IVF SCH ×2 (08:39→21:00)
[2020-01-29] MEDS: SERTRALINE 100MG TABLET PO SCH (08:39)
[2020-01-29] MEDS: FOLIC ACID 1 MG TABLET PO SCH (08:39)
[2020-01-29] MEDS: FERROUS SULFATE 325 MG TABLET PO SCH (08:39)
[2020-01-29] MEDS: LACTOBACILLUS CHEW TABLET PO SCH ×3 (08:39→19:51)
[2020-01-29] MEDS: THIAMINE 100MG TABLET PO SCH (08:39)
[2020-01-29] MEDS: BUDESONIDE 0.5 MG/2 ML INHA INH SCH ×2 (08:50→20:58)
[2020-01-29] MEDS: CEFTRIAXONE PMX 2GM/50ML 50 ML IV SCH (10:34)
[2020-01-29] MEDS: GABAPENTIN 100 MG CAPSULE PO SCH ×2 (11:11→19:52)
[2020-01-29] MEDS: ALLOPURINOL 100 MG TABLET PO SCH (11:11)
[2020-01-29 11:30] LABS: ALANINE AMINOTRANSFERASE 31 U/L (12-78); ALBUMIN 2.2 g/dL (3.4-5.0); ANION GAP 5 mmol/L (5-15); CALCIUM 8.2 mg/dL (8.5-10.1); CHLORIDE 114 mmol/L (98-107); CREATININE 1.35 mg/dL (0.7-1.3)
[2020-01-29] MEDS ORDERED: AMLODIPINE 5 MG TABLET PO ONE (11:30)
[2020-01-29 11:33] LABS: ALKALINE PHOSPHATASE 60 U/L (45-117); BILIRUBIN,TOTAL 0.3 mg/dL (0.2-1.0)
[2020-01-29 11:34] LABS: BASOPHILS # (AUTO) 0.04 x10^3/uL (0-0.1); BASOPHILS % (AUTO) 1 % (0-1); EOSINOPHILS # (AUTO) 0.24 x10^3/uL (0-0.4); EOSINOPHILS % (AUTO) 4 % (1-7); LYMPHOCYTES # (AUTO) 0.81 x10^3/uL (1-3.4); LYMPHOCYTES % (AUTO) 14 % (22-44); MD NO; MEAN CORPUSCULAR HEMOGLOBIN 30.1 pg (27.5-34.5); MEAN CORPUSCULAR HGB CONC 32.4 g/dL (33.2-36.2); MEAN PLATELET VOLUME 7.9 fL (7.4-10.4); MONOCYTES # (AUTO) 0.45 x10^3/uL (0.2-0.8); MONOCYTES % (AUTO) 8 % (2-9); NEUTROPHILS # (AUTO) 4.38 x10^3/uL (1.8-6.8); NEUTROPHILS % (AUTO) 74 % (42-75); PLATELET COUNT 209 x10^3/uL (130-400); RED BLOOD COUNT 3.28 x10^6/uL (4.38-5.82)
[2020-01-29 12:05] VITALS: BP 159/77
[2020-01-29 19:03] VITALS: BP 143/83
[2020-01-29] MEDS: QUETIAPINE 25MG TABLET PO SCH (19:53)
[2020-01-30 00:14] VITALS: BP 136/80
[2020-01-30] MEDS: ALBUTEROL/IPRATROPIUM 2.5MG/0.5MG, 3 ML NPPB SCH ×4 (03:00→20:15)
[2020-01-30 05:03] LABS: BASOPHILS # (AUTO) 0.05 x10^3/uL (0-0.1); BASOPHILS % (AUTO) 1 % (0-1); EOSINOPHILS # (AUTO) 0.32 x10^3/uL (0-0.4); EOSINOPHILS % (AUTO) 6 % (1-7); LYMPHOCYTES % (AUTO) 21 % (22-44); MD NO; MEAN CORPUSCULAR HEMOGLOBIN 29.8 pg (27.5-34.5); MEAN CORPUSCULAR HGB CONC 32.7 g/dL (33.2-36.2); MEAN CORPUSCULAR VOLUME 91.2 fL (81-97); MEAN PLATELET VOLUME 8.1 fL (7.4-10.4); MONOCYTES # (AUTO) 0.57 x10^3/uL (0.2-0.8); MONOCYTES % (AUTO) 11 % (2-9); NEUTROPHILS # (AUTO) 3.31 x10^3/uL (1.8-6.8); NEUTROPHILS % (AUTO) 62 % (42-75); PLATELET COUNT 222 x10^3/uL (130-400); RED BLOOD COUNT 2.95 x10^6/uL (4.38-5.82); RED CELL DISTRIBUTION WIDTH 18.3 % (9.4-14.8)
[2020-01-30 05:16] LABS: ANION GAP 7 mmol/L (5-15); CALCIUM 8.3 mg/dL (8.5-10.1); CHLORIDE 114 mmol/L (98-107)
[2020-01-30 05:18] LABS: CREATININE 1.29 mg/dL (0.7-1.3)
[2020-01-30] MEDS: CARVEDILOL 12.5 MG TABLET PO SCH ×2 (05:37→17:18)
[2020-01-30] MEDS: PANTOPRAZOLE 40MG TABLET PO SCH (05:37)
[2020-01-30 06:33] VITALS: BP 147/72
[2020-01-30] MEDS: BUDESONIDE 0.5 MG/2 ML INHA INH SCH ×2 (07:20→20:18)
[2020-01-30] MEDS ORDERED: MORPHINE SULFATE 4 MG/ML, 1ML IV PRN (09:00)
[2020-01-30] MEDS ORDERED: REGADENOSON 0.4 MG/5 ML SYRINGE ONE (09:19)
[2020-01-30] MEDS ORDERED: FERROUS SULFATE 325 MG TABLET ONE (09:20)
[2020-01-30] MEDS: FUROSEMIDE 40 MG/4 ML IV SCH (09:24)
[2020-01-30] MEDS: POTASSIUM CHLORIDE 10 MEQ TABLET.ER PO SCH ×2 (09:25→20:18)
[2020-01-30] MEDS: FERROUS SULFATE 325 MG TABLET PO SCH ×2 (09:25→20:18)
[2020-01-30] MEDS: MULTIVITAMIN 1 TABLET PO SCH (09:26)
[2020-01-30] MEDS: GABAPENTIN 100 MG CAPSULE PO SCH ×2 (09:26→20:18)
[2020-01-30] MEDS: FOLIC ACID 1 MG TABLET PO SCH (09:27)
[2020-01-30] MEDS: LACTOBACILLUS CHEW TABLET PO SCH ×3 (09:27→20:18)
[2020-01-30] MEDS: SERTRALINE 100MG TABLET PO SCH (09:27)
[2020-01-30] MEDS: THIAMINE 100MG TABLET PO SCH (09:28)
[2020-01-30] MEDS: ALLOPURINOL 100 MG TABLET PO SCH (09:28)
[2020-01-30] MEDS: SODIUM CHLORIDE FLUSH 10ML SYR IVF SCH ×2 (09:29→20:18)
[2020-01-30] MEDS: CEFTRIAXONE PMX 2GM/50ML 50 ML IV SCH (10:37)
[2020-01-30 12:25] VITALS: BP 154/75
[2020-01-30] MEDS: ERGOCALCIFEROL 50,000 UNIT CAPSULE PO SCH (14:49)
[2020-01-30 18:55] VITALS: BP 149/72
[2020-01-30] MEDS: QUETIAPINE 25MG TABLET PO SCH (20:19)
[2020-01-30] MEDS: LORazepam 0.5MG TABLET PO PRN (20:26)
[2020-01-31 01:06] VITALS: BP 139/66
[2020-01-31] MEDS: ALBUTEROL/IPRATROPIUM 2.5MG/0.5MG, 3 ML NPPB SCH ×4 (03:00→21:00)
[2020-01-31] MEDS: CARVEDILOL 12.5 MG TABLET PO SCH ×2 (05:31→17:19)
[2020-01-31] MEDS: PANTOPRAZOLE 40MG TABLET PO SCH (05:31)
[2020-01-31 06:47] LABS: BASOPHILS # (AUTO) 0.02 x10^3/uL (0-0.1); BASOPHILS % (AUTO) 0 % (0-1); EOSINOPHILS # (AUTO) 0.04 x10^3/uL (0-0.4); EOSINOPHILS % (AUTO) 1 % (1-7); LYMPHOCYTES # (AUTO) 0.91 x10^3/uL (1-3.4); LYMPHOCYTES % (AUTO) 17 % (22-44); MD NO; MEAN CORPUSCULAR HEMOGLOBIN 30.8 pg (27.5-34.5); MEAN CORPUSCULAR HGB CONC 33.6 g/dL (33.2-36.2); MEAN CORPUSCULAR VOLUME 91.7 fL (81-97); MEAN PLATELET VOLUME 7.9 fL (7.4-10.4); MONOCYTES # (AUTO) 0.59 x10^3/uL (0.2-0.8); MONOCYTES % (AUTO) 11 % (2-9); NEUTROPHILS # (AUTO) 3.83 x10^3/uL (1.8-6.8); NEUTROPHILS % (AUTO) 71 % (42-75); PLATELET COUNT 244 x10^3/uL (130-400); RED BLOOD COUNT 2.89 x10^6/uL (4.38-5.82); RED CELL DISTRIBUTION WIDTH 18.5 % (9.4-14.8)
[2020-01-31 06:58] LABS: ANION GAP 5 mmol/L (5-15); CALCIUM 8.4 mg/dL (8.5-10.1); CHLORIDE 111 mmol/L (98-107); CREATININE 1.32 mg/dL (0.7-1.3)
[2020-01-31 07:09] VITALS: BP 163/74
[2020-01-31] MEDS: BUDESONIDE 0.5 MG/2 ML INHA INH SCH ×2 (09:00→21:00)
[2020-01-31] MEDS: GABAPENTIN 100 MG CAPSULE PO SCH ×2 (09:00→20:05)
[2020-01-31] MEDS: THIAMINE 100MG TABLET PO SCH (09:00)
[2020-01-31] MEDS: SODIUM CHLORIDE FLUSH 10ML SYR IVF SCH ×2 (09:00→20:06)
[2020-01-31] MEDS: LACTOBACILLUS CHEW TABLET PO SCH ×3 (09:14→20:05)
[2020-01-31] MEDS: SERTRALINE 100MG TABLET PO SCH (09:14)
[2020-01-31] MEDS: MULTIVITAMIN 1 TABLET PO SCH (09:14)
[2020-01-31] MEDS: FUROSEMIDE 40 MG/4 ML IV SCH (09:14)
[2020-01-31] MEDS: FOLIC ACID 1 MG TABLET PO SCH (09:15)
[2020-01-31] MEDS: POTASSIUM CHLORIDE 10 MEQ TABLET.ER PO SCH ×2 (09:15→20:05)
[2020-01-31] MEDS: FERROUS SULFATE 325 MG TABLET PO SCH ×2 (09:15→20:05)
[2020-01-31] MEDS: ALLOPURINOL 100 MG TABLET PO SCH (09:16)
[2020-01-31] MEDS: CEFTRIAXONE PMX 2GM/50ML 50 ML IV SCH (10:33)
[2020-01-31 13:40] VITALS: BP 171/91
[2020-01-31 19:14] VITALS: BP 145/78
[2020-01-31] MEDS: QUETIAPINE 25MG TABLET PO SCH (20:05)
[2020-02-01 02:13] VITALS: BP 156/86
[2020-02-01] MEDS: ALBUTEROL/IPRATROPIUM 2.5MG/0.5MG, 3 ML NPPB SCH ×4 (03:26→20:45)
[2020-02-01 05:06] LABS: BASOPHILS # (AUTO) 0.04 x10^3/uL (0-0.1); BASOPHILS % (AUTO) 1 % (0-1); EOSINOPHILS # (AUTO) 0.17 x10^3/uL (0-0.4); EOSINOPHILS % (AUTO) 3 % (1-7); LYMPHOCYTES # (AUTO) 1.25 x10^3/uL (1-3.4); LYMPHOCYTES % (AUTO) 24 % (22-44); MD NO; MEAN CORPUSCULAR HEMOGLOBIN 29.9 pg (27.5-34.5); MEAN CORPUSCULAR HGB CONC 32.6 g/dL (33.2-36.2); MEAN CORPUSCULAR VOLUME 91.7 fL (81-97); MEAN PLATELET VOLUME 7.6 fL (7.4-10.4); MONOCYTES # (AUTO) 0.73 x10^3/uL (0.2-0.8); MONOCYTES % (AUTO) 14 % (2-9); NEUTROPHILS # (AUTO) 2.98 x10^3/uL (1.8-6.8); NEUTROPHILS % (AUTO) 58 % (42-75); PLATELET COUNT 250 x10^3/uL (130-400)
[2020-02-01 05:15] LABS: ANION GAP 5 mmol/L (5-15); CALCIUM 8.4 mg/dL (8.5-10.1); CHLORIDE 109 mmol/L (98-107); CREATININE 1.25 mg/dL (0.7-1.3)
[2020-02-01 06:18] VITALS: BP 146/77
[2020-02-01] MEDS: CARVEDILOL 12.5 MG TABLET PO SCH ×2 (06:20→18:22)
[2020-02-01] MEDS: PANTOPRAZOLE 40MG TABLET PO SCH (06:20)
[2020-02-01] MEDS: BUDESONIDE 0.5 MG/2 ML INHA INH SCH ×2 (09:35→20:45)
[2020-02-01] MEDS: POTASSIUM CHLORIDE 10 MEQ TABLET.ER PO SCH ×2 (10:09→20:21)
[2020-02-01] MEDS: MULTIVITAMIN 1 TABLET PO SCH (10:09)
[2020-02-01] MEDS: LACTOBACILLUS CHEW TABLET PO SCH ×3 (10:09→20:21)
[2020-02-01] MEDS: FOLIC ACID 1 MG TABLET PO SCH (10:09)
[2020-02-01] MEDS: ALLOPURINOL 100 MG TABLET PO SCH (10:09)
[2020-02-01] MEDS: SERTRALINE 100MG TABLET PO SCH (10:09)
[2020-02-01] MEDS: FERROUS SULFATE 325 MG TABLET PO SCH ×2 (10:10→20:21)
[2020-02-01] MEDS: FUROSEMIDE 40 MG/4 ML IV SCH (10:10)
[2020-02-01] MEDS: GABAPENTIN 100 MG CAPSULE PO SCH ×2 (10:10→20:21)
[2020-02-01] MEDS: SODIUM CHLORIDE FLUSH 10ML SYR IVF SCH ×2 (10:10→21:00)
[2020-02-01] MEDS: THIAMINE 100MG TABLET PO SCH (10:11)
[2020-02-01] MEDS: CEFTRIAXONE PMX 2GM/50ML 50 ML IV SCH (10:32)
[2020-02-01] MEDS ORDERED: LIDOCAINE 1%, 10ML ONE (13:08)
[2020-02-01 13:50] VITALS: BP 163/91
[2020-02-01 18:19] VITALS: BP 147/81
[2020-02-01] MEDS: QUETIAPINE 25MG TABLET PO SCH (20:21)
[2020-02-02 00:51] VITALS: BP 145/87
[2020-02-02] MEDS: ALBUTEROL/IPRATROPIUM 2.5MG/0.5MG, 3 ML NPPB SCH ×2 (02:29→09:00)
[2020-02-02 05:50] VITALS: BP 159/91
[2020-02-02] MEDS: PANTOPRAZOLE 40MG TABLET PO SCH (05:53)
[2020-02-02] MEDS: CARVEDILOL 12.5 MG TABLET PO SCH ×2 (05:53→18:25)
[2020-02-02 06:25] LABS: MEAN CORPUSCULAR HEMOGLOBIN 30.3 pg (27.5-34.5); MEAN CORPUSCULAR HGB CONC 32.8 g/dL (33.2-36.2); MEAN CORPUSCULAR VOLUME 92.3 fL (81-97); MEAN PLATELET VOLUME 7.8 fL (7.4-10.4); PLATELET COUNT 269 x10^3/uL (130-400); RED BLOOD COUNT 2.96 x10^6/uL (4.38-5.82)
[2020-02-02 06:28] LABS: MD YES
[2020-02-02 06:29] LABS: ANION GAP 5 mmol/L (5-15); CALCIUM 8.4 mg/dL (8.5-10.1); CHLORIDE 108 mmol/L (98-107)
[2020-02-02 06:44] LABS: BAND#(MANUAL) 0.05 x10^3/uL; BANDS%(MANUAL) 1 % (0-7); LYMPH#(MANUAL) 1.54 x10^3/uL (1-3.4); LYMPHS% (MANUAL) 29 % (22-44); MONOS% (MANUAL) 13 % (2-9); SEG#(MANUAL) 2.65 x10^3/uL (1.8-6.8); SEGS% (MANUAL) 50 % (42-75)
[2020-02-02 06:45] LABS: ANISOCYTOSIS 1+; EOS#(MANUAL) 0.37 x10^3/uL (0.0-0.4); EOS% (MANUAL) 7 % (1-7); MONOS#(MANUAL) 0.69 x10^3/uL (0.3-2.7); OVALOCYTES 1+
[2020-02-02 06:46] LABS: <PLATELET ESTIMATE> ADEQUATE; <PLT MORPHOLOGY> NORMAL PLT MORPH; HYPOCHROMIA 1+
[2020-02-02 08:20] VITALS: BP 152/85
[2020-02-02] MEDS: BUDESONIDE 0.5 MG/2 ML INHA INH SCH ×2 (09:00→21:00)
[2020-02-02] MEDS: MULTIVITAMIN 1 TABLET PO SCH (09:30)
[2020-02-02] MEDS: FOLIC ACID 1 MG TABLET PO SCH (09:30)
[2020-02-02] MEDS: GABAPENTIN 100 MG CAPSULE PO SCH ×2 (09:30→20:03)
[2020-02-02] MEDS: LACTOBACILLUS CHEW TABLET PO SCH ×3 (09:30→20:03)
[2020-02-02] MEDS: SERTRALINE 100MG TABLET PO SCH (09:30)
[2020-02-02] MEDS: POTASSIUM CHLORIDE 10 MEQ TABLET.ER PO SCH ×2 (09:30→20:03)
[2020-02-02] MEDS: ALLOPURINOL 100 MG TABLET PO SCH (09:30)
[2020-02-02] MEDS: FERROUS SULFATE 325 MG TABLET PO SCH ×2 (09:30→20:03)
[2020-02-02] MEDS: FUROSEMIDE 40 MG/4 ML IV SCH (09:30)
[2020-02-02] MEDS: THIAMINE 100MG TABLET PO SCH (09:31)
[2020-02-02] MEDS: SODIUM CHLORIDE FLUSH 10ML SYR IVF SCH ×2 (09:31→20:03)
[2020-02-02] MEDS: CEFTRIAXONE PMX 2GM/50ML 50 ML IV SCH (10:25)
[2020-02-02 14:16] VITALS: BP 166/96
[2020-02-02] MEDS ORDERED: QUET25TA7 PO (17:52)
[2020-02-02] MEDS ORDERED: GABA-826 PO ×2 (17:52)
[2020-02-02] MEDS ORDERED: POTA10TA5 PO (17:52)
[2020-02-02] MEDS ORDERED: MULT1TAB60 PO (17:52)
[2020-02-02] MEDS ORDERED: PANT40TA5 PO (17:52)
[2020-02-02] MEDS ORDERED: FERR-51 PO (17:52)
[2020-02-02] MEDS ORDERED: SERT100T32 PO (17:52)
[2020-02-02] MEDS ORDERED: FURO40TA6 PO (17:52)
[2020-02-02] MEDS ORDERED: CARV6.2512 PO ×2 (18:02)
[2020-02-02 18:13] VITALS: BP 168/92
[2020-02-02 19:00] VITALS: BP 138/81
[2020-02-02] MEDS: QUETIAPINE 25MG TABLET PO SCH (20:03)
[2020-02-03 01:02] VITALS: BP 142/78
[2020-02-03 06:21] VITALS: BP 149/84
[2020-02-03] MEDS: PANTOPRAZOLE 40MG TABLET PO SCH (06:22)
[2020-02-03] MEDS: CARVEDILOL 12.5 MG TABLET PO SCH ×2 (06:22→17:44)
[2020-02-03] MEDS: LACTOBACILLUS CHEW TABLET PO SCH ×3 (08:59→21:08)
[2020-02-03] MEDS: FERROUS SULFATE 325 MG TABLET PO SCH ×2 (09:00→21:08)
[2020-02-03] MEDS: THIAMINE 100MG TABLET PO SCH (09:00)
[2020-02-03] MEDS: GABAPENTIN 100 MG CAPSULE PO SCH ×2 (09:00→21:08)
[2020-02-03] MEDS: BUDESONIDE 0.5 MG/2 ML INHA INH SCH ×2 (09:00→21:00)
[2020-02-03] MEDS: POTASSIUM CHLORIDE 10 MEQ TABLET.ER PO SCH ×2 (09:00→21:08)
[2020-02-03] MEDS: MULTIVITAMIN 1 TABLET PO SCH (09:00)
[2020-02-03] MEDS: FOLIC ACID 1 MG TABLET PO SCH (09:00)
[2020-02-03] MEDS: ALLOPURINOL 100 MG TABLET PO SCH (09:00)
[2020-02-03] MEDS: SERTRALINE 100MG TABLET PO SCH (09:00)
[2020-02-03] MEDS: FUROSEMIDE 40 MG/4 ML IV SCH (09:01)
[2020-02-03] MEDS: CEFTRIAXONE PMX 2GM/50ML 50 ML IV SCH (09:01)
[2020-02-03 12:17] VITALS: BP 149/88
[2020-02-03] MEDS: SODIUM CHLORIDE FLUSH 10ML SYR IVF SCH ×2 (16:09→21:08)
[2020-02-03 17:42] VITALS: BP 160/89
[2020-02-03 18:40] VITALS: BP 146/85
[2020-02-03] MEDS: QUETIAPINE 25MG TABLET PO SCH (21:08)
[2020-02-04 00:16] VITALS: BP 139/77
[2020-02-04 05:44] LABS: MEAN CORPUSCULAR HEMOGLOBIN 30.1 pg (27.5-34.5); MEAN CORPUSCULAR HGB CONC 33.2 g/dL (33.2-36.2); MEAN CORPUSCULAR VOLUME 90.8 fL (81-97); MEAN PLATELET VOLUME 7.9 fL (7.4-10.4); PLATELET COUNT 297 x10^3/uL (130-400); RED CELL DISTRIBUTION WIDTH 17.8 % (9.4-14.8)
[2020-02-04 05:48] LABS: ALBUMIN 2.4 g/dL (3.4-5.0); ANION GAP 5 mmol/L (5-15); CALCIUM 9.2 mg/dL (8.5-10.1); CHLORIDE 105 mmol/L (98-107); CREATININE 1.22 mg/dL (0.7-1.3)
[2020-02-04 05:50] VITALS: BP 152/81
[2020-02-04] MEDS: PANTOPRAZOLE 40MG TABLET PO SCH (05:53)
[2020-02-04] MEDS: CARVEDILOL 12.5 MG TABLET PO SCH ×2 (05:53→17:19)
[2020-02-04 06:28] LABS: BASOPHILS # (AUTO) 0.05 x10^3/uL (0-0.1); BASOPHILS % (AUTO) 1 % (0-1); EOSINOPHILS # (AUTO) 0.14 x10^3/uL (0-0.4); EOSINOPHILS % (AUTO) 2 % (1-7); LYMPHOCYTES # (AUTO) 1.47 x10^3/uL (1-3.4); LYMPHOCYTES % (AUTO) 26 % (22-44); MD SCAN; MONOCYTES # (AUTO) 1.02 x10^3/uL (0.2-0.8); MONOCYTES % (AUTO) 18 % (2-9); NEUTROPHILS # (AUTO) 3.01 x10^3/uL (1.8-6.8); NEUTROPHILS % (AUTO) 53 % (42-75)
[2020-02-04 07:20] VITALS: BP 127/81
[2020-02-04] MEDS: GABAPENTIN 100 MG CAPSULE PO SCH ×2 (08:42→21:40)
[2020-02-04] MEDS: FOLIC ACID 1 MG TABLET PO SCH (08:42)
[2020-02-04] MEDS: SERTRALINE 100MG TABLET PO SCH (08:42)
[2020-02-04] MEDS: FUROSEMIDE 40 MG/4 ML IV SCH (08:42)
[2020-02-04] MEDS: ALLOPURINOL 100 MG TABLET PO SCH (08:42)
[2020-02-04] MEDS: POTASSIUM CHLORIDE 10 MEQ TABLET.ER PO SCH ×2 (08:42→21:40)
[2020-02-04] MEDS: SODIUM CHLORIDE FLUSH 10ML SYR IVF SCH ×2 (08:42→21:40)
[2020-02-04] MEDS: LACTOBACILLUS CHEW TABLET PO SCH ×3 (08:42→21:40)
[2020-02-04] MEDS: THIAMINE 100MG TABLET PO SCH (08:42)
[2020-02-04] MEDS: FERROUS SULFATE 325 MG TABLET PO SCH ×2 (08:42→21:40)
[2020-02-04] MEDS: MULTIVITAMIN 1 TABLET PO SCH (08:42)
[2020-02-04] MEDS: BUDESONIDE 0.5 MG/2 ML INHA INH SCH ×2 (09:50→20:48)
[2020-02-04] MEDS: CEFTRIAXONE PMX 2GM/50ML 50 ML IV SCH (10:25)
[2020-02-04 14:18] VITALS: BP 147/87
[2020-02-04 18:50] VITALS: BP 152/85
[2020-02-04] MEDS: QUETIAPINE 25MG TABLET PO SCH (21:40)
[2020-02-05 01:04] VITALS: BP 136/77
[2020-02-05 05:08] VITALS: BP 123/71
[2020-02-05] MEDS: CARVEDILOL 12.5 MG TABLET PO SCH ×2 (05:13→17:10)
[2020-02-05] MEDS: PANTOPRAZOLE 40MG TABLET PO SCH (05:13)
[2020-02-05 06:23] LABS: ANION GAP 7 mmol/L (5-15); CHLORIDE 104 mmol/L (98-107)
[2020-02-05 07:53] VITALS: BP 103/63
[2020-02-05] MEDS: LACTOBACILLUS CHEW TABLET PO SCH ×3 (08:20→20:02)
[2020-02-05] MEDS: FERROUS SULFATE 325 MG TABLET PO SCH ×2 (08:20→20:02)
[2020-02-05] MEDS: POTASSIUM CHLORIDE 10 MEQ TABLET.ER PO SCH ×2 (08:20→20:02)
[2020-02-05] MEDS: FUROSEMIDE 40 MG/4 ML IV SCH (08:20)
[2020-02-05] MEDS: ALLOPURINOL 100 MG TABLET PO SCH (08:20)
[2020-02-05] MEDS: FOLIC ACID 1 MG TABLET PO SCH (08:20)
[2020-02-05] MEDS: GABAPENTIN 100 MG CAPSULE PO SCH ×2 (08:20→20:05)
[2020-02-05] MEDS: THIAMINE 100MG TABLET PO SCH (08:20)
[2020-02-05] MEDS: MULTIVITAMIN 1 TABLET PO SCH (08:20)
[2020-02-05] MEDS: SODIUM CHLORIDE FLUSH 10ML SYR IVF SCH ×2 (08:21→20:03)
[2020-02-05] MEDS: SERTRALINE 100MG TABLET PO SCH (08:21)
[2020-02-05] MEDS: BUDESONIDE 0.5 MG/2 ML INHA INH SCH ×2 (09:30→19:32)
[2020-02-05] MEDS: CEFTRIAXONE PMX 2GM/50ML 50 ML IV SCH (10:41)
[2020-02-05 14:00] VITALS: BP 125/68
[2020-02-05 19:30] VITALS: BP 128/74
[2020-02-05] MEDS: QUETIAPINE 25MG TABLET PO SCH (20:02)
[2020-02-06 01:09] VITALS: BP 127/68
[2020-02-06 05:27] VITALS: BP 145/83
[2020-02-06] MEDS: CARVEDILOL 12.5 MG TABLET PO SCH ×2 (05:30→18:10)
[2020-02-06] MEDS: PANTOPRAZOLE 40MG TABLET PO SCH (05:30)
[2020-02-06 06:16] LABS: ANION GAP 5 mmol/L (5-15); CHLORIDE 103 mmol/L (98-107); CREATININE 1.33 mg/dL (0.7-1.3)
[2020-02-06 06:17] LABS: BASOPHILS # (AUTO) 0.03 x10^3/uL (0-0.1); BASOPHILS % (AUTO) 1 % (0-1); EOSINOPHILS # (AUTO) 0.12 x10^3/uL (0-0.4); EOSINOPHILS % (AUTO) 2 % (1-7); LYMPHOCYTES % (AUTO) 27 % (22-44); MD NO; MEAN CORPUSCULAR HEMOGLOBIN 30.5 pg (27.5-34.5); MEAN CORPUSCULAR HGB CONC 33.3 g/dL (33.2-36.2); MEAN CORPUSCULAR VOLUME 91.5 fL (81-97); MEAN PLATELET VOLUME 8.4 fL (7.4-10.4); MONOCYTES # (AUTO) 0.76 x10^3/uL (0.2-0.8); MONOCYTES % (AUTO) 14 % (2-9); NEUTROPHILS # (AUTO) 3.23 x10^3/uL (1.8-6.8); NEUTROPHILS % (AUTO) 57 % (42-75); PLATELET COUNT 290 x10^3/uL (130-400)
[2020-02-06 07:04] VITALS: BP 113/50
[2020-02-06] MEDS: MULTIVITAMIN 1 TABLET PO SCH (08:21)
[2020-02-06] MEDS: SERTRALINE 100MG TABLET PO SCH (08:21)
[2020-02-06] MEDS: FOLIC ACID 1 MG TABLET PO SCH (08:21)
[2020-02-06] MEDS: LACTOBACILLUS CHEW TABLET PO SCH ×3 (08:21→20:12)
[2020-02-06] MEDS: GABAPENTIN 100 MG CAPSULE PO SCH ×2 (08:22→20:12)
[2020-02-06] MEDS: FERROUS SULFATE 325 MG TABLET PO SCH ×2 (08:22→20:12)
[2020-02-06] MEDS: ALLOPURINOL 100 MG TABLET PO SCH (08:22)
[2020-02-06] MEDS: THIAMINE 100MG TABLET PO SCH (08:22)
[2020-02-06] MEDS: SODIUM CHLORIDE FLUSH 10ML SYR IVF SCH ×2 (08:24→20:11)
[2020-02-06] MEDS: POTASSIUM CHLORIDE 10 MEQ TABLET.ER PO SCH ×2 (08:24→20:12)
[2020-02-06] MEDS: FUROSEMIDE 40 MG/4 ML IV SCH (08:24)
[2020-02-06] MEDS: BUDESONIDE 0.5 MG/2 ML INHA INH SCH ×2 (09:50→19:16)
[2020-02-06] MEDS: CEFTRIAXONE PMX 2GM/50ML 50 ML IV SCH (10:58)
[2020-02-06] MEDS ORDERED: MAGNESIUM SULFATE PMX 2GM/50ML 50 ML IV ONE (12:30)
[2020-02-06 12:43] VITALS: BP 121/61
[2020-02-06] MEDS: ERGOCALCIFEROL 50,000 UNIT CAPSULE PO SCH (12:52)
[2020-02-06 19:16] VITALS: BP 130/73
[2020-02-06] MEDS: QUETIAPINE 25MG TABLET PO SCH (20:12)
[2020-02-07 00:28] VITALS: BP 113/67
[2020-02-07 05:21] VITALS: BP 136/82
[2020-02-07] MEDS: PANTOPRAZOLE 40MG TABLET PO SCH (05:22)
[2020-02-07] MEDS: CARVEDILOL 12.5 MG TABLET PO SCH ×2 (05:23→17:20)
[2020-02-07 05:52] LABS: BASOPHILS # (AUTO) 0.01 x10^3/uL (0-0.1); BASOPHILS % (AUTO) 0 % (0-1); EOSINOPHILS # (AUTO) 0.05 x10^3/uL (0-0.4); EOSINOPHILS % (AUTO) 1 % (1-7); LYMPHOCYTES # (AUTO) 1.39 x10^3/uL (1-3.4); LYMPHOCYTES % (AUTO) 26 % (22-44); MD NO; MEAN CORPUSCULAR HEMOGLOBIN 29.7 pg (27.5-34.5); MEAN CORPUSCULAR HGB CONC 32.4 g/dL (33.2-36.2); MEAN CORPUSCULAR VOLUME 91.7 fL (81-97); MEAN PLATELET VOLUME 7.6 fL (7.4-10.4); MONOCYTES # (AUTO) 0.73 x10^3/uL (0.2-0.8); MONOCYTES % (AUTO) 14 % (2-9); NEUTROPHILS # (AUTO) 3.17 x10^3/uL (1.8-6.8); NEUTROPHILS % (AUTO) 59 % (42-75); PLATELET COUNT 295 x10^3/uL (130-400); RED BLOOD COUNT 3.12 x10^6/uL (4.38-5.82); RED CELL DISTRIBUTION WIDTH 17.9 % (9.4-14.8)
[2020-02-07 05:56] LABS: ANION GAP 8 mmol/L (5-15); CALCIUM 8.9 mg/dL (8.5-10.1); CHLORIDE 105 mmol/L (98-107)
[2020-02-07 06:08] LABS: CREATININE 1.31 mg/dL (0.7-1.3); FREE T4 (FREE THYROXINE) 0.88 ng/dL (0.76-1.46)
[2020-02-07 06:47] VITALS: BP 103/60
[2020-02-07] MEDS: BUDESONIDE 0.5 MG/2 ML INHA INH SCH ×2 (07:45→19:58)
[2020-02-07] MEDS: FERROUS SULFATE 325 MG TABLET PO SCH ×2 (09:21→20:10)
[2020-02-07] MEDS: LACTOBACILLUS CHEW TABLET PO SCH ×3 (09:21→20:10)
[2020-02-07] MEDS: ALLOPURINOL 100 MG TABLET PO SCH (09:21)
[2020-02-07] MEDS: FUROSEMIDE 40 MG/4 ML IV SCH (09:21)
[2020-02-07] MEDS: FOLIC ACID 1 MG TABLET PO SCH (09:21)
[2020-02-07] MEDS: SERTRALINE 100MG TABLET PO SCH (09:21)
[2020-02-07] MEDS: MULTIVITAMIN 1 TABLET PO SCH (09:21)
[2020-02-07] MEDS: THIAMINE 100MG TABLET PO SCH (09:22)
[2020-02-07] MEDS: GABAPENTIN 100 MG CAPSULE PO SCH ×2 (09:22→20:10)
[2020-02-07] MEDS: POTASSIUM CHLORIDE 10 MEQ TABLET.ER PO SCH ×2 (09:22→20:10)
[2020-02-07] MEDS: SODIUM CHLORIDE FLUSH 10ML SYR IVF SCH ×2 (09:23→20:10)
[2020-02-07] MEDS: CEFTRIAXONE PMX 2GM/50ML 50 ML IV SCH (11:07)
[2020-02-07 12:20] VITALS: BP 134/79
[2020-02-07 18:55] VITALS: BP 127/84
[2020-02-07] MEDS: QUETIAPINE 25MG TABLET PO SCH (20:10)
[2020-02-08 00:02] VITALS: BP 152/94
[2020-02-08] MEDS: PANTOPRAZOLE 40MG TABLET PO SCH (05:38)
[2020-02-08] MEDS: CARVEDILOL 12.5 MG TABLET PO SCH ×2 (05:39→18:16)
[2020-02-08 07:30] VITALS: BP 106/69
[2020-02-08] MEDS: BUDESONIDE 0.5 MG/2 ML INHA INH SCH ×2 (09:00→20:57)
[2020-02-08] MEDS: FUROSEMIDE 40 MG/4 ML IV SCH (09:24)
[2020-02-08] MEDS: FOLIC ACID 1 MG TABLET PO SCH (09:25)
[2020-02-08] MEDS: POTASSIUM CHLORIDE 10 MEQ TABLET.ER PO SCH ×2 (09:25→21:18)
[2020-02-08] MEDS: SERTRALINE 100MG TABLET PO SCH (09:25)
[2020-02-08] MEDS: LACTOBACILLUS CHEW TABLET PO SCH ×3 (09:25→21:18)
[2020-02-08] MEDS: ALLOPURINOL 100 MG TABLET PO SCH (09:25)
[2020-02-08] MEDS: SODIUM CHLORIDE FLUSH 10ML SYR IVF SCH ×2 (09:25→21:00)
[2020-02-08] MEDS: MULTIVITAMIN 1 TABLET PO SCH (09:26)
[2020-02-08] MEDS: GABAPENTIN 100 MG CAPSULE PO SCH ×2 (09:26→21:19)
[2020-02-08] MEDS: FERROUS SULFATE 325 MG TABLET PO SCH ×2 (09:26→21:18)
[2020-02-08] MEDS: THIAMINE 100MG TABLET PO SCH (09:26)
[2020-02-08] MEDS: CEFTRIAXONE PMX 2GM/50ML 50 ML IV SCH (11:10)
[2020-02-08] MEDS ORDERED: CARV12.52 PO (12:17)
[2020-02-08] MEDS ORDERED: CEFT2PIG2 INJ (12:17)
[2020-02-08 16:30] LABS: BASOPHILS # (AUTO) 0.02 x10^3/uL (0-0.1); BASOPHILS % (AUTO) 0 % (0-1); EOSINOPHILS % (AUTO) 0 % (1-7); LYMPHOCYTES # (AUTO) 0.33 x10^3/uL (1-3.4); LYMPHOCYTES % (AUTO) 5 % (22-44); MD NO; MEAN CORPUSCULAR HEMOGLOBIN 29.1 pg (27.5-34.5); MEAN CORPUSCULAR HGB CONC 32.1 g/dL (33.2-36.2); MEAN CORPUSCULAR VOLUME 90.8 fL (81-97); MONOCYTES # (AUTO) 0.29 x10^3/uL (0.2-0.8); MONOCYTES % (AUTO) 4 % (2-9); NEUTROPHILS % (AUTO) 90 % (42-75); PLATELET COUNT 254 x10^3/uL (130-400); RED BLOOD COUNT 3.27 x10^6/uL (4.38-5.82); RED CELL DISTRIBUTION WIDTH 17.5 % (9.4-14.8)
[2020-02-08 16:32] LABS: HCT (SEDRATE) 29.7 % (39.2-51.8)
[2020-02-08 19:00] VITALS: BP 118/74
[2020-02-08] MEDS: QUETIAPINE 25MG TABLET PO SCH (21:18)
[2020-02-09] MEDS: CEFTRIAXONE PMX 2GM/50ML 50 ML IV SCH ×3 (00:05→23:08)
[2020-02-09 00:30] VITALS: BP 109/65
[2020-02-09] MEDS: CARVEDILOL 12.5 MG TABLET PO SCH ×2 (05:04→18:24)
[2020-02-09] MEDS: PANTOPRAZOLE 40MG TABLET PO SCH (05:05)
[2020-02-09 07:02] VITALS: BP 106/65
[2020-02-09] MEDS ORDERED: SODIUM CHLORIDE 0.9% 1,000 ML IV SCH (07:30)
[2020-02-09 08:34] LABS: BASOPHILS # (AUTO) 0.01 x10^3/uL (0-0.1); BASOPHILS % (AUTO) 0 % (0-1); EOSINOPHILS % (AUTO) 0 % (1-7); LYMPHOCYTES # (AUTO) 0.46 x10^3/uL (1-3.4); LYMPHOCYTES % (AUTO) 6 % (22-44); MD NO; MEAN CORPUSCULAR HEMOGLOBIN 29.6 pg (27.5-34.5); MEAN CORPUSCULAR HGB CONC 32.6 g/dL (33.2-36.2); MEAN CORPUSCULAR VOLUME 90.9 fL (81-97); MONOCYTES # (AUTO) 0.52 x10^3/uL (0.2-0.8); MONOCYTES % (AUTO) 7 % (2-9); NEUTROPHILS # (AUTO) 6.62 x10^3/uL (1.8-6.8); NEUTROPHILS % (AUTO) 87 % (42-75); PLATELET COUNT 213 x10^3/uL (130-400); RED BLOOD COUNT 2.93 x10^6/uL (4.38-5.82); RED CELL DISTRIBUTION WIDTH 17.7 % (9.4-14.8)
[2020-02-09 08:41] LABS: ANION GAP 5 mmol/L (5-15); CALCIUM 8.9 mg/dL (8.5-10.1); CHLORIDE 99 mmol/L (98-107); CREATININE 1.73 mg/dL (0.7-1.3)
[2020-02-09] MEDS: BUDESONIDE 0.5 MG/2 ML INHA INH SCH ×2 (09:00→19:45)
[2020-02-09] MEDS: SERTRALINE 100MG TABLET PO SCH (10:09)
[2020-02-09] MEDS: ALLOPURINOL 100 MG TABLET PO SCH (10:09)
[2020-02-09] MEDS: MULTIVITAMIN 1 TABLET PO SCH (10:09)
[2020-02-09] MEDS: FERROUS SULFATE 325 MG TABLET PO SCH ×2 (10:09→20:24)
[2020-02-09] MEDS: LACTOBACILLUS CHEW TABLET PO SCH ×3 (10:10→20:24)
[2020-02-09] MEDS: SODIUM CHLORIDE FLUSH 10ML SYR IVF SCH ×2 (10:10→20:28)
[2020-02-09] MEDS: FOLIC ACID 1 MG TABLET PO SCH (10:10)
[2020-02-09] MEDS: THIAMINE 100MG TABLET PO SCH (10:12)
[2020-02-09] MEDS: GABAPENTIN 100 MG CAPSULE PO SCH ×2 (10:12→20:24)
[2020-02-09] MEDS ORDERED: MIDAZOLAM 1 MG/ML, 2ML ONE (14:45)
[2020-02-09] MEDS ORDERED: CEFAZOLIN 1,000 MG ONE (14:46)
[2020-02-09] MEDS ORDERED: SUGAMMADEX 200 MG/2 ML IVPush ONE (14:46)
[2020-02-09] MEDS ORDERED: ONDANSETRON 2MG/ML, 2ML ONE (14:46)
[2020-02-09] MEDS ORDERED: FENTANYL PF 250 MCG/5ML ONE (14:46)
[2020-02-09] MEDS ORDERED: PHENYLEPHRINE 10 MG/ML ONE (14:46)
[2020-02-09] MEDS ORDERED: SUCCINYLCHOLINE 20 MG/ML, 10ML ONE ×2 (15:49)
[2020-02-09] MEDS ORDERED: PROPOFOL 10 MG/ML, 20ML ONE (15:49)
[2020-02-09] MEDS ORDERED: ROCURONIUM 10MG/ML,5ML ONE (15:49)
[2020-02-09] MEDS ORDERED: NEOSPORIN OINT, 15GM ONE (15:52)
[2020-02-09] MEDS ORDERED: HYDROmorphone 1 MG/ML, 1ML INJ ONE (16:21)
[2020-02-09] MEDS ORDERED: FENTANYL PF 100 MCG/2ML ONE (16:21)
[2020-02-09] MEDS: FENTANYL PF 100 MCG/2ML IV PRN ×2 (16:25→16:50)
[2020-02-09] MEDS ORDERED: ACETAMINOPHEN 325 MG TABLET PO PRN (16:30)
[2020-02-09] MEDS ORDERED: HALOPERIDOL 5 MG/ML IV PRN (16:30)
[2020-02-09] MEDS ORDERED: ONDANSETRON ODT 8 MG PO PRN (16:30)
[2020-02-09] MEDS ORDERED: PROMETHAZINE 25 MG/ML, 1ML IV PRN (16:30)
[2020-02-09] MEDS ORDERED: EPHEDRINE 50 MG/ML, 1ML IVPush PRN (16:30)
[2020-02-09] MEDS ORDERED: DIAZEPAM 5 MG/ML, 2ML IVPush PRN (16:30)
[2020-02-09] MEDS ORDERED: MEPERIDINE/PF 25MG/ML,1ML IVPush PRN (16:30)
[2020-02-09] MEDS ORDERED: ONDANSETRON 2MG/ML, 2ML IV PRN (16:30)
[2020-02-09] MEDS ORDERED: ALBUTEROL SULFATE 2.5 MG/3 ML NPPB PRN (16:30)
[2020-02-09] MEDS ORDERED: OXYcodone 5 MG/5 ML ORAL.SOL UDC PO PRN (16:30)
[2020-02-09] MEDS ORDERED: LABETALOL 5MG/ML, 20ML IV PRN (16:30)
[2020-02-09] MEDS ORDERED: PROMETHAZINE 12.5 MG SUPP PR PRN (16:30)
[2020-02-09] MEDS ORDERED: hydrALAzine 20 MG/ML, 1ML IV PRN (16:30)
[2020-02-09] MEDS ORDERED: MIDAZOLAM 1 MG/ML, 2ML IV PRN (16:30)
[2020-02-09] MEDS: HYDROmorphone 2 MG/ML, 1ML IVPush PRN ×3 (16:37→17:37)
[2020-02-09] MEDS ORDERED: morphine SULFATE 10 MG/ML, 1ML IV PRN (18:30)
[2020-02-09] MEDS ORDERED: CYCLOBENZAPRINE 10 MG TABLET PO PRN (19:00)
[2020-02-09 19:25] VITALS: BP 110/70
[2020-02-09] MEDS: QUETIAPINE 25MG TABLET PO SCH (20:24)
[2020-02-09] MEDS: CEFAZOLIN PMX 1GM/50ML 50 ML IVPB SCH (20:24)
[2020-02-09] MEDS: POTASSIUM CHLORIDE 20 MEQ in LACTATED RINGERS 1,000 ML IV SCH (20:25)
[2020-02-10 00:27] VITALS: BP 105/67
[2020-02-10 03:46] VITALS: BP 114/72
[2020-02-10] MEDS: CEFAZOLIN PMX 1GM/50ML 50 ML IVPB SCH (04:09)
[2020-02-10 04:28] LABS: BASOPHILS # (AUTO) 0.01 x10^3/uL (0-0.1); BASOPHILS % (AUTO) 0 % (0-1); EOSINOPHILS % (AUTO) 0 % (1-7); LYMPHOCYTES # (AUTO) 0.85 x10^3/uL (1-3.4); LYMPHOCYTES % (AUTO) 11 % (22-44); MD NO; MEAN CORPUSCULAR HEMOGLOBIN 29.5 pg (27.5-34.5); MEAN CORPUSCULAR HGB CONC 32.6 g/dL (33.2-36.2); MEAN CORPUSCULAR VOLUME 90.4 fL (81-97); MEAN PLATELET VOLUME 8.6 fL (7.4-10.4); MONOCYTES # (AUTO) 0.86 x10^3/uL (0.2-0.8); MONOCYTES % (AUTO) 12 % (2-9); NEUTROPHILS # (AUTO) 5.79 x10^3/uL (1.8-6.8); NEUTROPHILS % (AUTO) 77 % (42-75); PLATELET COUNT 179 x10^3/uL (130-400); RED BLOOD COUNT 2.62 x10^6/uL (4.38-5.82); RED CELL DISTRIBUTION WIDTH 17.4 % (9.4-14.8)
[2020-02-10 04:34] LABS: ANION GAP 8 mmol/L (5-15); CALCIUM 8.6 mg/dL (8.5-10.1); CHLORIDE 102 mmol/L (98-107); CREATININE 1.53 mg/dL (0.7-1.3)
[2020-02-10] MEDS: PANTOPRAZOLE 40MG TABLET PO SCH (05:45)
[2020-02-10] MEDS: CARVEDILOL 12.5 MG TABLET PO SCH ×2 (05:46→17:36)
[2020-02-10] MEDS: morphine SULFATE 10 MG/ML, 1ML IV PRN ×2 (05:52→13:08)
[2020-02-10 06:53] VITALS: BP 109/73
[2020-02-10] MEDS: BUDESONIDE 0.5 MG/2 ML INHA INH SCH ×2 (09:00→21:00)
[2020-02-10] MEDS: FERROUS SULFATE 325 MG TABLET PO SCH ×2 (09:01→20:38)
[2020-02-10] MEDS: MULTIVITAMIN 1 TABLET PO SCH (09:01)
[2020-02-10] MEDS: FOLIC ACID 1 MG TABLET PO SCH (09:01)
[2020-02-10] MEDS: LACTOBACILLUS CHEW TABLET PO SCH ×3 (09:01→20:37)
[2020-02-10] MEDS: ALLOPURINOL 100 MG TABLET PO SCH (09:01)
[2020-02-10] MEDS: THIAMINE 100MG TABLET PO SCH (09:01)
[2020-02-10] MEDS: ASCORBIC ACID 500 MG TABLET PO SCH ×2 (09:01→16:16)
[2020-02-10] MEDS: CETIRIZINE 10 MG TABLET PO SCH (09:01)
[2020-02-10] MEDS: GABAPENTIN 100 MG CAPSULE PO SCH ×2 (09:01→20:42)
[2020-02-10] MEDS: SODIUM CHLORIDE FLUSH 10ML SYR IVF SCH ×2 (09:02→20:42)
[2020-02-10] MEDS: SERTRALINE 100MG TABLET PO SCH (09:02)
[2020-02-10] MEDS: FLUTICASONE NASAL SPRAY 16GM NAS SCH (10:08)
[2020-02-10] MEDS: POTASSIUM CHLORIDE 20 MEQ in LACTATED RINGERS 1,000 ML IV SCH (10:08)
[2020-02-10] MEDS: CEFTRIAXONE PMX 2GM/50ML 50 ML IV SCH ×2 (10:17→23:09)
[2020-02-10] MEDS ORDERED: SODIUM CHLORIDE 0.9% 1,000ML IVBOLUS ONE (14:30)
[2020-02-10 14:36] VITALS: BP 101/69
[2020-02-10 17:36] VITALS: BP 107/59
[2020-02-10 19:06] VITALS: BP 102/69
[2020-02-10] MEDS: QUETIAPINE 25MG TABLET PO SCH (20:38)
[2020-02-11 00:38] VITALS: BP 108/70
[2020-02-11] MEDS: POTASSIUM CHLORIDE 20 MEQ in LACTATED RINGERS 1,000 ML IV SCH ×2 (01:44→14:40)
[2020-02-11 05:38] VITALS: BP 151/96
[2020-02-11 05:46] LABS: BASOPHILS # (AUTO) 0.02 x10^3/uL (0-0.1); BASOPHILS % (AUTO) 0 % (0-1); EOSINOPHILS % (AUTO) 2 % (1-7); LYMPHOCYTES # (AUTO) 1.07 x10^3/uL (1-3.4); LYMPHOCYTES % (AUTO) 16 % (22-44); MD NO; MEAN CORPUSCULAR HEMOGLOBIN 29.2 pg (27.5-34.5); MEAN CORPUSCULAR HGB CONC 32.1 g/dL (33.2-36.2); MEAN PLATELET VOLUME 8.5 fL (7.4-10.4); MONOCYTES # (AUTO) 1.01 x10^3/uL (0.2-0.8); MONOCYTES % (AUTO) 15 % (2-9); NEUTROPHILS % (AUTO) 68 % (42-75); PLATELET COUNT 195 x10^3/uL (130-400); RED BLOOD COUNT 2.53 x10^6/uL (4.38-5.82); RED CELL DISTRIBUTION WIDTH 17.2 % (9.4-14.8)
[2020-02-11] MEDS: PANTOPRAZOLE 40MG TABLET PO SCH (05:48)
[2020-02-11] MEDS: CARVEDILOL 12.5 MG TABLET PO SCH ×2 (05:48→17:10)
[2020-02-11 05:50] LABS: ANION GAP 6 mmol/L (5-15); CALCIUM 8.5 mg/dL (8.5-10.1); CHLORIDE 102 mmol/L (98-107); CREATININE 1.43 mg/dL (0.7-1.3)
[2020-02-11] MEDS: BUDESONIDE 0.5 MG/2 ML INHA INH SCH ×2 (06:55→20:39)
[2020-02-11] MEDS ORDERED: MAGNESIUM SULFATE PMX 2GM/50ML 50 ML IV ONE (07:30)
[2020-02-11] MEDS: FLUTICASONE NASAL SPRAY 16GM NAS SCH (07:48)
[2020-02-11] MEDS: ALLOPURINOL 100 MG TABLET PO SCH (07:48)
[2020-02-11] MEDS: LACTOBACILLUS CHEW TABLET PO SCH ×3 (07:48→21:05)
[2020-02-11] MEDS: GABAPENTIN 100 MG CAPSULE PO SCH ×2 (07:48→21:05)
[2020-02-11] MEDS: FOLIC ACID 1 MG TABLET PO SCH (07:48)
[2020-02-11] MEDS: FERROUS SULFATE 325 MG TABLET PO SCH ×2 (07:48→21:05)
[2020-02-11] MEDS: CETIRIZINE 10 MG TABLET PO SCH (07:48)
[2020-02-11] MEDS: ASCORBIC ACID 500 MG TABLET PO SCH ×2 (07:48→17:14)
[2020-02-11] MEDS: MULTIVITAMIN 1 TABLET PO SCH (07:48)
[2020-02-11] MEDS: THIAMINE 100MG TABLET PO SCH (07:49)
[2020-02-11] MEDS: SERTRALINE 100MG TABLET PO SCH (07:49)
[2020-02-11] MEDS: SODIUM CHLORIDE FLUSH 10ML SYR IVF SCH ×2 (07:57→21:05)
[2020-02-11 09:05] VITALS: BP 104/68
[2020-02-11] MEDS: CEFTRIAXONE PMX 2GM/50ML 50 ML IV SCH ×2 (11:13→23:07)
[2020-02-11 15:34] VITALS: BP 127/77
[2020-02-11 18:59] VITALS: BP 112/72
[2020-02-11] MEDS: QUETIAPINE 25MG TABLET PO SCH (21:05)
[2020-02-11] MEDS: morphine SULFATE 10 MG/ML, 1ML IV PRN (22:48)
[2020-02-12] MEDS: LORazepam 0.5MG TABLET PO PRN (00:19)
[2020-02-12 00:51] VITALS: BP 118/77
[2020-02-12] MEDS: POTASSIUM CHLORIDE 20 MEQ in LACTATED RINGERS 1,000 ML IV SCH ×3 (02:02→22:42)
[2020-02-12] MEDS: PANTOPRAZOLE 40MG TABLET PO SCH (05:16)
[2020-02-12 05:48] LABS: ANION GAP 6 mmol/L (5-15); CALCIUM 8.6 mg/dL (8.5-10.1); CHLORIDE 106 mmol/L (98-107); CREATININE 1.11 mg/dL (0.7-1.3)
[2020-02-12 05:59] LABS: MEAN CORPUSCULAR HEMOGLOBIN 29.3 pg (27.5-34.5); MEAN CORPUSCULAR HGB CONC 32.3 g/dL (33.2-36.2); MEAN CORPUSCULAR VOLUME 90.8 fL (81-97); MEAN PLATELET VOLUME 8.7 fL (7.4-10.4); PLATELET COUNT 188 x10^3/uL (130-400); RED BLOOD COUNT 2.47 x10^6/uL (4.38-5.82)
[2020-02-12 06:31] LABS: BASOPHILS # (AUTO) 0.01 x10^3/uL (0-0.1); BASOPHILS % (AUTO) 0 % (0-1); EOSINOPHILS % (AUTO) 0 % (1-7); LYMPHOCYTES # (AUTO) 1.13 x10^3/uL (1-3.4); LYMPHOCYTES % (AUTO) 19 % (22-44); MD MORPH REVIEW ONLY; MONOCYTES % (AUTO) 16 % (2-9); NEUTROPHILS # (AUTO) 3.78 x10^3/uL (1.8-6.8); NEUTROPHILS % (AUTO) 65 % (42-75)
[2020-02-12 06:32] LABS: ANISOCYTOSIS 1+; OVALOCYTES 1+
[2020-02-12 06:33] LABS: HYPOCHROMIA 1+
[2020-02-12 06:34] LABS: <PLATELET ESTIMATE> ADEQUATE; <PLT MORPHOLOGY> NORMAL PLT MORPH
[2020-02-12 06:41] VITALS: BP 126/82
[2020-02-12] MEDS: BUDESONIDE 0.5 MG/2 ML INHA INH SCH ×2 (07:19→20:20)
[2020-02-12] MEDS: SERTRALINE 100MG TABLET PO SCH (08:36)
[2020-02-12] MEDS: ALLOPURINOL 100 MG TABLET PO SCH (08:36)
[2020-02-12] MEDS: GABAPENTIN 100 MG CAPSULE PO SCH ×2 (08:36→20:36)
[2020-02-12] MEDS: FOLIC ACID 1 MG TABLET PO SCH (08:36)
[2020-02-12] MEDS: FERROUS SULFATE 325 MG TABLET PO SCH ×2 (08:36→20:36)
[2020-02-12] MEDS: MULTIVITAMIN 1 TABLET PO SCH (08:36)
[2020-02-12] MEDS: LACTOBACILLUS CHEW TABLET PO SCH ×3 (08:37→20:35)
[2020-02-12] MEDS: CETIRIZINE 10 MG TABLET PO SCH (08:37)
[2020-02-12] MEDS: CARVEDILOL 12.5 MG TABLET PO SCH ×2 (08:37→16:24)
[2020-02-12] MEDS: SODIUM CHLORIDE FLUSH 10ML SYR IVF SCH ×2 (08:37→20:40)
[2020-02-12] MEDS: THIAMINE 100MG TABLET PO SCH (08:37)
[2020-02-12] MEDS: ASCORBIC ACID 500 MG TABLET PO SCH ×2 (08:37→16:24)
[2020-02-12] MEDS: FLUTICASONE NASAL SPRAY 16GM NAS SCH (09:00)
[2020-02-12] MEDS: CEFTRIAXONE PMX 2GM/50ML 50 ML IV SCH ×2 (11:19→23:17)
[2020-02-12 12:12] VITALS: BP 119/78
[2020-02-12 18:52] VITALS: BP 112/72
[2020-02-12] MEDS: QUETIAPINE 25MG TABLET PO SCH (20:36)
[2020-02-13 01:07] VITALS: BP 145/86
[2020-02-13 05:26] LABS: ALBUMIN 2.1 g/dL (3.4-5.0); ANION GAP 5 mmol/L (5-15); BASOPHILS # (AUTO) 0.02 x10^3/uL (0-0.1); BASOPHILS % (AUTO) 0 % (0-1); CALCIUM 8.8 mg/dL (8.5-10.1); CHLORIDE 105 mmol/L (98-107); CREATININE 0.96 mg/dL (0.7-1.3); EOSINOPHILS # (AUTO) 0.12 x10^3/uL (0-0.4); EOSINOPHILS % (AUTO) 2 % (1-7); LYMPHOCYTES # (AUTO) 1.23 x10^3/uL (1-3.4); LYMPHOCYTES % (AUTO) 19 % (22-44); MD NO; MEAN CORPUSCULAR HEMOGLOBIN 29.4 pg (27.5-34.5); MEAN CORPUSCULAR HGB CONC 32.7 g/dL (33.2-36.2); MEAN CORPUSCULAR VOLUME 90.1 fL (81-97); MEAN PLATELET VOLUME 8.9 fL (7.4-10.4); MONOCYTES # (AUTO) 0.95 x10^3/uL (0.2-0.8); MONOCYTES % (AUTO) 15 % (2-9); NEUTROPHILS # (AUTO) 4.05 x10^3/uL (1.8-6.8); NEUTROPHILS % (AUTO) 64 % (42-75); PLATELET COUNT 217 x10^3/uL (130-400); RED BLOOD COUNT 2.66 x10^6/uL (4.38-5.82); RED CELL DISTRIBUTION WIDTH 17.1 % (9.4-14.8)
[2020-02-13] MEDS: PANTOPRAZOLE 40MG TABLET PO SCH (05:42)
[2020-02-13] MEDS: CARVEDILOL 12.5 MG TABLET PO SCH ×2 (05:51→17:54)
[2020-02-13] MEDS: BUDESONIDE 0.5 MG/2 ML INHA INH SCH ×2 (07:06→20:50)
[2020-02-13 07:18] VITALS: BP 155/98
[2020-02-13] MEDS: FLUTICASONE NASAL SPRAY 16GM NAS SCH (09:00)
[2020-02-13] MEDS: FOLIC ACID 1 MG TABLET PO SCH (09:04)
[2020-02-13] MEDS: ALLOPURINOL 100 MG TABLET PO SCH (09:04)
[2020-02-13] MEDS: GABAPENTIN 100 MG CAPSULE PO SCH ×2 (09:04→20:22)
[2020-02-13] MEDS: POTASSIUM CHLORIDE 20 MEQ in LACTATED RINGERS 1,000 ML IV SCH (09:04)
[2020-02-13] MEDS: FERROUS SULFATE 325 MG TABLET PO SCH ×2 (09:04→20:22)
[2020-02-13] MEDS: SERTRALINE 100MG TABLET PO SCH (09:04)
[2020-02-13] MEDS: MULTIVITAMIN 1 TABLET PO SCH (09:04)
[2020-02-13] MEDS: LACTOBACILLUS CHEW TABLET PO SCH ×3 (09:05→20:22)
[2020-02-13] MEDS: ASCORBIC ACID 500 MG TABLET PO SCH ×2 (09:05→16:08)
[2020-02-13] MEDS: SODIUM CHLORIDE FLUSH 10ML SYR IVF SCH ×2 (09:05→20:23)
[2020-02-13] MEDS: CETIRIZINE 10 MG TABLET PO SCH (09:05)
[2020-02-13] MEDS: THIAMINE 100MG TABLET PO SCH (09:05)
[2020-02-13] MEDS ORDERED: INSTRUCTION SEE COMMENTS XX PRN (09:30)
[2020-02-13] MEDS ORDERED: QUETIAPINE 25MG TABLET PO PRN (09:30)
[2020-02-13] MEDS ORDERED: PHARMACY INSTRUCTION MC PRN (09:30)
[2020-02-13] MEDS: CEFTRIAXONE PMX 2GM/50ML 50 ML IV SCH ×2 (11:35→23:33)
[2020-02-13 13:12] VITALS: BP 144/89
[2020-02-13] MEDS: ERGOCALCIFEROL 50,000 UNIT CAPSULE PO SCH (13:57)
[2020-02-13 17:42] VITALS: BP 155/90
[2020-02-13 20:07] VITALS: BP 163/93
[2020-02-13] MEDS: MELATONIN 3 MG TABLET PO SCH (20:22)
[2020-02-13] MEDS: QUETIAPINE 25MG TABLET PO SCH (20:22)
[2020-02-14] MEDS: POTASSIUM CHLORIDE 20 MEQ in LACTATED RINGERS 1,000 ML IV SCH ×2 (02:00→16:37)
[2020-02-14 02:30] VITALS: BP 131/81
[2020-02-14 06:08] LABS: ALBUMIN 1.9 g/dL (3.4-5.0); ANION GAP 6 mmol/L (5-15); CALCIUM 8.8 mg/dL (8.5-10.1); CHLORIDE 109 mmol/L (98-107)
[2020-02-14 06:17] LABS: BASOPHILS # (AUTO) 0.04 x10^3/uL (0-0.1); BASOPHILS % (AUTO) 1 % (0-1); EOSINOPHILS # (AUTO) 0.14 x10^3/uL (0-0.4); EOSINOPHILS % (AUTO) 2 % (1-7); LYMPHOCYTES # (AUTO) 1.62 x10^3/uL (1-3.4); LYMPHOCYTES % (AUTO) 21 % (22-44); MD NO; MEAN CORPUSCULAR HEMOGLOBIN 28.8 pg (27.5-34.5); MEAN CORPUSCULAR HGB CONC 32.2 g/dL (33.2-36.2); MEAN CORPUSCULAR VOLUME 89.5 fL (81-97); MEAN PLATELET VOLUME 8.6 fL (7.4-10.4); MONOCYTES # (AUTO) 0.88 x10^3/uL (0.2-0.8); MONOCYTES % (AUTO) 11 % (2-9); NEUTROPHILS # (AUTO) 5.09 x10^3/uL (1.8-6.8); NEUTROPHILS % (AUTO) 66 % (42-75); PLATELET COUNT 274 x10^3/uL (130-400); RED BLOOD COUNT 2.66 x10^6/uL (4.38-5.82); RED CELL DISTRIBUTION WIDTH 16.4 % (9.4-14.8)
[2020-02-14] MEDS ORDERED: MAGNESIUM SULFATE PMX 2GM/50ML 50 ML IV ONE (07:30)
[2020-02-14] MEDS: CARVEDILOL 12.5 MG TABLET PO SCH ×2 (08:29→18:06)
[2020-02-14] MEDS: CETIRIZINE 10 MG TABLET PO SCH (08:29)
[2020-02-14] MEDS: MULTIVITAMIN 1 TABLET PO SCH (08:29)
[2020-02-14] MEDS: FOLIC ACID 1 MG TABLET PO SCH (08:29)
[2020-02-14] MEDS: SODIUM CHLORIDE FLUSH 10ML SYR IVF SCH ×2 (08:30→20:13)
[2020-02-14] MEDS: PANTOPRAZOLE 40MG TABLET PO SCH (08:30)
[2020-02-14] MEDS: FLUTICASONE NASAL SPRAY 16GM NAS SCH (08:30)
[2020-02-14] MEDS: FERROUS SULFATE 325 MG TABLET PO SCH ×2 (08:30→20:14)
[2020-02-14] MEDS: ALLOPURINOL 100 MG TABLET PO SCH (08:30)
[2020-02-14] MEDS: SERTRALINE 100MG TABLET PO SCH (08:30)
[2020-02-14] MEDS: THIAMINE 100MG TABLET PO SCH (08:30)
[2020-02-14] MEDS: GABAPENTIN 100 MG CAPSULE PO SCH ×2 (08:30→20:14)
[2020-02-14] MEDS: ASCORBIC ACID 500 MG TABLET PO SCH ×2 (08:30→16:37)
[2020-02-14] MEDS: LACTOBACILLUS CHEW TABLET PO SCH ×3 (08:38→20:14)
[2020-02-14 08:43] VITALS: BP 144/85
[2020-02-14] MEDS: BUDESONIDE 0.5 MG/2 ML INHA INH SCH ×2 (09:35→20:00)
[2020-02-14] MEDS: CEFTRIAXONE PMX 2GM/50ML 50 ML IV SCH (11:12)
[2020-02-14] MEDS: LEVOFLOXACIN 750 MG TABLET PO SCH (14:43)
[2020-02-14 15:59] VITALS: BP 135/83
[2020-02-14] MEDS: QUETIAPINE 25MG TABLET PO SCH (20:14)
[2020-02-14] MEDS: MELATONIN 3 MG TABLET PO SCH (20:14)
[2020-02-14 20:18] VITALS: BP 135/86
[2020-02-15] VITALS (7 sets, daily range): BP systolic 137–172; BP diastolic 82–97
[2020-02-15] MEDS: POTASSIUM CHLORIDE 20 MEQ in LACTATED RINGERS 1,000 ML IV SCH (02:59)
[2020-02-15] MEDS: PANTOPRAZOLE 40MG TABLET PO SCH (05:05)
[2020-02-15] MEDS: CARVEDILOL 12.5 MG TABLET PO SCH ×2 (05:06→18:58)
[2020-02-15 05:21] LABS: ALBUMIN 1.8 g/dL (3.4-5.0); ANION GAP 5 mmol/L (5-15); CALCIUM 8.6 mg/dL (8.5-10.1); CHLORIDE 110 mmol/L (98-107); CREATININE 0.82 mg/dL (0.7-1.3); MEAN CORPUSCULAR HEMOGLOBIN 28.9 pg (27.5-34.5); MEAN CORPUSCULAR HGB CONC 32.1 g/dL (33.2-36.2); MEAN CORPUSCULAR VOLUME 90.2 fL (81-97); PLATELET COUNT 334 x10^3/uL (130-400); RED BLOOD COUNT 2.49 x10^6/uL (4.38-5.82); RED CELL DISTRIBUTION WIDTH 17.8 % (9.4-14.8)
[2020-02-15 05:51] LABS: BASOPHILS # (AUTO) 0.03 x10^3/uL (0-0.1); BASOPHILS % (AUTO) 0 % (0-1); EOSINOPHILS # (AUTO) 0.14 x10^3/uL (0-0.4); EOSINOPHILS % (AUTO) 2 % (1-7); LYMPHOCYTES # (AUTO) 1.53 x10^3/uL (1-3.4); LYMPHOCYTES % (AUTO) 19 % (22-44); MD SCAN; MONOCYTES # (AUTO) 0.97 x10^3/uL (0.2-0.8); MONOCYTES % (AUTO) 12 % (2-9); NEUTROPHILS # (AUTO) 5.55 x10^3/uL (1.8-6.8); NEUTROPHILS % (AUTO) 68 % (42-75)
[2020-02-15] MEDS: BUDESONIDE 0.5 MG/2 ML INHA INH SCH ×2 (09:00→20:29)
[2020-02-15] MEDS ORDERED: LEVOFLOXACIN 750 MG TABLET PO SCH (09:00)
[2020-02-15] MEDS: LACTOBACILLUS CHEW TABLET PO SCH ×3 (10:35→20:41)
[2020-02-15] MEDS: SERTRALINE 100MG TABLET PO SCH (10:35)
[2020-02-15] MEDS: GABAPENTIN 100 MG CAPSULE PO SCH ×2 (10:35→20:41)
[2020-02-15] MEDS: ASCORBIC ACID 500 MG TABLET PO SCH ×2 (10:35→16:44)
[2020-02-15] MEDS: CETIRIZINE 10 MG TABLET PO SCH (10:36)
[2020-02-15] MEDS: FERROUS SULFATE 325 MG TABLET PO SCH ×2 (10:36→20:41)
[2020-02-15] MEDS: ALLOPURINOL 100 MG TABLET PO SCH (10:36)
[2020-02-15] MEDS: MULTIVITAMIN 1 TABLET PO SCH (10:36)
[2020-02-15] MEDS: LEVOFLOXACIN 750 MG TABLET PO SCH (10:36)
[2020-02-15] MEDS: FOLIC ACID 1 MG TABLET PO SCH (10:36)
[2020-02-15] MEDS: SODIUM CHLORIDE FLUSH 10ML SYR IVF SCH ×2 (10:38→20:41)
[2020-02-15] MEDS: THIAMINE 100MG TABLET PO SCH (10:39)
[2020-02-15] MEDS: FLUTICASONE NASAL SPRAY 16GM NAS SCH (16:44)
[2020-02-15] MEDS: MELATONIN 3 MG TABLET PO SCH (20:41)
[2020-02-15] MEDS: QUETIAPINE 25MG TABLET PO SCH (20:42)
[2020-02-16 02:00] VITALS: BP 149/89
[2020-02-16 04:55] LABS: BASOPHILS # (AUTO) 0.06 x10^3/uL (0-0.1); BASOPHILS % (AUTO) 1 % (0-1); EOSINOPHILS # (AUTO) 0.23 x10^3/uL (0-0.4); EOSINOPHILS % (AUTO) 2 % (1-7); LYMPHOCYTES % (AUTO) 19 % (22-44); MD NO; MEAN CORPUSCULAR VOLUME 90.5 fL (81-97); MEAN PLATELET VOLUME 7.7 fL (7.4-10.4); MONOCYTES % (AUTO) 9 % (2-9); NEUTROPHILS % (AUTO) 69 % (42-75); PLATELET COUNT 413 x10^3/uL (130-400); RED BLOOD COUNT 2.81 x10^6/uL (4.38-5.82)
[2020-02-16 05:04] LABS: ANION GAP 5 mmol/L (5-15); CALCIUM 8.7 mg/dL (8.5-10.1); CHLORIDE 111 mmol/L (98-107); CREATININE 0.88 mg/dL (0.7-1.3)
[2020-02-16] MEDS: PANTOPRAZOLE 40MG TABLET PO SCH (05:43)
[2020-02-16] MEDS: CARVEDILOL 12.5 MG TABLET PO SCH (05:44)
[2020-02-16 07:29] VITALS: BP 155/85
[2020-02-16] MEDS: CETIRIZINE 10 MG TABLET PO SCH (09:20)
[2020-02-16] MEDS: GABAPENTIN 100 MG CAPSULE PO SCH (09:20)
[2020-02-16] MEDS: LACTOBACILLUS CHEW TABLET PO SCH (09:20)
[2020-02-16] MEDS: ASCORBIC ACID 500 MG TABLET PO SCH (09:20)
[2020-02-16] MEDS: SERTRALINE 100MG TABLET PO SCH (09:21)
[2020-02-16] MEDS: FERROUS SULFATE 325 MG TABLET PO SCH (09:21)
[2020-02-16] MEDS: THIAMINE 100MG TABLET PO SCH (09:21)
[2020-02-16] MEDS: MULTIVITAMIN 1 TABLET PO SCH (09:21)
[2020-02-16] MEDS: FOLIC ACID 1 MG TABLET PO SCH (09:21)
[2020-02-16] MEDS: ALLOPURINOL 100 MG TABLET PO SCH (09:21)
[2020-02-16] MEDS: FLUTICASONE NASAL SPRAY 16GM NAS SCH (09:21)
[2020-02-16] MEDS: SODIUM CHLORIDE FLUSH 10ML SYR IVF SCH (09:22)
== END 2020-02-16 13:57 | DRG 853 ==
LOC: SUATTDRO 22:56 → ED 23:22 → EDIP 23:29 → ICU 23:38 → 4EST 01-13 20:34 → CCU 01-23 15:22 → 4NE 01-26 12:02 → CCU 01-28 04:39 → 4WST 01-28 13:34 → 4EST 02-11 20:01
PROVIDERS: ADMIT Internal Medicine; ATTEND Internal Medicine Infectious Disease
PROC: 0BH18EZ Insertion of Endotracheal Airway into Trachea, Via Natural or Artificial Opening Endoscopic (ICD-10-PCS; 2020-01-23)
PROC: 0BNK4ZZ Release Right Lung, Percutaneous Endoscopic Approach (ICD-10-PCS; 2020-01-23)
PROC: 5A1955Z Respiratory Ventilation, Greater than 96 Consecutive Hours (ICD-10-PCS; principal; 2020-01-23 12:00)
PROC: 0W9B00Z Drainage of Left Pleural Cavity with Drainage Device, Open Approach (ICD-10-PCS; 2020-02-09)
DX: A40.9 Streptococcal sepsis, unspecified (principal); J96.21 Acute and chronic respiratory failure with hypoxia; N17.0 Acute kidney failure with tubular necrosis; J13 Pneumonia due to Streptococcus pneumoniae; I21.A1 Myocardial infarction type 2; J86.9 Pyothorax without fistula; J96.22 Acute and chronic respiratory failure with hypercapnia; J94.2 Hemothorax; I50.32 Chronic diastolic (congestive) heart failure; I47.1 Supraventricular tachycardia; J44.1 Chronic obstructive pulmonary disease with (acute) exacerbation; J44.0 Chronic obstructive pulmonary disease with (acute) lower respiratory infection; D62 Acute posthemorrhagic anemia; Z99.11 Dependence on respirator [ventilator] status; R65.20 Severe sepsis without septic shock; I11.0 Hypertensive heart disease with heart failure; F20.9 Schizophrenia, unspecified; F10.20 Alcohol dependence, uncomplicated; E11.40 Type 2 diabetes mellitus with diabetic neuropathy, unspecified; M10.9 Gout, unspecified; E55.9 Vitamin D deficiency, unspecified; F41.9 Anxiety disorder, unspecified; D53.9 Nutritional anemia, unspecified; F17.200 Nicotine dependence, unspecified, uncomplicated; D63.8 Anemia in other chronic diseases classified elsewhere; E87.6 Hypokalemia; F32.9 Major depressive disorder, single episode, unspecified; D75.82 Heparin induced thrombocytopenia (HIT); Z91.19 Patient's noncompliance with other medical treatment and regimen; Z79.899 Other long term (current) drug therapy; Z79.51 Long term (current) use of inhaled steroids; Z59.0 Homelessness
CPT/HCPCS: 31500; 32555; 32557; 36415; 36556; 36600; 71045; 71046; 71250; 74018; 74230; 76705; 76770; 76937; 76942; 77001; 78452; 80048; 80053; 80069; 80076; 81001; 82040; 82272; 82306; 82310; 82330; 82436; 82533; 82550; 82565; 82570; 82728; 82803; 82962; 83540; 83550; 83605; 83735; 83880; 83970; 84100; 84133; 84145; 84156; 84300; 84439; 84443; 84478; 84484; 84520; 84550; 85014; 85018; 85025; 85045; 85610; 85651; 85730; 86140; 86706; 86850; 86900; 86923; 87015; 87040; 87070; 87075; 87077; 87081; 87102; 87116; 87176; 87181; 87184; 87205; 87206; 87252; 87340; 87400; 88305; 90935; 93005; 93017; 93306; 94002; 94003; 94640; 96374; C1729; G0378; J0456; J0690; J0696; J1100; J1170; J1756; J1940; J2250; J2405; J2543; J2704; J2785; J3010; J3360; J3370; J3411; J3480; J7060; J7626; P9047; A9502; C1751; C1769; C9113; C9898; J0330; J0360; J1642; J1652; J1815; J2060; J2270; J2310; J2370; J2930; J3475; J3490; J7030; J7050; J7120; J7512; P9016

== ENCOUNTER 2020-07-20 19:42 | Emergency (ER) | payer MEDICARE, MEDICAID ==
[~2020-07-20] VITALS: Ht 170.2 cm; Wt 59.0 kg
[~2020-07-20 19:42] MED LIST changes: +ALBU6.7H8 INH; +CEFT2PIG2 INJ; -ETOMIDATE 40 MG/20 ML ONE; +FAMO-79 PO; +FERR-51 PO; +FURO40TA6 PO; +GABA-826 PO; +HYDR-3237 PO; +IBUP-1222 PO; +KETO10TA PO; +LISI5TAB7 PO; -MIDAZOLAM 1 MG/ML, 5ML ONE; +MULT-449 PO; +PANT40TA6 PO; +POTA10TA5 PO; -PROPOFOL 10 MG/ML, 100ML IV ONE; +QUET25TA7 PO; +SERT100T32 PO; -SUCCINYLCHOLINE 20 MG/ML, 10ML ONE; +TIOT18CA INH
[2020-07-20 21:22] LABS: BASOPHILS # (AUTO) 0.04 x10^3/uL (0-0.1); BASOPHILS % (AUTO) 1 % (0-1); EOSINOPHILS # (AUTO) 0.21 x10^3/uL (0-0.4); EOSINOPHILS % (AUTO) 2 % (1-7); LYMPHOCYTES # (AUTO) 1.98 x10^3/uL (1-3.4); LYMPHOCYTES % (AUTO) 23 % (22-44); MD NO; MEAN CORPUSCULAR HEMOGLOBIN 31.3 pg (27.5-34.5); MEAN CORPUSCULAR VOLUME 97.7 fL (81-97); MEAN PLATELET VOLUME 7.4 fL (7.4-10.4); MONOCYTES # (AUTO) 0.44 x10^3/uL (0.2-0.8); MONOCYTES % (AUTO) 5 % (2-9); NEUTROPHILS # (AUTO) 6.07 x10^3/uL (1.8-6.8); NEUTROPHILS % (AUTO) 70 % (42-75); PLATELET COUNT 266 x10^3/uL (130-400); RED BLOOD COUNT 4.43 x10^6/uL (4.38-5.82); RED CELL DISTRIBUTION WIDTH 19.4 % (9.4-14.8)
[2020-07-20 21:30] LABS: ALBUMIN 3.3 g/dL (3.4-5.0); ANION GAP 13 mmol/L (5-15); CALCIUM 8.8 mg/dL (8.5-10.1); CHLORIDE 106 mmol/L (98-107)
[2020-07-20 21:36] LABS: ALANINE AMINOTRANSFERASE 45 U/L (12-78); ALKALINE PHOSPHATASE 81 U/L (45-117); BILIRUBIN,TOTAL 0.7 mg/dL (0.2-1.0); CREATININE 1.57 mg/dL (0.7-1.3); TOTAL PROTEIN 7.6 g/dL (6.4-8.2)
[2020-07-20] MEDS ORDERED: DEXAMETHASONE 4 MG/ML, 5ML ONE (21:57)
[2020-07-20] MEDS ORDERED: DEXAMETHASONE 4 MG/ML, 1ML PO ONE (22:00)
[2020-07-20 22:07] VITALS: BP 128/78
== END 2020-07-20 22:23 | disposition home or self-care (01) ==
LOC: ED 20:12
DX: J43.9 Emphysema, unspecified (principal); R06.02 Shortness of breath; R00.0 Tachycardia, unspecified; I11.0 Hypertensive heart disease with heart failure; I50.9 Heart failure, unspecified; F17.200 Nicotine dependence, unspecified, uncomplicated
CPT/HCPCS: 36415; 71045; 80053; 83880; 85025; 93005; 99285; J1100

== ENCOUNTER 2020-07-28 14:50 | Inpatient (IN) | payer MEDICARE, MEDICAID ==
[~2020-07-28] VITALS: Ht 170.2 cm; Wt 67.3 kg
[2020-07-28] MEDS ORDERED: methylPREDNISolone SOD SUCC 125 MG/2 ML IV ONE (15:00)
[2020-07-28] MEDS ORDERED: SODIUM CHLORIDE 0.9% 1,000ML IVBOLUS ONE ×2 (15:00→16:30)
[2020-07-28] MEDS ORDERED: methylPREDNISolone SOD SUCC 125 MG/2 ML ONE (15:05)
[2020-07-28] MEDS ORDERED: ACETAMINOPHEN 500 MG TABLET ONE (15:06)
--- NOTE | 2020-07-28 15:21 | NUR ---
PT BIB EMS FOR SHOULDER PAIN AFTER SLEEPING ON THE CONCRETE LAST NIGHT. PT HR IN THE 140S WHEN [facility] FOUND HIM. PT HAS HX OF COPD BUT DOES NOT WEAR THE NORMAL 4LITERS OF O2 HE IS SUPPOSED TO. PT WAS 86% ON RM AIR WHEN [facility] GOT TO HIM. PT FOUND TO BE IN AFIB AND FEBRILE. EKG COMPLETE. LABS DRAWN. BLOOD CULTURES DRAWN AT THIS TIME.
[2020-07-28] MEDS ORDERED: ACETAMINOPHEN 500 MG TABLET PO ONE (15:30)
[2020-07-28 15:32] LABS: MEAN CORPUSCULAR HEMOGLOBIN 32.1 pg (27.5-34.5); MEAN CORPUSCULAR HGB CONC 32.5 g/dL (33.2-36.2); MEAN PLATELET VOLUME 8.2 fL (7.4-10.4); PLATELET COUNT 135 x10^3/uL (130-400); RED BLOOD COUNT 3.84 x10^6/uL (4.38-5.82); RED CELL DISTRIBUTION WIDTH 17.6 % (9.4-14.8)
[2020-07-28 15:47] LABS: ALANINE AMINOTRANSFERASE 13 U/L (12-78); ALBUMIN 2.4 g/dL (3.4-5.0); ANION GAP 12 mmol/L (5-15); CALCIUM 8.2 mg/dL (8.5-10.1); CHLORIDE 96 mmol/L (98-107); CREATININE 1.16 mg/dL (0.7-1.3)
[2020-07-28 15:49] LABS: ALKALINE PHOSPHATASE 70 U/L (45-117); BILIRUBIN,TOTAL 0.9 mg/dL (0.2-1.0); TOTAL PROTEIN 6.8 g/dL (6.4-8.2)
[2020-07-28 16:09] LABS: BASOPHILS % (AUTO) 0 % (0-1); EOSINOPHILS # (AUTO) 0.01 x10^3/uL (0-0.4); EOSINOPHILS % (AUTO) 0 % (1-7); LYMPHOCYTES # (AUTO) 0.27 x10^3/uL (1-3.4); LYMPHOCYTES % (AUTO) 1 % (22-44); MD SCAN; MONOCYTES # (AUTO) 1.73 x10^3/uL (0.2-0.8); MONOCYTES % (AUTO) 9 % (2-9); NEUTROPHILS # (AUTO) 17.48 x10^3/uL (1.8-6.8); NEUTROPHILS % (AUTO) 90 % (42-75)
[2020-07-28] MEDS ORDERED: CEFTRIAXONE PMX 1GM/50ML 50 ML ONE (16:28)
[2020-07-28] MEDS ORDERED: CEFTRIAXONE PMX 1GM/50ML 50 ML IV ONE (16:30)
--- NOTE | 2020-07-28 16:35 | NUR ---
LATE ENTRY: IV ABX INFUSING AT THIS TIME
[2020-07-28] MEDS ORDERED: DOXYCYCLINE 100 MG in DEXTROSE 5% 250 ML IV SCH (17:00)
[2020-07-28] MEDS ORDERED: POTASSIUM CHLORIDE 40 MEQ in SODIUM CHLORIDE 0.9% 500 ML IV ONE ×2 (17:00→17:30)
[2020-07-28] MEDS ORDERED: SENNA/DOCUSATE TABLET PO PRN (17:30)
[2020-07-28] MEDS: DILTIAZEM 125 MG in SODIUM CHLORIDE 0.9% 100 ML IV SCH (17:30)
[2020-07-28] MEDS ORDERED: ACETAMINOPHEN 325 MG TABLET PO PRN (17:30)
[2020-07-28] MEDS: POTASSIUM CHLORIDE 20 MEQ TAB.ER.PRT PO SCH (17:30)
[2020-07-28] MEDS ORDERED: ONDANSETRON ODT 4 MG PO PRN (17:30)
[2020-07-28] MEDS: NICOTINE 14MG/24 HR PATCH.TD24 TD SCH (17:30)
[2020-07-28] MEDS ORDERED: POLYETHYLENE GLYCOL 17 GM PACKET PO PRN (17:30)
[2020-07-28] MEDS ORDERED: ONDANSETRON 2MG/ML, 2ML IVPush PRN (17:30)
--- NOTE | 2020-07-28 17:34 | NUR ---
PT TO BE SWABBED FOR COVID.
[2020-07-28] MEDS ORDERED: CARVEDILOL 12.5 MG TABLET ONE (18:27)
[2020-07-28] MEDS: CEFTRIAXONE PMX 1GM/50ML 50 ML IV SCH (18:34)
[2020-07-28] MEDS: CARVEDILOL 12.5 MG TABLET PO SCH (18:34)
[2020-07-28 18:44] VITALS: BP 125/86
[2020-07-28] MEDS: ALBUTEROL HFA 90 MCG/SPRAY INH SCH (21:00)
[2020-07-28] MEDS: DOXYCYCLINE 100MG TABLET PO SCH (21:35)
[2020-07-28 21:51] LABS: TROPONIN I 0.015 ng/mL (0.000-0.045)
[2020-07-28] MEDS ORDERED: MAGNESIUM SULFATE PMX 2GM/50ML 50 ML IV ONE (22:00)
[2020-07-29 03:02] VITALS: BP 106/69
[2020-07-29] MEDS: DILTIAZEM 125 MG in SODIUM CHLORIDE 0.9% 100 ML IV SCH ×2 (05:29→14:36)
[2020-07-29] MEDS: ALBUTEROL HFA 90 MCG/SPRAY INH SCH ×4 (06:01→20:09)
[2020-07-29 06:08] LABS: MEAN CORPUSCULAR HEMOGLOBIN 31.8 pg (27.5-34.5); MEAN CORPUSCULAR HGB CONC 32.5 g/dL (33.2-36.2); MEAN PLATELET VOLUME 8.6 fL (7.4-10.4); PLATELET COUNT 115 x10^3/uL (130-400); RED BLOOD COUNT 3.59 x10^6/uL (4.38-5.82); RED CELL DISTRIBUTION WIDTH 17.7 % (9.4-14.8)
[2020-07-29 06:19] LABS: ANION GAP 11 mmol/L (5-15); CALCIUM 8.1 mg/dL (8.5-10.1); CHLORIDE 103 mmol/L (98-107)
[2020-07-29 06:25] LABS: ALANINE AMINOTRANSFERASE 12 U/L (12-78); ALKALINE PHOSPHATASE 77 U/L (45-117); BILIRUBIN,TOTAL 0.4 mg/dL (0.2-1.0); CREATININE 1.05 mg/dL (0.7-1.3); TOTAL PROTEIN 6.1 g/dL (6.4-8.2); TROPONIN I < 0.015 ng/mL (0.000-0.045)
[2020-07-29 06:36] LABS: MD YES
[2020-07-29 06:39] LABS: ANISOCYTOSIS 1+; BAND#(MANUAL) 2.55 x10^3/uL; BANDS%(MANUAL) 13 % (0-7); LYMPH#(MANUAL) 0.59 x10^3/uL (1-3.4); LYMPHS% (MANUAL) 3 % (22-44); MONOS#(MANUAL) 0.98 x10^3/uL (0.3-2.7); MONOS% (MANUAL) 5 % (2-9); SEG#(MANUAL) 15.48 x10^3/uL (1.8-6.8); SEGS% (MANUAL) 79 % (42-75); TOXIC GRAN 1+
[2020-07-29 06:40] LABS: OVALOCYTES 1+
[2020-07-29 06:41] LABS: <PLATELET ESTIMATE> DECREASED; <PLT MORPHOLOGY> NORMAL PLT MORPH; POLYCHROMASIA 1+
[2020-07-29 06:43] LABS: HCT (SEDRATE) 35.1 % (39.2-51.8)
[2020-07-29 06:44] VITALS: BP 96/62
[2020-07-29] MEDS: FUROSEMIDE 20 MG/2 ML IV SCH ×2 (09:37→17:17)
[2020-07-29] MEDS: CARVEDILOL 12.5 MG TABLET PO SCH ×2 (09:38→20:22)
[2020-07-29] MEDS: FOLIC ACID 1 MG TABLET PO SCH (09:38)
[2020-07-29] MEDS: MULTIVITAMIN 1 TABLET PO SCH (09:38)
[2020-07-29] MEDS: POTASSIUM CHLORIDE 20 MEQ TAB.ER.PRT PO SCH ×2 (09:38→17:17)
[2020-07-29] MEDS: DOXYCYCLINE 100MG TABLET PO SCH ×2 (09:38→20:22)
[2020-07-29] MEDS: ALLOPURINOL 100 MG TABLET PO SCH (09:39)
[2020-07-29] MEDS: SERTRALINE 100MG TABLET PO SCH (09:39)
[2020-07-29] MEDS: THIAMINE 100MG TABLET PO SCH (09:39)
[2020-07-29] MEDS: FONDAPARINUX 2.5 MG/0.5 ML SQ SCH (09:40)
[2020-07-29] MEDS: FLUTICASONE/VILANTEROL 200-25MCG/INH INH SCH (10:11)
[2020-07-29 12:12] VITALS: BP 108/67
[2020-07-29] MEDS: NICOTINE 14MG/24 HR PATCH.TD24 TD SCH (17:17)
[2020-07-29] MEDS: CEFTRIAXONE PMX 1GM/50ML 50 ML IV SCH (17:17)
[2020-07-29 18:22] VITALS: BP 126/77
[2020-07-29] MEDS: TRAZODONE 50MG TABLET PO PRN (20:22)
[2020-07-29] MEDS ORDERED: POTASSIUM CHLORIDE 20 MEQ TAB.ER.PRT PO ONE (22:30)
[2020-07-29] MEDS ORDERED: MAGNESIUM SULFATE PMX 2GM/50ML 50 ML IV ONE (22:30)
[2020-07-30 00:59] VITALS: BP 102/62
[2020-07-30] MEDS: ALBUTEROL HFA 90 MCG/SPRAY INH SCH ×4 (05:21→19:16)
[2020-07-30 07:00] VITALS: BP 108/73
[2020-07-30] MEDS: DILTIAZEM 125 MG in SODIUM CHLORIDE 0.9% 100 ML IV SCH (07:00)
[2020-07-30] MEDS: POTASSIUM CHLORIDE 20 MEQ TAB.ER.PRT PO SCH (08:00)
[2020-07-30 08:23] LABS: ANION GAP 7 mmol/L (5-15); CALCIUM 8.6 mg/dL (8.5-10.1); CHLORIDE 109 mmol/L (98-107)
[2020-07-30 08:24] LABS: CREATININE 0.88 mg/dL (0.7-1.3)
[2020-07-30] MEDS: FLUTICASONE/VILANTEROL 200-25MCG/INH INH SCH (09:05)
[2020-07-30] MEDS: FOLIC ACID 1 MG TABLET PO SCH (09:37)
[2020-07-30] MEDS: SERTRALINE 100MG TABLET PO SCH (09:37)
[2020-07-30] MEDS: DOXYCYCLINE 100MG TABLET PO SCH ×2 (09:37→21:48)
[2020-07-30] MEDS: MULTIVITAMIN 1 TABLET PO SCH (09:37)
[2020-07-30] MEDS: FUROSEMIDE 20 MG/2 ML IV SCH (09:38)
[2020-07-30] MEDS: ALLOPURINOL 100 MG TABLET PO SCH (09:38)
[2020-07-30] MEDS: FONDAPARINUX 2.5 MG/0.5 ML SQ SCH (09:38)
[2020-07-30] MEDS: CARVEDILOL 12.5 MG TABLET PO SCH ×2 (09:38→21:49)
[2020-07-30] MEDS: THIAMINE 100MG TABLET PO SCH (09:38)
[2020-07-30] MEDS ORDERED: CYCLOBENZAPRINE 10 MG TABLET PO PRN (10:30)
[2020-07-30] MEDS: GABAPENTIN 300 MG CAPSULE PO SCH ×3 (11:27→21:48)
[2020-07-30 12:29] VITALS: BP 115/74
[2020-07-30] MEDS: NICOTINE 14MG/24 HR PATCH.TD24 TD SCH (17:45)
[2020-07-30] MEDS: CEFTRIAXONE PMX 1GM/50ML 50 ML IV SCH (17:45)
[2020-07-30 21:47] VITALS: BP 123/80
[2020-07-31 00:51] VITALS: BP 107/67
[2020-07-31] MEDS: ALBUTEROL HFA 90 MCG/SPRAY INH SCH ×4 (06:00→19:21)
[2020-07-31] MEDS: FLUTICASONE/VILANTEROL 200-25MCG/INH INH SCH (06:50)
[2020-07-31 07:10] VITALS: BP 121/82
[2020-07-31 07:39] LABS: MEAN CORPUSCULAR HEMOGLOBIN 31.9 pg (27.5-34.5); MEAN CORPUSCULAR HGB CONC 31.7 g/dL (33.2-36.2); MEAN PLATELET VOLUME 7.8 fL (7.4-10.4); PLATELET COUNT 264 x10^3/uL (130-400); RED BLOOD COUNT 3.41 x10^6/uL (4.38-5.82); RED CELL DISTRIBUTION WIDTH 17.4 % (9.4-14.8)
[2020-07-31 07:43] LABS: ALANINE AMINOTRANSFERASE 15 U/L (12-78); ALBUMIN 2.1 g/dL (3.4-5.0); ANION GAP 6 mmol/L (5-15); CALCIUM 8.7 mg/dL (8.5-10.1); CHLORIDE 111 mmol/L (98-107)
[2020-07-31 07:47] LABS: ALKALINE PHOSPHATASE 98 U/L (45-117); BILIRUBIN,TOTAL 0.2 mg/dL (0.2-1.0); CREATININE 0.97 mg/dL (0.7-1.3); TOTAL PROTEIN 5.9 g/dL (6.4-8.2)
[2020-07-31 08:26] LABS: MD YES
[2020-07-31 08:28] LABS: ANISOCYTOSIS 1+; BANDS%(MANUAL) 1 % (0-7); LYMPH#(MANUAL) 0.97 x10^3/uL (1-3.4); LYMPHS% (MANUAL) 10 % (22-44); METAMYELOCYTES% (MANUAL) 1 % (0-1); MONOS#(MANUAL) 0.78 x10^3/uL (0.3-2.7); MONOS% (MANUAL) 8 % (2-9); MYELOCYTES# (MANUAL) 0.29 x10^3/uL (0-0); MYELOCYTES% (MANUAL) 3 % (0-0); SEG#(MANUAL) 7.47 x10^3/uL (1.8-6.8); SEGS% (MANUAL) 77 % (42-75)
[2020-07-31 08:31] LABS: <PLATELET ESTIMATE> ADEQUATE; <PLT MORPHOLOGY> NORMAL PLT MORPH; OVALOCYTES 1+
[2020-07-31 09:50] VITALS: BP 124/74
[2020-07-31] MEDS: FOLIC ACID 1 MG TABLET PO SCH (09:51)
[2020-07-31] MEDS: MULTIVITAMIN 1 TABLET PO SCH (09:51)
[2020-07-31] MEDS: GABAPENTIN 300 MG CAPSULE PO SCH ×3 (09:51→21:18)
[2020-07-31] MEDS: THIAMINE 100MG TABLET PO SCH (09:51)
[2020-07-31] MEDS: DOXYCYCLINE 100MG TABLET PO SCH ×2 (09:51→21:18)
[2020-07-31] MEDS: SERTRALINE 100MG TABLET PO SCH (09:51)
[2020-07-31] MEDS: ALLOPURINOL 100 MG TABLET PO SCH (09:51)
[2020-07-31] MEDS: CARVEDILOL 12.5 MG TABLET PO SCH ×2 (09:52→21:18)
[2020-07-31] MEDS: FONDAPARINUX 2.5 MG/0.5 ML SQ SCH (09:59)
[2020-07-31 13:25] VITALS: BP 102/73
[2020-07-31] MEDS: CEFTRIAXONE PMX 1GM/50ML 50 ML IV SCH (18:04)
[2020-07-31] MEDS: NICOTINE 14MG/24 HR PATCH.TD24 TD SCH (18:04)
[2020-07-31 18:43] VITALS: BP 120/70
[2020-07-31] MEDS: TRAZODONE 50MG TABLET PO PRN (21:18)
[2020-08-01 02:07] VITALS: BP 101/66
[2020-08-01] MEDS: ALBUTEROL HFA 90 MCG/SPRAY INH SCH ×2 (05:01→10:20)
[2020-08-01 07:40] VITALS: BP 136/87
[2020-08-01] MEDS ORDERED: ALLO100T30 PO (07:47)
[2020-08-01] MEDS ORDERED: TIOT18CA INH (07:47)
[2020-08-01] MEDS ORDERED: LISI5TAB7 PO (07:47)
[2020-08-01] MEDS ORDERED: CARV12.52 PO (07:47)
[2020-08-01] MEDS ORDERED: DOXY100T PO (07:47)
[2020-08-01] MEDS ORDERED: FOLI-17 PO (07:47)
[2020-08-01] MEDS ORDERED: MULT-449 PO (07:47)
[2020-08-01] MEDS ORDERED: CEFD300C37 PO (07:47)
[2020-08-01] MEDS ORDERED: ASPI-515 PO (07:48)
[2020-08-01] MEDS ORDERED: REGADENOSON 0.4 MG/5 ML SYRINGE ONE (08:44)
[2020-08-01] MEDS: FLUTICASONE/VILANTEROL 200-25MCG/INH INH SCH (10:20)
[2020-08-01] MEDS: MULTIVITAMIN 1 TABLET PO SCH (11:01)
[2020-08-01] MEDS: DOXYCYCLINE 100MG TABLET PO SCH (11:01)
[2020-08-01] MEDS: SERTRALINE 100MG TABLET PO SCH (11:01)
[2020-08-01] MEDS: FOLIC ACID 1 MG TABLET PO SCH (11:02)
[2020-08-01] MEDS: ALLOPURINOL 100 MG TABLET PO SCH (11:02)
[2020-08-01] MEDS: FONDAPARINUX 2.5 MG/0.5 ML SQ SCH (11:02)
[2020-08-01] MEDS: GABAPENTIN 300 MG CAPSULE PO SCH (11:02)
[2020-08-01] MEDS: THIAMINE 100MG TABLET PO SCH (11:02)
[2020-08-01] MEDS: CARVEDILOL 12.5 MG TABLET PO SCH (11:02)
[2020-08-01 14:00] VITALS: BP 148/70
== END 2020-08-01 15:20 | disposition home or self-care (01) | DRG 871 ==
LOC: ED 15:17 → 4EST 17:24 → 5SO 07-30 18:43 → DCLOUNGE 08-01 15:07
PROVIDERS: ADMIT Hospitalist; ATTEND Internal Medicine
DX: A41.9 Sepsis, unspecified organism (principal); J96.21 Acute and chronic respiratory failure with hypoxia; J15.6 Pneumonia due to other Gram-negative bacteria; I50.23 Acute on chronic systolic (congestive) heart failure; J18.1 Lobar pneumonia, unspecified organism; I13.0 Hypertensive heart and chronic kidney disease with heart failure and stage 1 through stage 4 chronic kidney disease, or unspecified chronic kidney disease; I42.6 Alcoholic cardiomyopathy; I47.2 Ventricular tachycardia; J44.0 Chronic obstructive pulmonary disease with (acute) lower respiratory infection; D53.9 Nutritional anemia, unspecified; E11.22 Type 2 diabetes mellitus with diabetic chronic kidney disease; E87.5 Hyperkalemia; E87.6 Hypokalemia; F10.20 Alcohol dependence, uncomplicated; F17.200 Nicotine dependence, unspecified, uncomplicated; F20.9 Schizophrenia, unspecified; F32.9 Major depressive disorder, single episode, unspecified; F41.1 Generalized anxiety disorder; I25.10 Atherosclerotic heart disease of native coronary artery without angina pectoris; I48.91 Unspecified atrial fibrillation; K70.9 Alcoholic liver disease, unspecified; Z20.828 Contact with and (suspected) exposure to other viral communicable diseases; N18.3 Chronic kidney disease, stage 3 (moderate); M10.9 Gout, unspecified; I49.3 Ventricular premature depolarization; Z91.19 Patient's noncompliance with other medical treatment and regimen; Z59.0 Homelessness; Y90.9 Presence of alcohol in blood, level not specified
CPT/HCPCS: 36415; 71045; 78452; 80048; 80053; 82728; 83605; 83615; 83735; 84145; 84443; 84484; 85025; 85379; 85651; 86140; 87040; 87635; 93005; 93017; 94640; 96365; 96375; 99285; G0378; J0696; J2785; J3480; J7060; A9502; J1652; J1940; J2930; J3475; J7030; J7040